=== PATIENT | male | born 1965 | race Caucasian/White ===

== ENCOUNTER 2021-05-12 19:28 | Inpatient (IN) | payer OTHER ==
[~2021-05-12] VITALS: Ht 190.5 cm; Wt 86.4 kg
[2021-05-12 19:54] LABS: BASOPHILS ABSOLUTE AUTO 0.02 K/mm3 (0.00-0.23); BASOPHILS PERCENT AUTO 0 % (0-2); EOSINOPHILS PERCENT AUTO 0 % (0-6); Hemoglobin 15.9 g/dL (13.5-17.5); IMMATURE GRAN ABSOLUTE AUTO 0.08 K/mm3 (0.00-0.10); IMMATURE GRAN PERCENT AUTO 1 % (0-1); LYMPHOCYTES ABSOLUTE AUTO 0.94 K/mm3 (0.84-5.20); LYMPHOCYTES PERCENT AUTO 8 % (21-46); MONOCYTES ABSOLUTE AUTO 1.17 K/mm3 (0.16-1.47); MONOCYTES PERCENT AUTO 10 % (4-13); Mean Corpuscular HGB 31.4 pg (26.0-34.0); Mean Corpuscular HGB Conc 33.1 g/dL (31.5-36.5); Mean Corpuscular Volume 95 fL (80-100); Mean Platelet Volume 9.7 fL (9.1-12.4); NEUTROPHILS ABSOLUTE AUTO 9.91 K/mm3 (1.96-9.15); NEUTROPHILS PERCENT AUTO 82 % (41-73); Platelet Count 359 K/mm3 (150-400); RDW Coefficient Variation 13.6 % (11.7-14.2); RDW Standard Deviation 47.3 fL (35.1-46.3); Red Blood Cell Count 5.06 M/mm3 (4.30-5.90); White Blood Cell Count 12.12 K/mm3 (4.00-11.30)
[2021-05-12 20:26] LABS: Troponin I 0.264 ng/mL (0.000-0.040)
[2021-05-12 21:18] LABS: Albumin, Blood 3.2 g/dL (3.4-5.0); Albumin/Globulin Ratio 0.7 (0.8-1.8); Bilirubin, Total 3.7 mg/dL (0.1-1.0); Bun/Creatinine Ratio 24.8 (12.0-20.0); Calcium, Blood 8.9 mg/dL (8.5-10.1); Creatinine, Blood 1.65 mg/dL (0.60-1.20); Globulin, Blood 4.3 g/dL (2.2-4.0); Potassium, Blood 4.9 mmol/L (3.5-5.5); Total Protein, Blood 7.5 g/dL (6.4-8.2)
[2021-05-13 04:50] LABS: Influenza A, PCR NEGATIVE (NEGATIVE); Influenza B, PCR NEGATIVE (NEGATIVE); Resp Syncytial Virus, PCR NEGATIVE (NEGATIVE); SARS-Cov-2 (COVID-19) PCR, MMC NEGATIVE (NEGATIVE)
[2021-05-13 04:57] LABS: Troponin I 0.228 ng/mL (0.000-0.040)
[2021-05-13 05:04] LABS: Albumin, Blood 3.2 g/dL (3.4-5.0); Albumin/Globulin Ratio 0.8 (0.8-1.8); Bilirubin, Total 3.3 mg/dL (0.1-1.0); Bun/Creatinine Ratio 27.7 (12.0-20.0); Calcium, Blood 9.1 mg/dL (8.5-10.1); Creatinine, Blood 1.55 mg/dL (0.60-1.20); Globulin, Blood 4.1 g/dL (2.2-4.0); Total Protein, Blood 7.3 g/dL (6.4-8.2)
[2021-05-13 05:18] LABS: Creatine Kinase MB 6.5 ng/mL (0.0-3.6); Creatine Kinase MB Index 1.6 (0.0-4.0)
[2021-05-13 05:39] LABS: BASOPHILS ABSOLUTE AUTO 0.02 K/mm3 (0.00-0.23); BASOPHILS PERCENT AUTO 0 % (0-2); EOSINOPHILS PERCENT AUTO 0 % (0-6); Hemoglobin 15.7 g/dL (13.5-17.5); IMMATURE GRAN ABSOLUTE AUTO 0.08 K/mm3 (0.00-0.10); IMMATURE GRAN PERCENT AUTO 1 % (0-1); LYMPHOCYTES ABSOLUTE AUTO 0.91 K/mm3 (0.84-5.20); LYMPHOCYTES PERCENT AUTO 7 % (21-46); MONOCYTES ABSOLUTE AUTO 0.87 K/mm3 (0.16-1.47); MONOCYTES PERCENT AUTO 7 % (4-13); Mean Corpuscular HGB 31.3 pg (26.0-34.0); Mean Corpuscular HGB Conc 34.1 g/dL (31.5-36.5); Mean Corpuscular Volume 92 fL (80-100); Mean Platelet Volume 9.8 fL (9.1-12.4); NEUTROPHILS ABSOLUTE AUTO 11.13 K/mm3 (1.96-9.15); NEUTROPHILS PERCENT AUTO 86 % (41-73); NRBC ABSOLUTE 0.02 K/mm3 (0.00-0.02); NRBC Auto 0.2 /100 WBC (0.0-0.2); Platelet Count 366 K/mm3 (150-400); RDW Coefficient Variation 13.4 % (11.7-14.2); RDW Standard Deviation 44.7 fL (35.1-46.3); Red Blood Cell Count 5.02 M/mm3 (4.30-5.90); White Blood Cell Count 13.01 K/mm3 (4.00-11.30)
[2021-05-13 11:29] LABS: Troponin I 0.219 ng/mL (0.000-0.040)
--- NOTE | 2021-05-13 11:31 | NUR ---
Echocardiogram completed.
[2021-05-13 11:44] LABS: Creatine Kinase MB 6.2 ng/mL (0.0-3.6); Creatine Kinase MB Index 1.9 (0.0-4.0)
[2021-05-13 12:08] LABS: U Amphetamine Screen DETECTED; U Barbituate Screen Not Detected; U Benzodiazapine Screen Not Detected; U Buprenorphine Screen Not Detected; U Cannabinoids Screen Not Detected; U Cocaine Screen Not Detected; U Methadone Screen Not Detected; U Methamphetamine Screen DETECTED; U Opiates Screen Not Detected; U Oxycodone Screen Not Detected; U Phencyclidine Screen Not Detected; U Propoxyphene Screen Not Detected
--- NOTE | 2021-05-13 18:48 | NUR ---
ADMIT NOTE RECEIVED REPORT FROM DIANA SCHAFER IN ED. PT TO ROOM AT 1444 VIA GURNEY, 1 PERSON ASSIST TRANSFERED TO BED. PT ORIENTED TO ROOM AND CALL LIGHT. EDCUATED ON FALL RISK AND BED ALARM. PT ALERT, BUT FALLS ASLEEP QUICKLY; ORIENTED x4; CALM AND COOPERATIVE WITH CARE. PT DENIES RECREATIONAL DRUG USE IN THE LAST 12 MONTHS. PT DENIES PAIN, CHEST PAIN, SOB, NAUSEA AND DIZZINESS AT THIS TIME. PT STATES PRIOR TO BEING ADMITTED HIS SOB HAS BEEN WORSENING OVER THE LAST 2-3 WEEKS. PT RECEIVING IV LASIX AND STARTED ON METOPROLOL. PT ON HEPARIN GTT. DR GUTIERRES AT BEDSIDE THIS EVENING TO SEE PATIENT. VSS. NO OTHER ACUTE CHANGES NOTED. WILL CONTINUE TO MONITOR UNITL REPORT GIVEN TO ONCOMING RN.
[2021-05-14 03:58] LABS: BASOPHILS ABSOLUTE AUTO 0.02 K/mm3 (0.00-0.23); BASOPHILS PERCENT AUTO 0 % (0-2); EOSINOPHILS ABSOLUTE AUTO 0.02 K/mm3 (0.00-0.68); EOSINOPHILS PERCENT AUTO 0 % (0-6); Hemoglobin 15.2 g/dL (13.5-17.5); IMMATURE GRAN ABSOLUTE AUTO 0.08 K/mm3 (0.00-0.10); IMMATURE GRAN PERCENT AUTO 1 % (0-1); LYMPHOCYTES ABSOLUTE AUTO 1.26 K/mm3 (0.84-5.20); LYMPHOCYTES PERCENT AUTO 9 % (21-46); MONOCYTES ABSOLUTE AUTO 0.88 K/mm3 (0.16-1.47); MONOCYTES PERCENT AUTO 6 % (4-13); Mean Corpuscular HGB 31.7 pg (26.0-34.0); Mean Corpuscular HGB Conc 34.5 g/dL (31.5-36.5); Mean Corpuscular Volume 92 fL (80-100); Mean Platelet Volume 10.3 fL (9.1-12.4); NEUTROPHILS ABSOLUTE AUTO 11.63 K/mm3 (1.96-9.15); NEUTROPHILS PERCENT AUTO 84 % (41-73); NRBC ABSOLUTE 0.06 K/mm3 (0.00-0.02); NRBC Auto 0.4 /100 WBC (0.0-0.2); Platelet Count 341 K/mm3 (150-400); RDW Coefficient Variation 13.6 % (11.7-14.2); Red Blood Cell Count 4.79 M/mm3 (4.30-5.90); White Blood Cell Count 13.89 K/mm3 (4.00-11.30)
[2021-05-14 04:20] LABS: Albumin, Blood 2.8 g/dL (3.4-5.0); Anion Gap 11 mmol/L (6-16); Blood Urea Nitrogen 39 mg/dL (8-24); Bun/Creatinine Ratio 27.7 (12.0-20.0); CO2, Blood 27 mmol/L (21-32); Calcium, Blood 8.5 mg/dL (8.5-10.1); Chloride, Blood 95 mmol/L (98-108); Creatinine, Blood 1.41 mg/dL (0.60-1.20); Glomerular Filtration Rate 52 (60-); Glucose, Blood 128 mg/dL (70-99); Magnesium, Blood 1.9 mg/dL (1.6-2.4); Phosphorus, Blood 3.1 mg/dL (2.5-4.9); Potassium, Blood 3.5 mmol/L (3.5-5.5); Sodium, Blood 133 mmol/L (136-145)
--- NOTE | 2021-05-14 05:20 | NUR ---
SHIFT SUMMARY PT A&OX4, PLEASANT AND COOPERATIVE. SP02>92% ON 2L NC. PT DENIES SOB. TELEMETYR READS SINUS TACH, 100'S. DENIED CP/PRESSURE. PT USED URINAL TO VOID DARK YELLOW URINE. NO BM THIS SHIFT. HEPARIN INFUSED THIS SHIFT. PT SLEPT MOST OF NIGHT. PT HAS BEEN NPO SINCE MIDNIGHT FOR POSSIBLE PROCEDURE. CALL LIGHT IN REACH. WILL GIVE REPORT TO ONCOMING NURSE.
--- NOTE | 2021-05-14 17:26 | NUR ---
SHIFT SUMMARY PT A&Ox4; CALM AND COOPERATIVE WITH CARE. PT RESTING IN BED DURING SHIFT. PT DENIES PAIN, CHEST PAIN, SOB, NASUEA AND DIZZINESS T/O SHIFT. PT RECEIVING IV LASIX. ELEVATED BP THIS AM, INCREASED DOSE OF METORPOLOL PER ORDERS, BP TRENDING DOWN. OTHER VSS. PLANS FOR NPO AT ND FOR POSSIBLE ANGIO TOMORROW. NO OTHER ACUTE CHANGES NOTED. WILL CONTINUE TO MONITOR UNTIL REPORT GIVEN TO ONCOMING RN.
--- NOTE | 2021-05-14 19:20 | NUR ---
ASSUMPTION OF CARE NOTE PT ALERT AND ORIENTED X 4. SPO2 97% VIA 2L NC. HEPARIN DRIP INFUSING IN RIGHT AC AT 18/UNITS/KG/HR. NO PAIN REPORTED. VITAL SIGNS STABLE, WILL CONTINUE TO MONITOR. CALL LIGHT IN REACH.
--- NOTE | 2021-05-14 20:27 | NUR ---
LEFT AC IV INFUSING HEPARIN PER ORDERS AT 18UNITS/KG/HR, 33.8ML/HR. PER REPORT HEPARIN DOSE HAS NOT CHANGED SINCE ADMITTANCE.
--- NOTE | 2021-05-15 02:45 | NUR ---
CARE NOTE PT WAS REPORTING FEELING OF DISTENTION IN ABD AND STATED THAT "STOMACH FELT UPSET," PT ALSO REPORTED FEELINGS OF NAUSEA. VSS, MEDICATED PER EMAR FOR NAUSEA. PT NOW APPEARS TO BE SLEEPING. WILL CONTINUE TO MONITOR.
[2021-05-15 03:49] LABS: BASOPHILS ABSOLUTE AUTO 0.01 K/mm3 (0.00-0.23); BASOPHILS PERCENT AUTO 0 % (0-2); EOSINOPHILS ABSOLUTE AUTO 0.04 K/mm3 (0.00-0.68); EOSINOPHILS PERCENT AUTO 0 % (0-6); Hematocrit 45.8 % (37.0-53.0); Hemoglobin 15.7 g/dL (13.5-17.5); IMMATURE GRAN ABSOLUTE AUTO 0.05 K/mm3 (0.00-0.10); IMMATURE GRAN PERCENT AUTO 0 % (0-1); LYMPHOCYTES ABSOLUTE AUTO 1.35 K/mm3 (0.84-5.20); LYMPHOCYTES PERCENT AUTO 11 % (21-46); MONOCYTES ABSOLUTE AUTO 0.98 K/mm3 (0.16-1.47); MONOCYTES PERCENT AUTO 8 % (4-13); Mean Corpuscular HGB 31.7 pg (26.0-34.0); Mean Corpuscular HGB Conc 34.3 g/dL (31.5-36.5); Mean Corpuscular Volume 92 fL (80-100); Mean Platelet Volume 10.4 fL (9.1-12.4); NEUTROPHILS ABSOLUTE AUTO 9.64 K/mm3 (1.96-9.15); NEUTROPHILS PERCENT AUTO 80 % (41-73); NRBC ABSOLUTE 0.02 K/mm3 (0.00-0.02); NRBC Auto 0.2 /100 WBC (0.0-0.2); Platelet Count 321 K/mm3 (150-400); RDW Coefficient Variation 13.7 % (11.7-14.2); RDW Standard Deviation 45.1 fL (35.1-46.3); Red Blood Cell Count 4.96 M/mm3 (4.30-5.90); White Blood Cell Count 12.07 K/mm3 (4.00-11.30)
[2021-05-15 04:25] LABS: Albumin, Blood 2.6 g/dL (3.4-5.0); Anion Gap 11 mmol/L (6-16); Blood Urea Nitrogen 33 mg/dL (8-24); Bun/Creatinine Ratio 25.6 (12.0-20.0); CO2, Blood 30 mmol/L (21-32); Calcium, Blood 8.1 mg/dL (8.5-10.1); Chloride, Blood 92 mmol/L (98-108); Creatinine, Blood 1.29 mg/dL (0.60-1.20); Glomerular Filtration Rate 57 (60-); Glucose, Blood 139 mg/dL (70-99); Magnesium, Blood 1.7 mg/dL (1.6-2.4); Phosphorus, Blood 2.3 mg/dL (2.5-4.9); Potassium, Blood 3.3 mmol/L (3.5-5.5); Sodium, Blood 133 mmol/L (136-145)
--- NOTE | 2021-05-15 06:03 | NUR ---
SHIFT SUMMARY PT ALERT AND ORIENTED X 4. HEPARIN INFUSING AT 18UNITS/KG/HR PER ORDERS. SPO2 REMAINS IN 90'S VIA 1LNC, VITAL SIGNS STABLE. PT DENIED CHEST PAIN/PRESSURE DURING SHIFT BUT REPORTED ABD PAIN AND NAUSEA. NAUSEA WAS RESOLVED AFTER ZOFRAN ADMINISTRATION PER EMAR AND PT REPORTS BELIEVING ABD PAIN IS DUE TO CONSTIPATION, WILL REPORT THIS TO ONCOMING NURSE FOR REQUEST FOR BOWEL CARE ORDERS. PT HAS BEEN NPO SINCE MIDNIGHT AND CONTINUES TO UTILIZE BEDSIDE URINAL. CALL LIGHT IN REACH, WILL CONTINUE TO MONITOR.
--- NOTE | 2021-05-15 18:01 | NUR ---
PT REMAINS A&OX4. AM BP ELEVATED- SCHEDULED BP MEDS ADMINISTERED, REMAINED WNL SINCE ADMINISTRATION. AFEBRILE. NO C/O PAIN. AUO. NO BM- C/O CONSTIPATION, ENCOURAGED FREQUENT AMBULATION. TOLERATING CURRENT DIET. HEPARIN GTT DC'D, TRANSITION TO [place] TONIGHT- NO S/S OF BLEEDING NOTED AT THIS TIME. ANGIO HELD PER CARDIO- NO RESCHEDULE DATE PROVIDED. BLE VENOUS DUPLEX COMPLETED- SEE RESULTS. FREQUENT ROUNDS TO ENSURE PT SAFETY. PT IN NO APPARENT DISTRESS AT THIS TIME. WILL CONTINUE TO MONITOR UNTIL TRANSFER OF CARE TO ONCOMING RN.
[2021-05-16 04:49] LABS: Albumin, Blood 2.7 g/dL (3.4-5.0); Anion Gap 10 mmol/L (6-16); Blood Urea Nitrogen 29 mg/dL (8-24); Bun/Creatinine Ratio 20.4 (12.0-20.0); CO2, Blood 32 mmol/L (21-32); Calcium, Blood 8.4 mg/dL (8.5-10.1); Chloride, Blood 90 mmol/L (98-108); Creatinine, Blood 1.42 mg/dL (0.60-1.20); Glomerular Filtration Rate 51 (60-); Glucose, Blood 133 mg/dL (70-99); Magnesium, Blood 1.9 mg/dL (1.6-2.4); Phosphorus, Blood 2.9 mg/dL (2.5-4.9); Potassium, Blood 3.1 mmol/L (3.5-5.5); Sodium, Blood 132 mmol/L (136-145)
--- NOTE | 2021-05-16 05:21 | NUR ---
PT HAS BEEN SLEEPING THROUGHOUT SHIFT. BP SLIGHTLY ELEVATED BUT NOT WITHIN PARAMETERS FOR PRN HYDRALAZINE. DIURESING. DENIES SOB OR CHEST PAIN. EDUCATED PATIENT ON DIAGNOSIS AND TREATMENT PLAN. CONTINUE EDUCATION DISEASE PROCESSES ARE NEW TO PATIENT.
[2021-05-16 08:09] LABS: HBSAG SCREEN Negative (Negative); HEP B CORE AB, TOT Negative (Negative); HEP C VIRUS AB <0.1 (0.0-0.9)
--- NOTE | 2021-05-16 15:56 | NUR ---
PT REMAINS A&OX4. AM BP ELEVATED- SCHEDULED BP MEDS ADMINISTERED, BP REMAINED WNL SINCE ADMINISTRATION. AUO. NO BM- C/O CONSTIPATION, FREQUENT AMBULATION AND ORAL INTAKE ENCOURAGE. TOLERATING CURRENT DIET. TENTATIVE ANGIO SCHEDULED TOMORROW (05/17), WILL NEED TO BE NPO AT 00:00 PER CARDIO. K REPLACED. FREQUENT ROUNDS TO ENSURE PT SAFETY. PT IN NO APPARENT DISTRESS AT THIS TIME. WILL CONTINUE TO MONITOR UNTIL TRANSFER OF CARE TO ONCOMING RN.
--- NOTE | 2021-05-16 22:08 | NUR ---
EVENT NOTE PT REQUESTED RN TO ROOM WITH COMPLAINT OF ITCHING AND TINGLING TO RIGHT HAND. IV SITE IS PATENT AND RUNNING LEVAQUIN AND LR TO R HAND. NO SWELLING OR REDNESS BUT PT IS VISIBLY SCRATCHING AND WIGGLING FINGERS. PLACED LEVAQUIN ON STAND-BY SINCE THIS IS A NEW MEDICATION AND NOTIFIED PRIMARY RN YFN OF NEED TO NOTIFY MD. ADVISED PT TO CALL AGAIN IF FURTHER CONCERNS OR CHANGES.
[2021-05-17 04:51] LABS: Albumin, Blood 2.6 g/dL (3.4-5.0); Anion Gap 10 mmol/L (6-16); Blood Urea Nitrogen 28 mg/dL (8-24); Bun/Creatinine Ratio 19.3 (12.0-20.0); CO2, Blood 32 mmol/L (21-32); Calcium, Blood 8.8 mg/dL (8.5-10.1); Chloride, Blood 88 mmol/L (98-108); Creatinine, Blood 1.45 mg/dL (0.60-1.20); Glomerular Filtration Rate 50 (60-); Glucose, Blood 139 mg/dL (70-99); Magnesium, Blood 1.9 mg/dL (1.6-2.4); Phosphorus, Blood 2.8 mg/dL (2.5-4.9); Potassium, Blood 3.6 mmol/L (3.5-5.5); Sodium, Blood 130 mmol/L (136-145)
--- NOTE | 2021-05-17 06:33 | NUR ---
PT REPORTING CONSITPATION AT STRT OF SHIFT. ADMINISERED STOOL SOFTNER, PT TAKES AHOWER AND IS ABLE TO HAVE BM. CONTINUE BOWEL REGIMEN.
--- NOTE | 2021-05-17 16:54 | NUR ---
PT A&OX4. VSS. NO C/O PAIN. AUO. TOLERATING CURRENT DIET. ANGIO COMPLETE- PENDING PROVIDENCE EVAL PER CARDIO. IVF STARTED. FREQUENT ROUNDS TO ENSURE PT SAFETY. PT IN NO APPARENT DISTRESS AT THIS TIME. WILL CONTINUE TO MONITOR UNTIL TRANSFER OF CARE TO ONCOMING RN.
--- NOTE | 2021-05-18 04:08 | NUR ---
NO SIGNIFICANT EVENTS THIS SHIFT. PT RECIEVED 1L NS, URINE IS RENITA COLORED. VSS, NO ABNORMAL CARDIAC RHYTHMS THIS SHIFT. PLACED RIGHT WRIST IN SPLINT PATIENT WAS OVER USING IT RESULTING IN SLIGHT OOZING FROM RADIAL SITE. STABALIZED WITH SPLINT PLACEMENT.
[2021-05-18 09:39] LABS: Alanine Aminotransfer (ALT/SGP 270 U/L (12-78); Albumin, Blood 2.4 g/dL (3.4-5.0); Albumin/Globulin Ratio 0.7 (0.8-1.8); Alk Phos 123 U/L (50-136); Anion Gap 9 mmol/L (6-16); Aspartate Aminotrans (AST/SGOT 95 U/L (12-37); Bilirubin, Total 1.3 mg/dL (0.1-1.0); Blood Urea Nitrogen 49 mg/dL (8-24); Bun/Creatinine Ratio 40.8 (12.0-20.0); CO2, Blood 26 mmol/L (21-32); Calcium, Blood 8.2 mg/dL (8.5-10.1); Chloride, Blood 97 mmol/L (98-108); Globulin, Blood 3.6 g/dL (2.2-4.0); Glomerular Filtration Rate >60 (60-); Glucose, Blood 115 mg/dL (70-99); Sodium, Blood 132 mmol/L (136-145)
--- NOTE | 2021-05-18 19:12 | NUR ---
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 PATIENT HAS BEEN ALERT AND ORIENTED, RESTING MOST OF THE DAY. I HELD HIS 1400 HYDRALAZINE, DUE TO LOWER BLOOD PRESSURE OF 90'S OVER 60'S AFTER TYPICALLTY BEING IN THE 120'S. NO PRN HYDRALAZINE USED THIS SHIFT, PATIENT DENIES CHEST PAIN, RESTING MOST OF THE DAY. AWAITING [place] FOR BED PLACEMENT.
[2021-05-19 04:36] LABS: Alanine Aminotransfer (ALT/SGP 196 U/L (12-78); Albumin, Blood 2.3 g/dL (3.4-5.0); Albumin/Globulin Ratio 0.6 (0.8-1.8); Alk Phos 107 U/L (50-136); Anion Gap 9 mmol/L (6-16); Aspartate Aminotrans (AST/SGOT 60 U/L (12-37); Bilirubin, Total 1.1 mg/dL (0.1-1.0); Blood Urea Nitrogen 59 mg/dL (8-24); CO2, Blood 25 mmol/L (21-32); Calcium, Blood 8.1 mg/dL (8.5-10.1); Chloride, Blood 97 mmol/L (98-108); Creatinine, Blood 1.18 mg/dL (0.60-1.20); Globulin, Blood 3.8 g/dL (2.2-4.0); Glomerular Filtration Rate >60 (60-); Glucose, Blood 130 mg/dL (70-99); Potassium, Blood 4.5 mmol/L (3.5-5.5); Sodium, Blood 131 mmol/L (136-145); Total Protein, Blood 6.1 g/dL (6.4-8.2)
--- NOTE | 2021-05-19 05:09 | NUR ---
KNOCKER OUT SUMMARY PT IS AXO X4. PT DENIED ANY CP OR PRESSURE THIS SHIFT. PT MAINTAINED O2 SATS >92% ON EM AIR THIS SHIFT. BP WNL AND STABLE THIS SHIFT. PT SLEPT COMFORTABLY IN BED FOR MOST OF THE SHIFT. PT NPO SINCE 2330 PER ORDER. WILL REPORT TO ONCOMING RN.
--- NOTE | 2021-05-19 11:09 | NUR ---
REPORT TO [facility] CHARGE NURSE FOR COBRA TRANSFER.
[2021-05-19 11:18] LABS: Influenza A, PCR NEGATIVE (NEGATIVE); Influenza B, PCR NEGATIVE (NEGATIVE); Resp Syncytial Virus, PCR NEGATIVE (NEGATIVE); SARS-Cov-2 (COVID-19) PCR, MMC NEGATIVE (NEGATIVE)
== END 2021-05-19 10:50 | disposition short-term general hospital (02) | DRG 280 ==
LOC: ER 19:28 → PCU 23:04 → ERHOLD 23:04 → PCU 05-13 14:35
PROVIDERS: Emergency Medicine; Internal Medicine; ADMIT Internal Medicine
PROC: 4A023N7 Measurement of Cardiac Sampling and Pressure, Left Heart, Percutaneous Approach (ICD-10-PCS; principal; 2021-05-17)
PROC: B2111ZZ Fluoroscopy of Multiple Coronary Arteries using Low Osmolar Contrast (ICD-10-PCS; 2021-05-17)
DX: I13.0 Hypertensive heart and chronic kidney disease with heart failure and stage 1 through stage 4 chronic kidney disease, or unspecified chronic kidney disease (principal); I21.4 Non-ST elevation (NSTEMI) myocardial infarction; J96.01 Acute respiratory failure with hypoxia; I50.21 Acute systolic (congestive) heart failure; R18.8 Other ascites; N17.9 Acute kidney failure, unspecified; I27.82 Chronic pulmonary embolism; Z20.822 Contact with and (suspected) exposure to COVID-19; N18.30 Chronic kidney disease, stage 3 unspecified; R74.01 Elevation of levels of liver transaminase levels; K74.60 Unspecified cirrhosis of liver; I27.20 Pulmonary hypertension, unspecified; E87.6 Hypokalemia; E83.42 Hypomagnesemia; E83.39 Other disorders of phosphorus metabolism; F10.20 Alcohol dependence, uncomplicated; Z28.21 Immunization not carried out because of patient refusal
CPT/HCPCS: 0241U; 36415; 71045; 71260; 76705; 76937; 80053; 80069; 82550; 82553; 83735; 83880; 84484; 85025; 85347; 85379; 85520; 86704; 86708; 86803; 87340; 93005; 93010; 93306; 93458; 93567; 93970; 94760; 96365; 96366; 96375; 96376; 99152; 99153; 99285-25; A9270; C1769; C1894; J0360; J1644; J1650; J1940; J2060; J2250; J2405; J3010; J3475; J7030; J7050; J7060; Q9967

== ENCOUNTER 2021-07-03 03:08 | Inpatient (IN) | payer OTHER ==
[~2021-07-03] VITALS: Ht 190.5 cm; Wt 95.5 kg
[~2021-07-03 03:08] MED LIST: ASPIR 8181 M1 PO; K-Dur20 MEQ PO; Lasix40 MG PO; Prinivil5 MG PO; Protonix40 MG PO; Toprol Xl25 MG PO
[2021-07-03 03:31] LABS: BASOPHILS ABSOLUTE AUTO 0.05 K/mm3 (0.00-0.23); BASOPHILS PERCENT AUTO 1 % (0-2); EOSINOPHILS PERCENT AUTO 1 % (0-6); Hematocrit 36.9 % (37.0-53.0); Hemoglobin 11.4 g/dL (13.5-17.5); IMMATURE GRAN ABSOLUTE AUTO 0.03 K/mm3 (0.00-0.10); IMMATURE GRAN PERCENT AUTO 0 % (0-1); LYMPHOCYTES ABSOLUTE AUTO 1.45 K/mm3 (0.84-5.20); LYMPHOCYTES PERCENT AUTO 15 % (21-46); MONOCYTES ABSOLUTE AUTO 0.88 K/mm3 (0.16-1.47); MONOCYTES PERCENT AUTO 9 % (4-13); Mean Corpuscular HGB 27.4 pg (26.0-34.0); Mean Corpuscular HGB Conc 30.9 g/dL (31.5-36.5); Mean Corpuscular Volume 89 fL (80-100); Mean Platelet Volume 9.1 fL (9.1-12.4); NEUTROPHILS ABSOLUTE AUTO 7.06 K/mm3 (1.96-9.15); NEUTROPHILS PERCENT AUTO 74 % (41-73); Platelet Count 463 K/mm3 (150-400); RDW Coefficient Variation 17.8 % (11.7-14.2); RDW Standard Deviation 58.6 fL (35.1-46.3); Red Blood Cell Count 4.16 M/mm3 (4.30-5.90); White Blood Cell Count 9.57 K/mm3 (4.00-11.30)
[2021-07-03 04:02] LABS: Albumin, Blood 2.8 g/dL (3.4-5.0); Albumin/Globulin Ratio 0.6 (0.8-1.8); Bilirubin, Total 0.7 mg/dL (0.1-1.0); Bun/Creatinine Ratio 17.7 (12.0-20.0); Calcium, Blood 8.3 mg/dL (8.5-10.1); Creatinine, Blood 1.47 mg/dL (0.60-1.20); Globulin, Blood 4.8 g/dL (2.2-4.0); Potassium, Blood 3.5 mmol/L (3.5-5.5); Total Protein, Blood 7.6 g/dL (6.4-8.2)
[2021-07-03 04:09] LABS: Source, Urine Voided
[2021-07-03 04:09] LABS: C-Reactive Protein, High Sens. 60.2 mg/L (0.000-3.000); Troponin I 0.658 ng/mL (0.000-0.040)
[2021-07-03 04:13] LABS: Bilirubin, Urine Neg (Neg); Blood, Urine 1+ (Neg); Glucose Qualitative, Urine Neg (Neg); Ketones, Urine Neg (Neg); Leukocyte Esterase, Urine Neg (Neg); Nitrite, Urine Neg (Neg); Protein, Urine 3+ (Neg); Urobilinogen, Urine 2+ (Normal)
[2021-07-03 04:18] LABS: Influenza A, PCR NEGATIVE (NEGATIVE); Influenza B, PCR NEGATIVE (NEGATIVE); Resp Syncytial Virus, PCR NEGATIVE (NEGATIVE); SARS-Cov-2 (COVID-19) PCR, MMC NEGATIVE (NEGATIVE)
[2021-07-03 04:44] LABS: Appearance, Urine Hazy (Clear); Bacteria Not Seen /hpf; Color, Urine Yellow (P-Yellow); Red Blood Cells, Urine 0-2 /hpf (0-2); Squamous Epithelial Cells Not Seen /hpf (Few); White Blood Cells, Urine Not Seen /hpf (0-5)
[2021-07-03 04:51] LABS: U Amphetamine Screen Not Detected; U Barbituate Screen Not Detected; U Benzodiazapine Screen Not Detected; U Buprenorphine Screen Not Detected; U Cannabinoids Screen DETECTED; U Cocaine Screen Not Detected; U Methadone Screen Not Detected; U Methamphetamine Screen DETECTED; U Opiates Screen Not Detected; U Oxycodone Screen Not Detected; U Phencyclidine Screen Not Detected; U Propoxyphene Screen Not Detected
[2021-07-03 05:47] LABS: Bun/Creatinine Ratio 17.1 (12.0-20.0); Calcium, Blood 8.2 mg/dL (8.5-10.1); Creatinine, Blood 1.52 mg/dL (0.60-1.20); Potassium, Blood 3.5 mmol/L (3.5-5.5)
--- NOTE | 2021-07-03 06:58 | NUR ---
PT ARRIVAL PT ARRIVED TO UNIT AT 0610. PT IS A/OX4. TELE SHOWS SINUS TACH @ 140. LABORED BREATHING BUT DENIES SOB. VITAL SIGNS STABLE. AWAITING TO GIVE REPORT TO JACKELYN ORTIZ. CALL LIGHT IN REACH, BED IN LOWEST POSITION.
--- NOTE | 2021-07-03 13:11 | NUR ---
Patient is stting up in bed and alert. Pt tells me about his medical issues, his concerns, his family unit and his [employer] shelby. Patient explains that he has been a part of the evangelical most of his life and is still active in the evangelical currently. Pt says that his shelby is a source of strength for him. He also shares about how he is the caregiver for his mother and so he needs to be well soon. I normalize his experience and provide therapeutic listening and prayer. Patient responds well and shows signs of being encouraged in his shelby. I will continue to remain available to patient and family.
--- NOTE | 2021-07-03 18:48 | NUR ---
SHIFT SUMMARY PT A&O X4. VSS. SPO2 > 92% ON RA. MONITOR SHOWING AFIB/AFLUTTER, HR 120's-140's W/ CARDIZEM GTT INFUSING UNTIL MD ISTRATE W/ NEW ORDER TO TRANSITION TO PO CARDIZEM ONCE PT HR SUCCESSFULLY SUSTAINING HR 90's-110. PT RECIEVED PO CARIDIZEM X1 & CARDIZEM GTT DC'd AFTER PER MD INSTRUCTION. PO CARDIZEM THEN DC'd BY MD PER PHARMACY RECOMMENDATION & TRANSITIONED TO SCHEDULED PO METOPROLOL & PRN IV METOPROLOL FOR HR > 110 BPM. MONITOR NOW SHOWING AFLUTTER, HR 70's-100. PT W/ HARRIS CATH PATENT & DRAINING W/ SIGNIFICANT OUTPUT TODAY, SEE I/O's. NO EVENTS TODAY.
[2021-07-04 00:25] LABS: BASOPHILS ABSOLUTE AUTO 0.05 K/mm3 (0.00-0.23); BASOPHILS PERCENT AUTO 1 % (0-2); EOSINOPHILS ABSOLUTE AUTO 0.16 K/mm3 (0.00-0.68); EOSINOPHILS PERCENT AUTO 2 % (0-6); Hematocrit 35.4 % (37.0-53.0); Hemoglobin 11.1 g/dL (13.5-17.5); IMMATURE GRAN ABSOLUTE AUTO 0.03 K/mm3 (0.00-0.10); IMMATURE GRAN PERCENT AUTO 0 % (0-1); LYMPHOCYTES ABSOLUTE AUTO 1.31 K/mm3 (0.84-5.20); LYMPHOCYTES PERCENT AUTO 14 % (21-46); MONOCYTES ABSOLUTE AUTO 0.75 K/mm3 (0.16-1.47); MONOCYTES PERCENT AUTO 8 % (4-13); Mean Corpuscular HGB 27.5 pg (26.0-34.0); Mean Corpuscular HGB Conc 31.4 g/dL (31.5-36.5); Mean Corpuscular Volume 88 fL (80-100); Mean Platelet Volume 9.1 fL (9.1-12.4); NEUTROPHILS ABSOLUTE AUTO 6.84 K/mm3 (1.96-9.15); NEUTROPHILS PERCENT AUTO 75 % (41-73); Platelet Count 483 K/mm3 (150-400); RDW Coefficient Variation 17.7 % (11.7-14.2); RDW Standard Deviation 57.8 fL (35.1-46.3); Red Blood Cell Count 4.03 M/mm3 (4.30-5.90); White Blood Cell Count 9.14 K/mm3 (4.00-11.30)
[2021-07-04 00:57] LABS: Albumin, Blood 2.5 g/dL (3.4-5.0); Albumin/Globulin Ratio 0.6 (0.8-1.8); Bilirubin, Total 0.6 mg/dL (0.1-1.0); Bun/Creatinine Ratio 16.9 (12.0-20.0); Creatinine, Blood 1.6 mg/dL (0.60-1.20); Magnesium, Blood 1.7 mg/dL (1.6-2.4); Potassium, Blood 3.6 mmol/L (3.5-5.5); Thyroid Stimulating Hormone 2.12 uIU/mL (0.360-4.800); Total Protein, Blood 6.5 g/dL (6.4-8.2)
--- NOTE | 2021-07-04 04:21 | NUR ---
CARDIAC EVENTS PT HAD A 12 RUN OF VTACH AT 0321, ASYMTOMATIC AND VITAL SIGNS STABLE. AT 0400 PT HAD ANOTHER 11 RUN OF TACH AND RAN REMAINED IN THE 140'S. PT GIVEN MEDICATIONS PER EMAR WITH SUCESS, RATE NOW IN THE 100'S. AWATING TO CALL HOSPITALIST FOR FURTHER INSTRUCTIONS.
--- NOTE | 2021-07-04 06:02 | NUR ---
SHIFT SUMMARY ASSUMED CARE OF PT AT 1900. PT IS A/OX4. HEART SOUNDS REGULAR, LUNG SOUNDS DIMINISHED ON THE L AND HAS CRACKLES ON THE R. SEE PREVIOUS NOTE FOR CARDIAC EVENTS. PT WAS CONTIENT. HARRIS DRAINING CLEAR YELLOW URINE. PT HAD NO NEW COMPLAINTS. PT SISTER IN LAW CALLED ABOUT PT FOR AN UPDATE. PT CONSENTED FOR THIS NURSE TO TALK WITH SISTER. SISTER CONCERNED THAT PT WILL NOT TAKE CARE OF HIMSELF ONCE HE LEAVES HOSPITAL. SISTER, AMARILYS, IS WORRIED PT WILL NOT GO GET MEDICATION AGAIN AND END UP IN THE HOSPITAL. WHEN ASKED IF SHE KNEW ABOUT PT DRUG HISTORY AMARILYS DENIED KNOWNING. SISTER DENIES KNOWING MUCH ABOUT PT MEDICAL HISTORY BUT IS CONCERNED AND WONDERING IF PT IS GOING TO SOON.
--- NOTE | 2021-07-04 18:29 | NUR ---
SHIFT SUMMARY PT A&O X4. VSS. SPO2 > 92% ON RA. MONITOR SHOWING AFLUTTER, HR 100's-140's. PRN IV LOPRESSOR GIVEN X4 THIS SHIFT FOR HR >110 PER ORDERS. MD MEI W/ NEW ORDER FOR PO DIGOXEN X2 GIVEN TODAY. PT DIURESING PER ORDERS, HARRIS CATH PATENT & DRAINING SIGNIFICANT AMOUNT OF OUTPUT, SEE I/O's.
--- NOTE | 2021-07-05 01:12 | NUR ---
INCREASED HEARTRATE PT HEART RATE WAS INCREASED IN THE 140'S AT THE START OF SHIFT, DESPITE DAYSHIFT GVING PRN LOPRESSOR. HOSPITALIST PRIMO CALLED AFTER THIS NURSE ALSO GAVE PRN MEDICATIONS WITH NO RESULTS. SAID TO TRY GIVING MORE METOPROLO ORALLY TO SEE IF RATE DECRASED, NO EFFECTS. PT GIVEN ANOTHER LOPRESSOR PUSH WITH NO EFFECT. HOSPITALIST PEPE CONSULTED AND REVEIWED CHART AND SAID TO TRY CARDIZEM PUSH. PT RESPONDED INSTANTLY AND RATE IS NOW IN THE 100'S. WILL CONTINUE TO MONITOR. VITAL SIGNS STABLE T/O EVENTS. NO COMPLAINTS FROM PT.
[2021-07-05 04:14] LABS: BASOPHILS ABSOLUTE AUTO 0.07 K/mm3 (0.00-0.23); BASOPHILS PERCENT AUTO 1 % (0-2); EOSINOPHILS ABSOLUTE AUTO 0.13 K/mm3 (0.00-0.68); EOSINOPHILS PERCENT AUTO 1 % (0-6); Hematocrit 38.2 % (37.0-53.0); Hemoglobin 11.9 g/dL (13.5-17.5); IMMATURE GRAN ABSOLUTE AUTO 0.04 K/mm3 (0.00-0.10); IMMATURE GRAN PERCENT AUTO 0 % (0-1); LYMPHOCYTES PERCENT AUTO 11 % (21-46); MONOCYTES ABSOLUTE AUTO 0.76 K/mm3 (0.16-1.47); MONOCYTES PERCENT AUTO 8 % (4-13); Mean Corpuscular HGB 26.8 pg (26.0-34.0); Mean Corpuscular HGB Conc 31.2 g/dL (31.5-36.5); Mean Corpuscular Volume 86 fL (80-100); Mean Platelet Volume 9.2 fL (9.1-12.4); NEUTROPHILS ABSOLUTE AUTO 7.79 K/mm3 (1.96-9.15); NEUTROPHILS PERCENT AUTO 79 % (41-73); Platelet Count 602 K/mm3 (150-400); RDW Coefficient Variation 17.6 % (11.7-14.2); RDW Standard Deviation 55.3 fL (35.1-46.3); Red Blood Cell Count 4.44 M/mm3 (4.30-5.90); White Blood Cell Count 9.89 K/mm3 (4.00-11.30)
[2021-07-05 04:37] LABS: Albumin, Blood 2.5 g/dL (3.4-5.0); Albumin/Globulin Ratio 0.5 (0.8-1.8); Bilirubin, Total 0.8 mg/dL (0.1-1.0); Bun/Creatinine Ratio 21.3 (12.0-20.0); Calcium, Blood 8.5 mg/dL (8.5-10.1); Creatinine, Blood 1.5 mg/dL (0.60-1.20); Globulin, Blood 4.8 g/dL (2.2-4.0); Magnesium, Blood 1.8 mg/dL (1.6-2.4); Total Protein, Blood 7.3 g/dL (6.4-8.2); Troponin I 0.456 ng/mL (0.000-0.040)
--- NOTE | 2021-07-05 06:15 | NUR ---
SHIFT SUMMARY ASSUMED CARE OF PT AT 1900. PT IS A/OX4. HEART SOUNDS TACHY. PT RESPONDED WELL TO CARDIZEM PUSH BUT NEEDED TO BE STARTED ON DRIP DUE TO INCREASING HR 1HR AFTER PUSH. AT AROUND 0400 PT RATE IS CONTROLED IN THE 90'S AT 5MG/HR. PT WAS A SBA TO BATHROOM. HARRIS DRAINING CLEAR YELLOW URINE. PT IS UPSET ABOUT BEING HERE AND WANTS TO GO HOME. CALL LIGHT IN REACH, BED IN LOWEST POSITION.
--- NOTE | 2021-07-05 18:38 | NUR ---
SHIFT SUMMARY PT A&O X4. VSS. SPO2 > 92% ON RA. MONITOR SHOWING AFLUTTER, HR 90's-130's W/ CARDIZEM GTT INFUSING @ 5 MG/HR MAJORITY OF DAY. PT THEN SUSTAINING HR 70's-90's W/ MD ISTRATE W/ NEW ORDER FOR PO METOPROLOL TARTATE X1 GIVEN, THEN TO CONTINUE W/ ALREADY SCHEDULED METOPROLOL PER EMAR & LEAVE CARDIZEM GTT ON HOLD IF PT HR TOLERATING. PT HR CURRENTLY AFLUTTER, 80's-90's. PT DIURESING PER ORDERS, HARRIS CATH PATENT & DRAINING. NO OTHER EVENTS.
[2021-07-06 04:08] LABS: BASOPHILS ABSOLUTE AUTO 0.07 K/mm3 (0.00-0.23); BASOPHILS PERCENT AUTO 1 % (0-2); EOSINOPHILS ABSOLUTE AUTO 0.18 K/mm3 (0.00-0.68); EOSINOPHILS PERCENT AUTO 2 % (0-6); Hematocrit 38.7 % (37.0-53.0); Hemoglobin 12.1 g/dL (13.5-17.5); IMMATURE GRAN PERCENT AUTO 2 % (0-1); LYMPHOCYTES ABSOLUTE AUTO 1.13 K/mm3 (0.84-5.20); LYMPHOCYTES PERCENT AUTO 9 % (21-46); MONOCYTES ABSOLUTE AUTO 0.82 K/mm3 (0.16-1.47); MONOCYTES PERCENT AUTO 7 % (4-13); Mean Corpuscular HGB 27.2 pg (26.0-34.0); Mean Corpuscular HGB Conc 31.3 g/dL (31.5-36.5); Mean Corpuscular Volume 87 fL (80-100); Mean Platelet Volume 8.9 fL (9.1-12.4); NEUTROPHILS PERCENT AUTO 80 % (41-73); Platelet Count 650 K/mm3 (150-400); RDW Coefficient Variation 17.5 % (11.7-14.2); RDW Standard Deviation 56.4 fL (35.1-46.3); Red Blood Cell Count 4.45 M/mm3 (4.30-5.90)
[2021-07-06 04:41] LABS: Albumin, Blood 2.6 g/dL (3.4-5.0); Albumin/Globulin Ratio 0.5 (0.8-1.8); Bilirubin, Total 0.8 mg/dL (0.1-1.0); Bun/Creatinine Ratio 21.2 (12.0-20.0); Calcium, Blood 8.5 mg/dL (8.5-10.1); Creatinine, Blood 1.51 mg/dL (0.60-1.20); Globulin, Blood 4.9 g/dL (2.2-4.0); Magnesium, Blood 1.8 mg/dL (1.6-2.4); Phosphorus, Blood 2.8 mg/dL (2.5-4.9); Potassium, Blood 4.1 mmol/L (3.5-5.5); Thyroid Stimulating Hormone 4.08 uIU/mL (0.360-4.800); Total Protein, Blood 7.5 g/dL (6.4-8.2)
--- NOTE | 2021-07-06 06:06 | NUR ---
SHIFT SUMMARY ASSUMED CARE OF PT AT 1900. PT IS A/OX4. PT HAD BEEN IRRITATED T/O THE SHIFT. PT WAS UPSET ABOUT NOT TAKING A SHOWER AND BEING IN THE HOSPITAL FOR TOO LONG. WHEN OFFERED TO GIVE PT SHOWER, PT DECLINED STATING " ILL BEING GOING HOME IN THE MORNING. THIS AM AT 0500 PT REQUESTED TO USE THE BATHROOM TO POOP AND THEN TAKE A SHOWER BUT PT IS NOT ON A DRIP AND HR IS ELEVATED IN THE 130S. THIS UPSET THE PT AND HE TOLD THE CARD READER THAT HE WILL JUST LEAVE TODAY AND SHOWER AT HOME. WHEN THIS NURSE WENT TO TALK ABOUT THIS EVENT, HE SAID THAT HE WAS JUST READY TO GO HOME AND SNACKS WOULD MAKE HIM FEEL BETTER. PT HAD SNACKS T/O THE NIGHT. PT RATE INCREASED TO THE 140S GRADUALLY FROM THE START OF SHIFT. HOSPITALIST MILES WAS CONSULTED ABOUT 0000 ABOUT OTHER OPTIONS BECAUSE LOPRESSOR PUSHES ARE NOT WORKING. HOSPITALIST REVEIWED CHART AND THOUGHT STARTING AN AMIODERONE DTT WAS THE BEST OPTION SO PT COULD STILL GO HOME TODAY WITH ORAL AMIO IF IT HELPED. PT RATE REMAINED BETWEEN 120-130 T/O THE NIGHT. CALL LIGHT IN REACH, BED IN LOWEST POSITION.
[2021-07-06 12:01] LABS: Anti-Xa UFH, PHA Monitoring <0.10 IU/mL; International Normalized Ratio 1.26
--- NOTE | 2021-07-06 17:46 | NUR ---
SHIFT SUMMARY: PT A&Ox4, MAINTAINING O2 SATS >93% ON RA, DENIES SOB OR CHEST PAIN/PRESSURE. TELEMETRY CONTINUES TO SHOW AFLUTTER W/HR 120-130s, AMIODARONE INFUSING PER ORDERS, PT MEDICATED PER ORDERS INCLUDING ONE TIME DOSE METOPROLOL TARTRATE ORDERED BY DR MEI, NEW INFUSION OF HEPARIN INITIATED PER ORDERS. PER DR MEI, PT TO BE CLOSELY MONITORED FOR S/S OF GI BLEED GIVEN HIS HX, PT INFORMED OF PLAN AND V/U. DIURESIS CONTINUES PER ORDER, HARRIS CATHETER PATENT AND DRAINING TO GRAVITY, SBA TO RESTROOM. AT THIS TIME, PT RESTING QUIETLY IN ROOM WITH TV ON AND CALL LIGHT W/IN REACH. WILL CONTINUE TO MONITOR AND TREAT ACCORDINGLY UNTIL CHANGE OF SHIFT.
--- NOTE | 2021-07-06 19:30 | NUR ---
IV INFILTRATION W/AMIO GTT DURING ASSESSMENT, PT HAVING REDNESS AND TENDERNESS AROUND L IV SITE. IV HAD AMIO GTT RUNNING. IV REMOVED, PHARMACY NOTIFIED. ORDERED TO APPLY ICE. IF PT CONT TO HAVE IRRITATION INSTRUCTED TO OBTAIN ORDER FOR HYDROCORTISONE CREAM. ICE APPLIED. WILL CONT TO MONITOR.
--- NOTE | 2021-07-06 23:16 | NUR ---
UPDATE PHYSICIAN UPDATED REGARDING PT'S COMPLAINT OF COUGH. ORDERS PROVIDED, SEE EMAR.
--- NOTE | 2021-07-07 01:20 | NUR ---
AMIO GTT OFF INFUSION RAN FOR A TOTAL OF 24 HRS PER PHYSICIAN ORDER.
[2021-07-07 03:42] LABS: BASOPHILS ABSOLUTE AUTO 0.07 K/mm3 (0.00-0.23); BASOPHILS PERCENT AUTO 1 % (0-2); EOSINOPHILS ABSOLUTE AUTO 0.11 K/mm3 (0.00-0.68); EOSINOPHILS PERCENT AUTO 1 % (0-6); Hematocrit 37.6 % (37.0-53.0); Hemoglobin 12.2 g/dL (13.5-17.5); IMMATURE GRAN ABSOLUTE AUTO 0.05 K/mm3 (0.00-0.10); IMMATURE GRAN PERCENT AUTO 1 % (0-1); LYMPHOCYTES ABSOLUTE AUTO 1.45 K/mm3 (0.84-5.20); LYMPHOCYTES PERCENT AUTO 14 % (21-46); MONOCYTES ABSOLUTE AUTO 1.07 K/mm3 (0.16-1.47); MONOCYTES PERCENT AUTO 11 % (4-13); Mean Corpuscular HGB 27.4 pg (26.0-34.0); Mean Corpuscular HGB Conc 32.4 g/dL (31.5-36.5); Mean Corpuscular Volume 84 fL (80-100); Mean Platelet Volume 8.6 fL (9.1-12.4); NEUTROPHILS ABSOLUTE AUTO 7.45 K/mm3 (1.96-9.15); NEUTROPHILS PERCENT AUTO 73 % (41-73); Platelet Count 602 K/mm3 (150-400); RDW Coefficient Variation 17.4 % (11.7-14.2); RDW Standard Deviation 53.6 fL (35.1-46.3); Red Blood Cell Count 4.46 M/mm3 (4.30-5.90)
[2021-07-07 03:59] LABS: Albumin, Blood 2.5 g/dL (3.4-5.0); Albumin/Globulin Ratio 0.5 (0.8-1.8); Bilirubin, Total 0.6 mg/dL (0.1-1.0); Bun/Creatinine Ratio 20.9 (12.0-20.0); Calcium, Blood 8.5 mg/dL (8.5-10.1); Creatinine, Blood 1.53 mg/dL (0.60-1.20); Globulin, Blood 4.9 g/dL (2.2-4.0); Magnesium, Blood 1.8 mg/dL (1.6-2.4); Potassium, Blood 4.3 mmol/L (3.5-5.5); Total Protein, Blood 7.4 g/dL (6.4-8.2)
--- NOTE | 2021-07-07 05:49 | NUR ---
SHIFT SUMMARY PT ALERT AND ORIENTED X 4. HR TACHY AT TIMES 120-130. AFLUTTER. BP STABLE. NO CP OR PRESSURE. IV INFILTRATED IN LUE WITH AMIO GTT, PHARMACY CONSULTED. ICE APPLIED. REDNESS ON ARM HAS MINIMIZED. PT STATES IT "DOESNT HURT ANYMORE." AMIO GTT STOPPED DURING SHIFT, SEE EMAR AND NOTES. PT ABLE TO TURN SELF IN BED. NO CP OR PRESSURE REPORTED. OXYGEN SATURATION MAINTAINED ABOVE 92% ON RA. HARRIS TO GRAVITY DRAIN. HEPARIN GTT, SEE EMAR. PHYSICIAN NOTIFIED ABOUT PT'S COUGH, MEDICATED PER PHYSICIAN ORDER. WILL CONT TO MONITOR UNTIL REPORT GIVEN TO DAYSHIFT RN.
--- NOTE | 2021-07-07 18:36 | NUR ---
SHIFT SUMMARY: PT CONTINUES A&Ox4, COOPERATIVE WITH CARE. AFLUTTER WITH RATE IN 120s-130s CONTINUES ON MONITOR. PT REPORTS NO CHEST PAIN AND MINIMAL SOB WHEN TRANSFERING TO/FROM BED/CHAIR. DR MEI UPDATED ON PT STATUS T/OUT DAY, CARDIOLOGY CONSULT PLACED, DR FRANKLIN TO/FROM BEDSIDE FOR EVAL, MEDICATION CHANGES WERE MADE, SEE EMAR. LUE CONTINUES RED, PT REPORTS DISCOMFORT WHEN TOUCHED, ICE APPLIED T/OUT AFTERNOON, PHARMACY CONSULTED AND STATED TO ICE AREA AND TO REQUEST ORDER FOR HYDROCORTISONE CREAM IF PAIN WORSENS, PT TOLERATING WELL AT THIS TIME. PT ABLE TO MAINTAIN O2 SATS >93% ON RA, INDWELLING HARRIS CONTINUES DRAINING TO GRAVITY. AT THIS TIME, PT RESTING IN BED WITH TV ON AND CALL LIGHT WITHIN REACH. WILL CONTINUE TO MONITOR AND TREAT ACCORDINGLY UNTIL CHANGE OF SHIFT.
[2021-07-08 04:27] LABS: BASOPHILS ABSOLUTE AUTO 0.08 K/mm3 (0.00-0.23); BASOPHILS PERCENT AUTO 1 % (0-2); EOSINOPHILS PERCENT AUTO 1 % (0-6); Hematocrit 42.4 % (37.0-53.0); Hemoglobin 13.2 g/dL (13.5-17.5); IMMATURE GRAN ABSOLUTE AUTO 0.08 K/mm3 (0.00-0.10); IMMATURE GRAN PERCENT AUTO 1 % (0-1); LYMPHOCYTES ABSOLUTE AUTO 1.58 K/mm3 (0.84-5.20); LYMPHOCYTES PERCENT AUTO 16 % (21-46); MONOCYTES PERCENT AUTO 12 % (4-13); Mean Corpuscular HGB 26.9 pg (26.0-34.0); Mean Corpuscular HGB Conc 31.1 g/dL (31.5-36.5); Mean Corpuscular Volume 87 fL (80-100); Mean Platelet Volume 9.6 fL (9.1-12.4); NEUTROPHILS ABSOLUTE AUTO 6.84 K/mm3 (1.96-9.15); NEUTROPHILS PERCENT AUTO 69 % (41-73); Platelet Count 594 K/mm3 (150-400); RDW Coefficient Variation 17.9 % (11.7-14.2); RDW Standard Deviation 55.7 fL (35.1-46.3); White Blood Cell Count 9.88 K/mm3 (4.00-11.30)
[2021-07-08 05:04] LABS: Albumin, Blood 2.9 g/dL (3.4-5.0); Albumin/Globulin Ratio 0.6 (0.8-1.8); Bilirubin, Total 0.8 mg/dL (0.1-1.0); Bun/Creatinine Ratio 20.9 (12.0-20.0); Creatinine, Blood 1.72 mg/dL (0.60-1.20); Globulin, Blood 4.7 g/dL (2.2-4.0); Magnesium, Blood 1.9 mg/dL (1.6-2.4); Potassium, Blood 5.4 mmol/L (3.5-5.5); Total Protein, Blood 7.6 g/dL (6.4-8.2)
--- NOTE | 2021-07-08 06:21 | NUR ---
SHIFT SUMMARY PT ALERT AND ORIENTED X 4. HR TACHY, 110'S AT BEGINNING OF SHIFT TO 120'S-130 BY END OF SHIFT. BP STABLE. MAP REMAINED ABOVE 65. OXYGEN SATURATION MAINTAINED ABOVE 92% ON RA. PT ABLE TO TURN SELF IN BED. PT REFUSING TO WEAR SCD'S D/T IRRITATION IN LEGS. NO CP OR PRESSURE. HARRIS TO GRAVITY DRAIN. WILL CONT TO MONITOR UNTIL REPORT GIVEN TO MONROE ORTIZ.
--- NOTE | 2021-07-08 10:32 | NUR ---
Tele: sadie maily 100-110s this AM, but around 1000 pt stated sustaining 120s.
--- NOTE | 2021-07-08 11:49 | NUR ---
Pt reporting that left arm where IV infiltrated amiodarone yesterday is really sore today. I notified MD and Dr. Sanz wanted me to call pharmacy to see if there are any suggested meds for ammio infiltration. They suggested hyaluronidase subcutaneous. I notifed the MD and she will take a look at site in person and then possibly order dose.
--- NOTE | 2021-07-08 12:32 | NUR ---
Notified that pt is not on anticoag. Pt had recent GI bleed and anticoags were d/c. encouraged SCDs, pt had been refusing SCDs. I educated pt on importance of the SCDs and pt agreed to wear them. Placed SCDs on Bilateral lower ext.
--- NOTE | 2021-07-08 13:49 | NUR ---
Mirta d/c @ 1330. Hyaluronidase was given in area of infiltrated amiodarone. Amiodarone infiltrated yesterday and pt expressed more pain and swelling, ordered hyaluronidase. Several subcutaneous injections given in left arm where infiltration occured.
--- NOTE | 2021-07-08 17:47 | NUR ---
Shift note: Pt is A&O, pleasant with cares. VSS on RA, BP on the softer side. PO metoprolol and amio given per orders, digoxin was ordered by cardio this AM, but then notifed nursing staff to not give due to high potassium. Pt complained of increased pain in left arm where the amio had infiltrated yesterday. Ice applied with little help, MD notified. Hyaluronidase subcutaneously given per orders in area of infiltrated amio. Pt has nonproductive cough, prn lozenges and phenergan w/ codiene given. Tele: aflutter 100-120s, mainly 110-120s throughout day. Encouraged SCDs, pt tolerated for maybe an hour. Insintive spirameter given to pt and tought how to use, encouraged to do 10 reps per hour while awake. Kirby removed today and pt has voided several times since. Spoke with and still no anticoag at this time due to hx of GI bleed recently. said to keep encouraging SCDs, pt only tolerated for 1 hr this evening and then refused to put them back on.
--- NOTE | 2021-07-09 06:17 | NUR ---
SHIFT SUMMARY PT ALERT AND ORIENTED X 4. HR STABLE, 90'S-120'S. BP STABLE. MAP ABOVE 65. OXYGEN SATURATION MAINTAINED ABOVE 92% ON RA. NO CP OR PRESSURE REPORTED. PT ABLE TO TURN SELF IN BED. PT SLEPT DURING SHIFT. WILL CONT TO MONITOR UNTIL REPORT GIVEN TO DAYSHIFT RN.
--- NOTE | 2021-07-09 07:17 | NUR ---
UPDATE AT END OF SHIFT PT REPORTED TO FEEL SHORT OF BREATH. PT'S OXYGEN SATURATION AT 100% ON RA. PT REPORTS TO FEEL THIS WAY WHEN HE NEEDS LASIX AND IT IS NOT A NEW FEELING. DAYSUMER RN NOTIFIED. PT STATES HE FEELS COMFORTABLE AT THIS TIME.
--- NOTE | 2021-07-09 14:13 | NUR ---
Pt reporting SOB at rest, sudden onset. Said this has been happening a few times over the past 24hrs. Will feel SOB and get anxiet/ panic feeling. MD notified and will round on pt. All VSS on RA. Oxygen sat 94-98%.
[2021-07-09 14:46] LABS: BASOPHILS ABSOLUTE AUTO 0.06 K/mm3 (0.00-0.23); BASOPHILS PERCENT AUTO 1 % (0-2); EOSINOPHILS ABSOLUTE AUTO 0.08 K/mm3 (0.00-0.68); EOSINOPHILS PERCENT AUTO 1 % (0-6); Hematocrit 41.4 % (37.0-53.0); Hemoglobin 13.1 g/dL (13.5-17.5); IMMATURE GRAN ABSOLUTE AUTO 0.07 K/mm3 (0.00-0.10); IMMATURE GRAN PERCENT AUTO 1 % (0-1); LYMPHOCYTES ABSOLUTE AUTO 1.53 K/mm3 (0.84-5.20); LYMPHOCYTES PERCENT AUTO 14 % (21-46); MONOCYTES ABSOLUTE AUTO 1.26 K/mm3 (0.16-1.47); MONOCYTES PERCENT AUTO 11 % (4-13); Mean Corpuscular HGB 26.8 pg (26.0-34.0); Mean Corpuscular HGB Conc 31.6 g/dL (31.5-36.5); Mean Corpuscular Volume 85 fL (80-100); Mean Platelet Volume 8.8 fL (9.1-12.4); NEUTROPHILS PERCENT AUTO 73 % (41-73); Platelet Count 635 K/mm3 (150-400); RDW Coefficient Variation 17.5 % (11.7-14.2); RDW Standard Deviation 54.4 fL (35.1-46.3); Red Blood Cell Count 4.88 M/mm3 (4.30-5.90)
[2021-07-09 15:03] LABS: Creatinine, Blood 2.08 mg/dL (0.60-1.20); Potassium, Blood 5.2 mmol/L (3.5-5.5)
--- NOTE | 2021-07-09 15:44 | NUR ---
Pt Ddimer was elevated, Dr. Sanz updated, CTA ordered STAT. VSS on RA, BP on the softer side, but MAP is 80
--- NOTE | 2021-07-09 16:47 | NUR ---
LVM FOR DR. RIVERO REGARDING CTA RESULTS. WORSONING PE SEEN ON STUDY. WAITING FOR A CALL BACK TO SEE IF THERE WILL BE NEW ORDERS.
--- NOTE | 2021-07-09 17:06 | NUR ---
Shift note: Pt is A&O, anxious at times. Tele: aflutter 100-110s mainly. VSS on RA. This afternoon pt complained of sudden onset SOB and felt anxious/panic feeling. Pt denied any chest pain. MD Notified and STAT labs, chest xray and d-dimer ordered. Ddimer was elevated, STAT CTA. CTA showed worsening PE, heparin gtt started.
--- NOTE | 2021-07-09 18:41 | NUR ---
Decreased urine output this evening, bladder scan done, 0-27ml in bladder.
[2021-07-09 22:18] LABS: Hematocrit 39.7 % (37.0-53.0)
--- NOTE | 2021-07-10 05:34 | NUR ---
SHIFT SUMMARY PT RESTED WELL THROUGH THE NIGHT. ALERT AND ORIENTED, ABLE TO MAKE NEEDS KNOWN. COOPERATIVE WITH PLAN OF CARE. SATS >95% ON ROOM AIR. TELE READS SINUS TACH 104. NO C/O CHEST PAIN. REMAINS ON HEP GTT FOR PE'S. VOIDING TO URINAL, MINIMAL UOP. NO BM. VSS. CALL LIGHT WITHIN REACH, BED IN LOWEST POSITION. WILL CONTINUE TO MONITOR.
[2021-07-10 08:09] LABS: BASOPHILS ABSOLUTE AUTO 0.07 K/mm3 (0.00-0.23); BASOPHILS PERCENT AUTO 1 % (0-2); EOSINOPHILS ABSOLUTE AUTO 0.03 K/mm3 (0.00-0.68); EOSINOPHILS PERCENT AUTO 0 % (0-6); Hematocrit 38.8 % (37.0-53.0); Hemoglobin 12.4 g/dL (13.5-17.5); IMMATURE GRAN ABSOLUTE AUTO 0.05 K/mm3 (0.00-0.10); IMMATURE GRAN PERCENT AUTO 1 % (0-1); LYMPHOCYTES ABSOLUTE AUTO 1.91 K/mm3 (0.84-5.20); LYMPHOCYTES PERCENT AUTO 19 % (21-46); MONOCYTES ABSOLUTE AUTO 0.89 K/mm3 (0.16-1.47); MONOCYTES PERCENT AUTO 9 % (4-13); Mean Corpuscular HGB 26.6 pg (26.0-34.0); Mean Corpuscular Volume 83 fL (80-100); Mean Platelet Volume 8.8 fL (9.1-12.4); NEUTROPHILS PERCENT AUTO 70 % (41-73); Platelet Count 587 K/mm3 (150-400); RDW Coefficient Variation 17.2 % (11.7-14.2); RDW Standard Deviation 52.8 fL (35.1-46.3); Red Blood Cell Count 4.66 M/mm3 (4.30-5.90); White Blood Cell Count 9.85 K/mm3 (4.00-11.30)
[2021-07-10 08:38] LABS: Albumin, Blood 2.6 g/dL (3.4-5.0); Albumin/Globulin Ratio 0.5 (0.8-1.8); Bilirubin, Total 0.7 mg/dL (0.1-1.0); Bun/Creatinine Ratio 30.9 (12.0-20.0); Creatinine, Blood 2.04 mg/dL (0.60-1.20); Globulin, Blood 5.4 g/dL (2.2-4.0); Potassium, Blood 4.2 mmol/L (3.5-5.5)
--- NOTE | 2021-07-10 14:34 | NUR ---
Pt is sititng up in bed and alert. 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 He goes on to explain that the on going batlle to manage his heart is an annoyance and inconveient because he is the caregiver for his 92 y/o mother. I provide therapeutic listening, companionship and gentle counseling case manager. Pt responds well and shows signs of an elevated mood. Pt voices appreciation for the visit. I will continue to remain available to patient and family.
--- NOTE | 2021-07-10 17:05 | NUR ---
Shift note: Pt is A&O, pleasant with cares. VSS on RA. Tele: aflutter mainly 100s today, briefly dropped into 90s. Heparin gtt is running at 17units/kg/hr. added additional sleep aid for night time.
[2021-07-11 05:38] LABS: Hematocrit 37.8 % (37.0-53.0); Hemoglobin 12.3 g/dL (13.5-17.5)
[2021-07-11 06:00] LABS: Albumin, Blood 2.7 g/dL (3.4-5.0); Anion Gap 10 mmol/L (6-16); Blood Urea Nitrogen 69 mg/dL (8-24); Bun/Creatinine Ratio 30.5 (12.0-20.0); CO2, Blood 26 mmol/L (21-32); Calcium, Blood 9.3 mg/dL (8.5-10.1); Chloride, Blood 91 mmol/L (98-108); Creatinine, Blood 2.26 mg/dL (0.60-1.20); Glomerular Filtration Rate 30 (60-); Glucose, Blood 162 mg/dL (70-99); Potassium, Blood 4.6 mmol/L (3.5-5.5); Sodium, Blood 127 mmol/L (136-145)
--- NOTE | 2021-07-11 06:21 | NUR ---
SHIFT SUMMARY PT RESTED WELL THROUGH THE NIGHT. ALERT AND ORIENTED, ABLE TO MAKE NEEDS KNWON. COOPERATIVE WITH PLAN OF CARE. SATS >95% ON ROOM AIR. TELE READS AFLUTTER 100'S. VOIDING TO URINAL - MINIMAL OUTPUT DESPITE IV LASIX GIVEN. NO C/O PAIN. VSS. CALL LIGHT WITHIN REACH, BED IN LOWEST POSITION. WILL CONTINUE TO MONITOR.
--- NOTE | 2021-07-11 07:45 | NUR ---
CARE ASSUMPTION PATIENT IS ALERT AND ORIENTATED X4. NEURO IS INTACT, PERRLA, NO NUMBNESS OR TINGLING. VSS. SPO2 >90% ON RA. TELE AFLUTTER 90S. PATIENT REPORTS NO CHEST PAIN/PRESSURE, HEADACHE, OR SHORTNESS OF BREATH. MD GIBBONS IN TO SEE PATIENT THIS AM AND DISCOUNTINED LASIX DUE TO PATIENT LAB VALUES. THIS RN WILL CONTINUE TO MONITOR AND ASSESS PATIENT INPUT AND OUTPUT AND IF NEEDED BLADDER SCAN IF PATIENT HAS MINIMAL OUTPUT. LUNG SOUNDS CLEAR/DIM. THIS RN FOUND LEFT PEDAL PULSE VIA DOPPLER, AND BOTH PEDAL PULSES ARE FAINT. STRONG RADIAL PULSES. SEE SHIFT ASSESSMENT FOR FULL DETAILS. HEPERAIN INFUSING AT 16U/KG/HR, AND VERFIED NEW DOSE WITH KAT ORTIZ. PATIENT HAS NO QUESTIONS OR CONCERNS AT THIS TIME AND IS AWARE OF THE PLAN OF CARE. CALL LIGHT WITHIN REACH AND WILL CONTINUE TO MONITOR AND PROVIDE CARE.
--- NOTE | 2021-07-11 15:40 | NUR ---
REPORT TO MEDICAL FLOOR RN THIS RN GAVE REPORT TO RN. ALL PATIENT BELONGINGS GATHERED AND TAKEN UP WITH PATIENT. PATIENT VSS. NO ACUTE CHANGES DURING MY TIME WITH THE PATIENT. PATIENT BROUGHT TO NEW ROOM BY PATIENT BOX OFFICE CLERK VIA WHEEL CHAIR WITH HEPARIN DRIP INFUSING AT 16U/KG/HR.
--- NOTE | 2021-07-11 16:18 | NUR ---
SHIFT SUMMARY PATIENT TRANSFERRED FROM PCU AT 1555. PATIENT SETTLED INTO ROOM. PATIENT DENIES PAIN, NAUSEA, SHORTNESS OF BREATH. PATIENT IS INDEPENDENT IN ROOM. PATIENT IS ON A HEPARIN DRIP AT 16 U/KG/HR. 2 RN NAEL. NEW BAG HUNG. PATIENT IS EATING AND DRINKING WELL. TELE CURRENTLY SR AT 97. PATIENT A&O X4. PATIENT IS PLEASANT AND COOPERATIVE WITH CARE.
--- NOTE | 2021-07-12 04:19 | NUR ---
SHIFT SUMMARY A/O, ABLE TO MAKE NEEDS KNOWN. COOPERATIVE WITH CARE. CALLS AND ANSWERS QUESTIONS APPROPRIATELY. AMBULATES INDEPENDENTLY IN ROOM; REQUIRES ASSISTANCE /c IV POLE. NO ACUTE CHANGES NOTED OVERNIGHT. APPEARED TO REST MUCH OF THE NIGHT. BED REMAINED IN LOWEST POSITION. CALL LIGHT AND BELONGINGS WITHIN REACH. REPORT TO ONCOMING RN.
[2021-07-12 04:48] LABS: BASOPHILS ABSOLUTE AUTO 0.05 K/mm3 (0.00-0.23); BASOPHILS PERCENT AUTO 1 % (0-2); EOSINOPHILS ABSOLUTE AUTO 0.02 K/mm3 (0.00-0.68); EOSINOPHILS PERCENT AUTO 0 % (0-6); Hematocrit 38.8 % (37.0-53.0); Hemoglobin 12.2 g/dL (13.5-17.5); IMMATURE GRAN ABSOLUTE AUTO 0.05 K/mm3 (0.00-0.10); IMMATURE GRAN PERCENT AUTO 1 % (0-1); LYMPHOCYTES ABSOLUTE AUTO 1.64 K/mm3 (0.84-5.20); LYMPHOCYTES PERCENT AUTO 17 % (21-46); MONOCYTES ABSOLUTE AUTO 0.86 K/mm3 (0.16-1.47); MONOCYTES PERCENT AUTO 9 % (4-13); Mean Corpuscular HGB 26.3 pg (26.0-34.0); Mean Corpuscular HGB Conc 31.4 g/dL (31.5-36.5); Mean Corpuscular Volume 84 fL (80-100); Mean Platelet Volume 9.4 fL (9.1-12.4); NEUTROPHILS ABSOLUTE AUTO 7.13 K/mm3 (1.96-9.15); NEUTROPHILS PERCENT AUTO 73 % (41-73); Platelet Count 574 K/mm3 (150-400); RDW Coefficient Variation 17.5 % (11.7-14.2); RDW Standard Deviation 53.5 fL (35.1-46.3); Red Blood Cell Count 4.64 M/mm3 (4.30-5.90); White Blood Cell Count 9.75 K/mm3 (4.00-11.30)
[2021-07-12 05:16] LABS: Albumin, Blood 2.8 g/dL (3.4-5.0); Anion Gap 10 mmol/L (6-16); Blood Urea Nitrogen 69 mg/dL (8-24); Bun/Creatinine Ratio 34.2 (12.0-20.0); CO2, Blood 26 mmol/L (21-32); Calcium, Blood 9.2 mg/dL (8.5-10.1); Chloride, Blood 92 mmol/L (98-108); Creatinine, Blood 2.02 mg/dL (0.60-1.20); Glomerular Filtration Rate 34 (60-); Glucose, Blood 142 mg/dL (70-99); Phosphorus, Blood 4.1 mg/dL (2.5-4.9); Potassium, Blood 5.3 mmol/L (3.5-5.5); Sodium, Blood 128 mmol/L (136-145)
--- NOTE | 2021-07-12 16:59 | NUR ---
SHIFT SUMMARY PT IS A&O, PLEASANT AND CO-OP. SLEEPING MOST OF THE DAY, OFF AND ON, UNTIL THIS AFTERNOON. WOKE FOR CARE NEEDED. HEPARIN DRIP INFUSING PER PHARMACY REMAINING UNCHANGED TO PRESENT PER LAST ORDERS. IVF BOLUS GIVEN AND COMPLETE. AM METOPROLOL HELD PER DR CHOWDARY FOR AM VS; SEE CHART. PT IS INDEPENDENT IN , MOSTLY USING URINAL AT BS D/T IV LINES. EATING AND DRINKING WELL. NO C/O. CALL LT IN REACH.
[2021-07-13 04:48] LABS: Hematocrit 41.4 % (37.0-53.0); Hemoglobin 13.1 g/dL (13.5-17.5); Mean Corpuscular HGB 26.7 pg (26.0-34.0); Mean Corpuscular HGB Conc 31.6 g/dL (31.5-36.5); Mean Corpuscular Volume 85 fL (80-100); Mean Platelet Volume 9.8 fL (9.1-12.4); Platelet Count 418 K/mm3 (150-400); RDW Coefficient Variation 18.4 % (11.7-14.2); RDW Standard Deviation 54.4 fL (35.1-46.3); White Blood Cell Count 9.45 K/mm3 (4.00-11.30)
--- NOTE | 2021-07-13 04:52 | NUR ---
SHIFT SUMMARY A/O, ABLE TO MAKE NEEDS KNOWN. COOPERATIVE WITH CARE. CALLS AND ANSWERS QUESTIONS APPROPRIATELY. NO C/O PAIN/DISCOMFORT. MEDICATED PER PATIENT REQUEST FOR SLEEP. NO ACUTE CHANGES NOTED OVERNIGHT. APPEARED TO REST OFF AND ON. BED REMAINS IN LOWEST POSITION. CALL LIGHT AND BELONGINGS WITHIN REACH. REPORT TO ONCOMING RN.
[2021-07-13 07:12] LABS: Albumin, Blood 2.4 g/dL (3.4-5.0); Anion Gap 11 mmol/L (6-16); Blood Urea Nitrogen 59 mg/dL (8-24); Bun/Creatinine Ratio 35.3 (12.0-20.0); CO2, Blood 22 mmol/L (21-32); Calcium, Blood 8.7 mg/dL (8.5-10.1); Chloride, Blood 99 mmol/L (98-108); Creatinine, Blood 1.67 mg/dL (0.60-1.20); Glomerular Filtration Rate 43 (60-); Glucose, Blood 189 mg/dL (70-99); Phosphorus, Blood 3.3 mg/dL (2.5-4.9); Potassium, Blood 4.5 mmol/L (3.5-5.5); Sodium, Blood 132 mmol/L (136-145)
[2021-07-13] MEDS ORDERED: PANT40 PO (13:20)
[2021-07-13] MEDS ORDERED: METO50ER PO (13:23)
[2021-07-13] MEDS ORDERED: PACERONE100 M1 PO (13:23)
[2021-07-13] MEDS ORDERED: MAGNESIUM OXID400 M2 PO (13:24)
[2021-07-13] MEDS ORDERED: ELIQUIS5 M2 PO (13:25)
--- NOTE | 2021-07-13 13:54 | NUR ---
PT MORE AWAKE THIS AM AT START OF SHIFT THAN YESTERDAY. HEPARIN STILL INFUSING PER PHARMACY. PT UP INDEPENDENTLY IN , WANTING TO GO HOME. DR TILLMAN IN TO SEE PT AND DISCUSSED PLAN OF CARE. PT TO D/C TO HOME AND START TAKING ELIQUIS TONIGHT. MEDS FAXED TO [facility] PER PT REQUEST. PT D/C'D HIS OWN IV'S; BRYAN AND RFA, LEAVING HEPARIN INFUSING ON BED. PT WANTING TO GO BEFORE D/C COMPLETE. PER [facility] RN, PT WANTING TO GO USE METH. PT ENCOURAGED TO NOT USE METH ANYMORE. D/C INSTRUCTIONS REVIEWED WITH PT, PT THEN TAKEN DOWN TO WAITING FAMILY FOR RIDE HOME. PT BELONGINGS TAKEN BY PT.
== END 2021-07-13 13:52 | disposition home or self-care (01) | DRG 291 ==
LOC: ER 03:08 → PCU 04:55 → MEDS 07-11 15:50
PROVIDERS: Emergency Medicine; Family Medicine; Internal Medicine; ADMIT Internal Medicine
DX: I13.0 Hypertensive heart and chronic kidney disease with heart failure and stage 1 through stage 4 chronic kidney disease, or unspecified chronic kidney disease (principal); I50.23 Acute on chronic systolic (congestive) heart failure; J96.21 Acute and chronic respiratory failure with hypoxia; N17.9 Acute kidney failure, unspecified; E87.1 Hypo-osmolality and hyponatremia; I48.92 Unspecified atrial flutter; I48.19 Other persistent atrial fibrillation; I42.7 Cardiomyopathy due to drug and external agent; N18.30 Chronic kidney disease, stage 3 unspecified; Z20.822 Contact with and (suspected) exposure to COVID-19; F15.10 Other stimulant abuse, uncomplicated; Z91.14 Patient's other noncompliance with medication regimen; I25.2 Old myocardial infarction; K74.60 Unspecified cirrhosis of liver; Z87.891 Personal history of nicotine dependence; Z79.899 Other long term (current) drug therapy; G47.00 Insomnia, unspecified; Z86.711 Personal history of pulmonary embolism
CPT/HCPCS: 0241U; 36415; 51702; 71045; 71046; 71260; 72193; 76870; 80048; 80053; 80069; 81001; 82947; 83605; 83735; 83880; 84100; 84145; 84443; 84484; 85014; 85018; 85025; 85027; 85379; 85520; 85610; 85651; 86141; 87040; 90686; 93005; 93010; 93308; 96365-59; 96375-59; 96376-59; 99285-25; A9270; G0008; G0480; J0282; J1160; J1644; J1940; J3470; J3475; J7040; J7050; J7060; Q9967

== ENCOUNTER 2021-08-13 22:02 | Inpatient (IN) | payer OTHER ==
[~2021-08-13] VITALS: Ht 190.5 cm; Wt 84.8 kg
[~2021-08-13 22:02] MED LIST changes: +ELIQUIS5 M2 PO; +MAGNESIUM OXID400 M2 PO; +METO50ER PO; +PACERONE100 M1 PO; +PANT40 PO
[2021-08-13 23:15] LABS: BASOPHILS ABSOLUTE AUTO 0.04 K/mm3 (0.00-0.23); BASOPHILS PERCENT AUTO 0 % (0-2); EOSINOPHILS ABSOLUTE AUTO 0.03 K/mm3 (0.00-0.68); EOSINOPHILS PERCENT AUTO 0 % (0-6); Hematocrit 42.1 % (37.0-53.0); Hemoglobin 12.8 g/dL (13.5-17.5); IMMATURE GRAN ABSOLUTE AUTO 0.05 K/mm3 (0.00-0.10); IMMATURE GRAN PERCENT AUTO 1 % (0-1); LYMPHOCYTES ABSOLUTE AUTO 1.64 K/mm3 (0.84-5.20); LYMPHOCYTES PERCENT AUTO 17 % (21-46); MONOCYTES ABSOLUTE AUTO 0.93 K/mm3 (0.16-1.47); MONOCYTES PERCENT AUTO 10 % (4-13); Mean Corpuscular HGB 24.9 pg (26.0-34.0); Mean Corpuscular HGB Conc 30.4 g/dL (31.5-36.5); Mean Corpuscular Volume 82 fL (80-100); NEUTROPHILS ABSOLUTE AUTO 7.15 K/mm3 (1.96-9.15); NEUTROPHILS PERCENT AUTO 73 % (41-73); NRBC ABSOLUTE 0.02 K/mm3 (0.00-0.02); NRBC Auto 0.2 /100 WBC (0.0-0.2); Platelet Count 323 K/mm3 (150-400); RDW Coefficient Variation 19.7 % (11.7-14.2); RDW Standard Deviation 57.1 fL (35.1-46.3); Red Blood Cell Count 5.15 M/mm3 (4.30-5.90); White Blood Cell Count 9.84 K/mm3 (4.00-11.30)
[2021-08-13 23:32] LABS: Bun/Creatinine Ratio 17.2 (12.0-20.0); Calcium, Blood 8.9 mg/dL (8.5-10.1); Creatinine, Blood 1.8 mg/dL (0.60-1.20); Potassium, Blood 3.9 mmol/L (3.5-5.5)
[2021-08-14 00:56] LABS: U Amphetamine Screen Not Detected; U Barbituate Screen Not Detected; U Benzodiazapine Screen Not Detected; U Buprenorphine Screen Not Detected; U Cannabinoids Screen DETECTED; U Cocaine Screen Not Detected; U Methadone Screen Not Detected; U Methamphetamine Screen Not Detected; U Opiates Screen Not Detected; U Oxycodone Screen Not Detected; U Phencyclidine Screen Not Detected; U Propoxyphene Screen Not Detected
[2021-08-14 05:28] LABS: BASOPHILS ABSOLUTE AUTO 0.04 K/mm3 (0.00-0.23); BASOPHILS PERCENT AUTO 0 % (0-2); EOSINOPHILS ABSOLUTE AUTO 0.03 K/mm3 (0.00-0.68); EOSINOPHILS PERCENT AUTO 0 % (0-6); Hematocrit 39.8 % (37.0-53.0); Hemoglobin 12.5 g/dL (13.5-17.5); IMMATURE GRAN ABSOLUTE AUTO 0.03 K/mm3 (0.00-0.10); IMMATURE GRAN PERCENT AUTO 0 % (0-1); LYMPHOCYTES ABSOLUTE AUTO 1.71 K/mm3 (0.84-5.20); LYMPHOCYTES PERCENT AUTO 18 % (21-46); MONOCYTES ABSOLUTE AUTO 0.84 K/mm3 (0.16-1.47); MONOCYTES PERCENT AUTO 9 % (4-13); Mean Corpuscular HGB 25.3 pg (26.0-34.0); Mean Corpuscular HGB Conc 31.4 g/dL (31.5-36.5); Mean Corpuscular Volume 80 fL (80-100); Mean Platelet Volume 10.1 fL (9.1-12.4); NEUTROPHILS ABSOLUTE AUTO 7.02 K/mm3 (1.96-9.15); NEUTROPHILS PERCENT AUTO 73 % (41-73); Platelet Count 275 K/mm3 (150-400); RDW Coefficient Variation 19.5 % (11.7-14.2); RDW Standard Deviation 55.9 fL (35.1-46.3); Red Blood Cell Count 4.95 M/mm3 (4.30-5.90); White Blood Cell Count 9.67 K/mm3 (4.00-11.30)
[2021-08-14 05:55] LABS: Albumin, Blood 2.9 g/dL (3.4-5.0); Albumin/Globulin Ratio 0.7 (0.8-1.8); Bilirubin, Total 1.9 mg/dL (0.1-1.0); Calcium, Blood 8.5 mg/dL (8.5-10.1); Creatinine, Blood 1.71 mg/dL (0.60-1.20); Globulin, Blood 4.2 g/dL (2.2-4.0); Potassium, Blood 3.9 mmol/L (3.5-5.5); Total Protein, Blood 7.1 g/dL (6.4-8.2)
--- NOTE | 2021-08-14 07:27 | NUR ---
SHIFT SUMMARY ASSUMED CARE OF PT AT 0425. BP STABLE. AFEBRILE. ON 2L SATS OVER 97%. HR AFLUTTER 120'S. NO C/O PAIN OR DISCOMFORT. VOIDS INDEPENDENTLY WITH URINAL. SBA FOR TRANSFERS- GAIT UNSTEADY ON WAY TO BED. HEP GTT INFUSING IN R FOREARM. IN BED SLEEPING WITH CALL ALARM AT SIDE. WILL CONTINUE TO MONITOR UNTIL REPORT GIVEN
--- NOTE | 2021-08-14 08:44 | NUR ---
AM NOTE PT ALERT AND ORIENTED X 4. IN REPORT THIS NURSE WAS TOLD THAT PT APPEARED UNSTEADY ON FEET, BED ALARM ON. HEPARIN DRIP GOING PER EMAR ORDERS AT 18UNITS/KG/HR. WILL CONTINUE TO MONITOR
--- NOTE | 2021-08-14 11:58 | NUR ---
CARE NOTE HEPARIN DISOCONTINUED PER ORDERS AT 1155, PHARMACY NOTIFIED
--- NOTE | 2021-08-14 17:48 | NUR ---
SHIFT SUMMARY PT REMAINED ALERT TO SELF, PLACE, AND SITUATION BUT DID NOT KNOW THE DAY/TIME. HE REPORTED THAT HE "HADN'T SLEPT IN WEEKS AND LAST NIGHT WAS THE FIRST GOOD NIGHT SLEEP HE'D HAD." HE WAS LETHARGIC FOR MAJORITY OF SHIFT BUT WOULD WAKE EASILY TO VERBAL STIMULI. SPO2 MAINTAINED 98-100% VIA 1L O2, AT APPROX 1700 O2 WAS REMOVED AND PATIENT SPO2 MAINTAINED AT 96% VIA ROOM AIR. HE DENIED CHEST PAIN/PRESSURE T/O SHIFT BUT REPORTED FEELING SHORT OF BREATH WITH EXERTION AND ALSO REPORTED EPISODES OF ANXIETY THAT WOULD "COME AND GO." DR. REINOSO MADE AWARE AND ORDERS FOR BUSPIRONE GIVEN, SEE EMAR. DEEP BREATHING TECHNIQUE ALSO DISCUSSED WITH PATIENT AND REINFORCED DURING SHIFT. AFTER AM DOSE OF LASIX, PATIENT HAD ONLY VOIDED 50ML WITH NO URGE TO VOID. PATIENT DENIED FEELINGS OF BLADDER PRESSURE OR IRRITATION BUT THIS NURSE PERFORMED A BLADDER SCAN WHICH SHOWED RETENTION OF 440ML. DR REINOSO MADE AWARE AT 1452, NO NEW ORDERS GIVEN. AT 1621 PT VOIDED 200ML URINE. BLADDER SCAN PERFORMED AGAIN AND ONLY SHOWED 77ML OF URINE IN BLADDER. 1800 DOSE OF LASIX GIVEN. WILL PASS ON TO REPORT CONCERNS REGARDING RETENTION. TELE MONITORING IS IN PLACE AND SHOWS PATIENT IS IN AFLUTTER 110'S. IV IN RIGHT FOREARM IS SALINE LOCKED. HE CONTINUED TO UTILIZE BEDSIDE URINAL TO VOID. NO ACUTE CHANGES NOTED. WILL CONTINUE TO MONITOR UNTIL REPORT GIVEN.
[2021-08-15 04:37] LABS: BASOPHILS ABSOLUTE AUTO 0.03 K/mm3 (0.00-0.23); BASOPHILS PERCENT AUTO 0 % (0-2); EOSINOPHILS ABSOLUTE AUTO 0.01 K/mm3 (0.00-0.68); EOSINOPHILS PERCENT AUTO 0 % (0-6); Hematocrit 46.8 % (37.0-53.0); Hemoglobin 13.8 g/dL (13.5-17.5); IMMATURE GRAN PERCENT AUTO 1 % (0-1); LYMPHOCYTES ABSOLUTE AUTO 1.91 K/mm3 (0.84-5.20); LYMPHOCYTES PERCENT AUTO 15 % (21-46); MONOCYTES ABSOLUTE AUTO 0.81 K/mm3 (0.16-1.47); MONOCYTES PERCENT AUTO 6 % (4-13); Mean Corpuscular HGB 24.6 pg (26.0-34.0); Mean Corpuscular HGB Conc 29.5 g/dL (31.5-36.5); Mean Corpuscular Volume 84 fL (80-100); Mean Platelet Volume 10.1 fL (9.1-12.4); NEUTROPHILS ABSOLUTE AUTO 10.15 K/mm3 (1.96-9.15); NEUTROPHILS PERCENT AUTO 78 % (41-73); NRBC ABSOLUTE 0.08 K/mm3 (0.00-0.02); NRBC Auto 0.6 /100 WBC (0.0-0.2); Platelet Count 333 K/mm3 (150-400); RDW Standard Deviation 58.3 fL (35.1-46.3); White Blood Cell Count 13.01 K/mm3 (4.00-11.30)
[2021-08-15 05:11] LABS: Bun/Creatinine Ratio 16.1 (12.0-20.0); Creatinine, Blood 2.49 mg/dL (0.60-1.20); Free Thyroxine 1.38 ng/dL (0.70-1.60); Thyroid Stimulating Hormone 12.6 uIU/mL (0.360-4.800)
--- NOTE | 2021-08-15 05:30 | NUR ---
SHIFT SUMMARY PT ALERT AND ORIENTED X3. DISORIENTED TO DATE. HR AFLUTTER 80-120'S. ON 0-2L NC SATS OVER 97%. LUNG SOUNDS CLEAR. AFEBRILE. BP STABLE. X2 ANXIETY ATTACKS THROUGHOUT NIGHT. PT FEELS SOB AND IS DIAPHORETIC. RELIEVED WITH RN IN ROOM. PT STATES THE ANXIETY ATTACKS HAPPEN AFTER HE MOVES AROUND. VITAL SIGNS REMAIN STABLE DURING THESE ANXIETY EPISODES. PT IN BED SLEEPING WITH CALL ALARM AT SIDE. WILL CONTINUE TO MONITOR UNTIL REPORT GIVEN TO DAYSHIFT RN
--- NOTE | 2021-08-15 07:59 | NUR ---
CARE ASSUMPTION PATIENT IS ALERT AND ORIENTED X3. PATIENT THOUGHT TODAY WAS WEDNESDAY INSTEAD OF WEDNESDAY. PERRLA. NEURO IS INTACT OTHERWISE. VSS. TELE AFLUTTER 103. PATIENT REPORTS NO CHEST PAIN/PRESSURE, OR PAIN. PATIENT DOES BECOME SHORT OF BREATH WITH EXERTION. LUNG SOUNDS CLEAR/DIM. PATIENT HAS STRONG RADIAL AND FAINT PEDIS PULSE. SEE SHIFT ASSESSMENT FOR FULL DETAILS. THIS RN PROVIDED THERAPEUTIC COMMUNICATION AND ACTIVE LISTENING WHILE PATIENT EXPLAINED WHY HE WAS IN THE HOSPITAL. THIS RN STRESSED THE IMPORTANCE OF MEDICATION COMPLIANCE, WHICH PATIENT STATED HE NOTICED HIS WORSING OF SHORTNESS OF BREATH AFTER HE STOPPED TAKING HIS MEDICATIONS DUE TO INSOMNIA. CALL LIGHT IS WITHIN REACH AND BED IN LOWEST POSITION. WILL CONTINUE TO MONITOR AND PROVIDE CARE.
--- NOTE | 2021-08-15 12:38 | NUR ---
CRITICAL VALUE THIS RN RECEIVED A CALL FROM [facility] AT 1230 WITH CRITICAL LACTIC AT 8.9. THIS RN INFOMRED DIGESTER, KAT, AT 1230. THIS RN INFORMED MD REINOSO AT 1233 OF CRITICAL VALUE. THERE IS NO CHANGE IN PATIENT CONDITION. WILL CONTINUE TO MONITOR AND PROVIDE CARE.
[2021-08-15 15:37] LABS: PCO2 Arterial 19.8 mmHg (35-45); PO2 Arterial 480 mmHg (80-100); pH Blood Arterial 7.31 (7.35-7.45)
--- NOTE | 2021-08-15 16:04 | NUR ---
RAPID CALLED THIS RN HEARD PATIENT GRUNTING FROM ROOM AND WENT IN TO FIND PATIENT LAYING ON HIS STOMACH WITH HIS RIGHT LEG HANGING OUT OF BED. AT THE SAME TIME, THE PERSON WHO CAME TO DO AN ECHO INFORMED THE SENIOR PASTOR THAT THE PATIENT DIDN'T LOOK LIKE HE FELT WELL. SENIOR PASTORKAT CAME IN RIGHT BEHIND ME, AND SO DID EPHRAIM ORTIZ. PATIENT WAS IN RESPIRATORY DISTRESS AND NON RESPNSIVE, WHEN TURNED BACK ONTO HIS BACKSIDE HIS FACE WAS BLUE AND NOT BREATHING, HIS EXTREMITIES WERE BLUE, WELL HIS EARS. SEE VITAL SIGNS SECTION TO SEE VITAL SIGNS TREND. IT WAS DIFFICULT TO GET A GOOD OXYGEN READING, THE BEST PLACE WE COULD WAS THE EAR LOBE. A RAPID WAS CALLED AT 1455. THIS RN, KAYLIE RN, AND KAT ORTIZ TRIED TO GET THE PATIENT TO RESPOND, AND HE WAS UNRESPONSIVE, A STERUM RUB WAS DONE, AND OXYGEN INCREASED. PATIENT STARTED TO BREATH AND MOAN AND GROAN. RESPIRATOY THERAPY INTO ROOM AND HAD A NON REBREATHER BROUGHT INTO THE ROOM AND APPLIED TO THE PATIENT, SO PATIENT ON 15L NC AND 15L NRB. PATIENT STARTED TO TURN LESS BLUE, BUT STILL HAD THE DUSKY APPERANCE AND WAS RESPONSIVE NOW AND ASKED WHAT HAPPENED. ICU CHARGE NURSE ALYSSA INTO ROOM AND ASSITING WITH CARE. TRE, NURSING LOOM WINDER TENDER CALLED FAMILY AND CALLED MD REINOSO. THIS RN STEPPED OUT AND INFORMED MD REINOSO OF THE SITUATION, AND A STAT CHEST X RAY AND EKG WAS PUT IN AND DONE. ALYSSA ORTIZ AND KAT ORTIZ APPLIED THE EKG. RESPIRATORY THERAPY SWITCHED PATIENT TO THE BIPAP. PATIENT BECAME MORE RESPONSIVE AND ASKED WHAT HAPPENED. PATIENT EXTREMITIES STILL DUSKY/PURPLE IN [place]CE AND COOL TO TOUCH. PLANT ATTENDANT OR ASSISTANT OPERATOR DID CHEST XRAY. PATIENT WAS TRANSFERD TO ICU AT 1510, WITH THIS RN, KAT ORTIZ, ALYSSA RN, AND RESPIRATORY THERAPY. PATIENT ON PORTABLE VITAL MACHINE MONITOR. PATIENT ARRIVED TO ICU AND WAS TRANSFERED VIA SLIDER SHEET TO ICU BED. VITAL SIGNS WERE TAKEN, SEE VITAL SIGNS TO SEE TRENDS. REPORT WAS GIVEN TO ICU NURSE AT BEDSIDE. PATIENT WAS RESPONSIVE, BUT FAINT RADIAL PULSES AND STILL PURPLE DISCOLORATION TO EXTREMITIES AND EAR LOBES. THIS RN CALLED MD REINOSO CALLED INFORMED OF MOVING TO ICU, MD REINOSO WAS ON HIS WAY UP AND ARRIVED THIS RN WAS LEAVING.
[2021-08-15 17:34] LABS: Source, Urine Foley catheter
[2021-08-15 17:46] LABS: Appearance, Urine Cloudy (Clear); Blood, Urine 1+ (Neg); Color, Urine Yellow (P-Yellow); Glucose Qualitative, Urine Neg (Neg); Ketones, Urine 1+ (Neg); Leukocyte Esterase, Urine 1+ (Neg); Nitrite, Urine Pos (Neg); Protein, Urine 4+ (Neg); Urobilinogen, Urine 3+ (Normal)
[2021-08-15 18:05] LABS: Bilirubin, Urine 1+ (Neg)
[2021-08-15 18:08] LABS: Amorphous Light (0-Heavy); Bacteria Many /hpf; Granular Casts Rare /lpf (0); Red Blood Cells, Urine 0-2 /hpf (0-2); Squamous Epithelial Cells Not Seen /hpf (Few)
--- NOTE | 2021-08-15 18:36 | NUR ---
PT TRANSFERRED FROM PCU AROUND 1515. PT ARRIVES ON BIPAP, WITH GENERALIZED MOTTLING. UNABLE TO GET AN ACCURATE O2 SAT READING DUE TO POOR PERFUSION. EARS PURPLE, FEET AND TOES DARK PURPLE, MOTTLED TO MID [place]. HANDS MOTTLED. PT DROWSY BUT ROUSES TO VOICE AND IS ORIENTED TO PERSON, PLACE AND TIME. BEAR HUGGER PLACED DUE TO HYPOTHERMIA. BIPAP SETTINGS NOW 16/8 90%. BP STABLE, SEE VITALS. A FLUTTER RATE 70S-90S. HARRIS PLACED. UA SENT.
--- NOTE | 2021-08-15 19:33 | NUR ---
ASSUMED PT CARE AT 1915 PT RESTING IN BED ON BIPAP 20/01; FIO2 90%. OXYGEN SATURATION READING 30%; HOWEVER, PT IS VERY CYANOTIC TO ALL EXTREMITIES, EARS, AND LIPS; VERY POOR PERFUSION. PT IS IN AN AFLUTTER; 3:1 CONDUCTION WITH OCCASIONAL 2:1 CONDUCTION. RATE 70'S. BP'S LOW, BUT STABLE WITH MAP'S >65 MMHG. PT IS ALERT AND ORIENTED AND ABLE TO MAKE NEEDS KNOWN. STATES HE DID NOT KNOW HE HAD HEART FAILURE. STATES HE LIVES ALONE, BUT TAKES CARE OF HIS 90 YEAR OLD MOM WHO IS CURRENTLY AT [facility] D/T A BROKEN HIP. PT GAVE ME PERMISSION TO CALL AND GIVE HER AN UPDATE REGARDING HIS CONDITION, WELL TO CHECK IN ON HOW SHE IS DOING. URINE OUTPUT HAS BEEN MINIMAL PER REPORT; HARRIS CATHETER IS PATENT AND DRAINING DARK, YELLOW URINE TO GRAVITY. TEMP IS 96; MELIDA HUGGER IN PLACE. PT ON BED SHELTON X2; STATES HE HAS BEEN HAVING DIARRHEA THE LAST COUPLE OF DAYS. HOWEVER, PT HAS NOT PRODUCED ANY STOOL, JUST GAS. DOES NOT TOLERATE LYING FLAT WHEN PLACING ON BED SHELTON. BECOMES VERY SOB WITH HEAD BECOMING MORE CYANOTIC THAN BEFORE; THEREFORE, PT ONLY LOWERED TO 30 DEGREES SECOND TIME HE WAS PLACED ON BED SHELTON. CARDIOLOGY CONSULTED, BUT HAS NOT SEEN PT YET. ORDERS FOR HEPARIN GTT TO START AT 1999. WILL CONTINUE TO KEEP AN EYE OUT FOR CARDIOLOGY TO STOP BY AND SEE PT. CALL LIGHT WITHIN REACH; SEE SHIFT SUMMARY FOR FURTHER DETAILS.
--- NOTE | 2021-08-15 22:18 | NUR ---
CALL MADE TO DR. LACY BP'S HAVE BEEN LABILE WITH MOST RECENT BP'S SHOWING SBP 60-70'S WITH MAP'S 50'S. PT STILL AROUSABLE AND ALERT, BUT MUCH MORE LETHARGIC COMPARED TO EARLIER. PT STILL REMAINS CYANOTIC; THEREFORE, UNSURE IF BP'S ARE ACCURATE. ATTEMPTED MANUAL, BUT UNABLE TO HEAR BRACHIAL PULSE. THEREFORE, WAS ABLE TO OBTAIN A DOPPLER BP OF 82/D. NEW ORDERS FOR LEVOPHED AND DOBUTAMINE, WELL AN ART LINE PLACEMENT IF THERE WAS A PHYSICIAN AVAILABLE TO INITIATE ONE. CALL MADE TO DR. JORDAN.
--- NOTE | 2021-08-15 23:00 | NUR ---
DR. JORDAN AT BEDSIDE ART LINE PLACEMENT TO RIGHT FEMORAL SITE. PT TOLERATED WELL. ART LINE ZERO'D AT PHLEBOSTATIC AXIS. ART BP'S CORRELATING WITH NON-INVASIVE BP'S. MAP'S ARE AT 65 MMHG; THEREFORE, LEVOPHED AND DOBUTAMINE NOT STARTED AT THIS TIME. WILL CONTINUE TO REASSESS BP'S THE SHIFT CONTINUES.
[2021-08-16 04:50] LABS: BASOPHILS ABSOLUTE AUTO 0.03 K/mm3 (0.00-0.23); BASOPHILS PERCENT AUTO 0 % (0-2); EOSINOPHILS ABSOLUTE AUTO 0.01 K/mm3 (0.00-0.68); EOSINOPHILS PERCENT AUTO 0 % (0-6); Hematocrit 41.4 % (37.0-53.0); Hemoglobin 12.6 g/dL (13.5-17.5); IMMATURE GRAN ABSOLUTE AUTO 0.13 K/mm3 (0.00-0.10); IMMATURE GRAN PERCENT AUTO 1 % (0-1); LYMPHOCYTES ABSOLUTE AUTO 2.22 K/mm3 (0.84-5.20); LYMPHOCYTES PERCENT AUTO 13 % (21-46); MONOCYTES ABSOLUTE AUTO 1.19 K/mm3 (0.16-1.47); MONOCYTES PERCENT AUTO 7 % (4-13); Mean Corpuscular HGB 24.7 pg (26.0-34.0); Mean Corpuscular HGB Conc 30.4 g/dL (31.5-36.5); Mean Corpuscular Volume 81 fL (80-100); Mean Platelet Volume 10.1 fL (9.1-12.4); NEUTROPHILS ABSOLUTE AUTO 13.25 K/mm3 (1.96-9.15); NEUTROPHILS PERCENT AUTO 79 % (41-73); NRBC ABSOLUTE 0.08 K/mm3 (0.00-0.02); NRBC Auto 0.5 /100 WBC (0.0-0.2); Platelet Count 310 K/mm3 (150-400); RDW Coefficient Variation 19.3 % (11.7-14.2); Red Blood Cell Count 5.11 M/mm3 (4.30-5.90); White Blood Cell Count 16.83 K/mm3 (4.00-11.30)
[2021-08-16 05:09] LABS: PCO2 Arterial 22.5 mmHg (35-45); PO2 Arterial 316 mmHg (80-100); pH Blood Arterial 7.33 (7.35-7.45)
--- NOTE | 2021-08-16 05:12 | NUR ---
END OF SHIFT SUMMARY PT REMAINED OFF PRESSORS/INOTROPES THIS SHIFT. ONCE ART LINE WAS IN PLACE MAP'S REMAINED AT 65MMHG. PT STILL BECOMES SOB AT TIMES AND WILL REQUIRE BIPAP; 16/8; FIO2 65%, RR 20'S. LUNG SOUNDS REMAIN CLEAR. PT HAS BEEN NOTED TO BE IN AND OUT OF AFLUTTER TO SINUS TACH; RATE CURRENTLY AT 105. HEPARIN REMAINS AT 15 UNITS/KG/HR. PERIPHERAL EXTREMITIES, EARS, AND LIPS REMAIN CYANOTIC. PULSES OBTAINED VIA DOPPLER. PT HAS HAD MULTIPLE LOOSE BM'S THIS SHIFT. MINIMAL URINE OUTPUT 30CC THIS SHIFT; DR. LACY INFORMED. FLUSHED CATHETER PT STATED HE FELT THE URGE TO PEE AND COULDN'T; HOWEVER, THIS WAS UNEFFECTIVE. BLADDER SCANNED WITH MINIMAL TO NO URINE IN BLADDER. PT VERY THIRSTY THIS SHIFT AND CONTINUALLY ASKED FOR SPRITE. LIMITED FLUID INTAKE D/T HEART FAILURE AND PT AGREED TO ICE CHIPS. PT ABLE TO MAKE NEEDS KNOWN; CALL LIGHT IS WITHIN REACH. WILL CONTINUE TO MONITOR UNTIL REPORT IS HANDED OFF TO ONCOMING RN.
[2021-08-16 05:46] LABS: Albumin/Globulin Ratio 0.7 (0.8-1.8); Bilirubin, Total 3.9 mg/dL (0.1-1.0); Bun/Creatinine Ratio 16.1 (12.0-20.0); Calcium, Blood 8.3 mg/dL (8.5-10.1); Creatinine, Blood 3.84 mg/dL (0.60-1.20); Globulin, Blood 4.3 g/dL (2.2-4.0); Potassium, Blood 5.6 mmol/L (3.5-5.5); Total Protein, Blood 7.3 g/dL (6.4-8.2)
[2021-08-16 08:40] LABS: PCO2 Arterial 22.2 mmHg (35-45); PO2 Arterial 485 mmHg (80-100); pH Blood Arterial 7.35 (7.35-7.45)
--- NOTE | 2021-08-16 09:25 | NUR ---
PT'S SPO2 MONITOR HAS BEEN READING IN THE 50S-70S WITH A GOOD PLETH. PT'S COLOR REMAINS GOOD, HE IS ALERT AND ORIENTED. MULTIPLE SITES ATTEMPTED FOR BETTER READINGS, BUT ALL READ LOW. SPOKE WITH DR. REINOSO WHO AGREED TO ABG TO CONFIRM THAT PT IS STILL OXYGENATING WELL DESPITE SPO2 NOT READING AND OXYGENATION IS GOOD PER ABG RESULTS. ALRM FOR SPO2 MONITOR EVNTUALLY TURNED OFF AFTER NO SUCCESS GETTING IT TO READ CORRECTLY BECAUSE OF CONCERN FOR ALARM FATIGUE MONITOR CONSTANTLY ALARMING. READING IS STILL VISIBLE ON MONITOR. DR. MITCEHLL CAME BY AND SAW PT. CONSULTED DR. RODRIGUEZ WHOM HE SPOKE TO. DR. RODRIGUEZ CALLED AND GAVE ORDER FOR LOKELMA, CHEM 8 AND FLUID RESTRICTION.
--- NOTE | 2021-08-16 13:04 | NUR ---
REASSESSMENT PT HAS BEEN RESTING IN BED THROUGHOUT THE MORNING. HE HAD A 30 MIN BREAK OFF THE BIPAP THIS MORNING BEFORE HE GOT DYSPNEIC AND NEEDED IT BACK ON. LATER THIS MORNING WHEN HE TOOK HIS PILLS HE ONLY TOLERATED 5 MINUTES OFF THE BIPAP. DR. PICKENS CAME BY AND GAVE INSTRUCTIONS TO START THE LEVOPHED AND DOBUTAMINE DESPITE MAP BEING 65. PT'S LUNGS HAVE A FEW CRACKLES AT THE BASES. SR WITH PAC AND PVC. 1+ PITTING EDEMA IN THE LEGS. SKIN COLOR IS STILL DUSKY IN THE EXTREMITIES. HARRIS WITH ONLY 30ML OF DARK CLOUDY URINE OUT THIS AM. PT'S BROTHER VISITED AND WAS UPDATED BY TRAY SERVER. CONTINUING TO MONITOR.
--- NOTE | 2021-08-16 13:37 | NUR ---
THE BRIDGE OF PT'S NOSE IS STARTING TO LOOK PINK, BLANCHABLE. TRIED PLACING GEL CUSHION UNDERNEATH BIPAP BUT PT DID NOT LIKE IT IT CREATED A SMALL AIR LEAK BY HIS EYE THAT WE COULDN'T FIX DESPITE READJUSTING MASK. PT REQUESTED NOT TO USE THE GEL CUSHION. MASK PUT BACK ON, ATTEMPTED TO AVOID THE PINK AREA BEST POSSIBLE AND GIVING PT BREAKS FROM MASK ABLE TO PROTECT SKIN.
--- NOTE | 2021-08-16 15:04 | NUR ---
DR. PICKENS CALLED AND UPDATED ON PT'S INCREASING NEED FOR PRESSORS WELL CONVERSION INTO AFLUTTER, RATE IN THE 70S AND 80S. CURRENTLY PT IS RECEIVING 2MCG/KG/MIN AND LEVOPHED AT 18 MCG/MIN. DR. PICKENS ADVISED LEAVING ATHE DOBUTAMINE AT 2, INCREASE THE LEVOPHED TO 20 WITH HOPES THAT MAP WILL STAY BETWEEN 60 AND 65. CONTINUE TO MONITOR AT THIS POINT.
--- NOTE | 2021-08-16 16:24 | NUR ---
SHIFT SUMMARY PT CONTINUES TO BE ALERT AND ORIENTED, REQUIRING BIPAP FOR DYSPNEA AND OVERALL REMAINS DUSKY IN COLOR. LEVOPHED AND DOBUTAMINE INFUSING, MAP CURRENTLY 67. AFLUTTER. LUNGS HAVE CRACKLES IN THE BASES. PT TOTALED 30 MINUTES AT MOST OFF THE BIPAP TODAY BEFORE GETTING DYSPNEIC. HE WAS ABLE TO EAT A FEW SMALL SNACKS DURING THOSE BREAKS. PT GOT ON THE BIPAP SEVERAL TIMES SAYING HE FELT LIKE HE NEEDED TO HAVE A BM, BUT ONLY HAD MUCOUSY SMEARS. HARRIS WITH SCANT OUTPUT. CONTINUING TO MONITOR.
[2021-08-16 16:47] LABS: Bun/Creatinine Ratio 15.3 (12.0-20.0); Calcium, Blood 7.3 mg/dL (8.5-10.1); Creatinine, Blood 4.37 mg/dL (0.60-1.20); Potassium, Blood 5.9 mmol/L (3.5-5.5)
--- NOTE | 2021-08-16 19:15 | NUR ---
ASSUMED PT CARE AT 1915 FROM [facility] BR[facility] PT RESTING IN BED WITH CPAP IN PLACE; IPAP 12, FIO2 50%, VT 900, RATE 20'S. PT REMAINS AFLUTTER WITH RATE 70-80'S; BP'S STABLE WITH DOBUTAMINE AT 2MCG/KG/MIN, LEVOPHED AT 20MCG/MIN. HEPARIN GTT ON STANDBY D/T DIALYSIS CATHETER PLACEMENT NEEDING TO BE PERFORMED THIS SHIFT. BICARB GTT AT 100ML/HR. PT REMAINS ALERT AND ORIENTED AND ABLE TO MAKE HIS NEEDS KNOWN. PT REMAINS CYANOTIC TO PERIPHERAL EXTREMITIES WITH INACCURATE SPO2 READING D/T POOR PERFUSION; HOWEVER, PER ABG RESULTS PO2 IS ADEQUATE. TEMP HARRIS CATHETER IS PATENT AND DRAINING MINIMAL TO NO URINE OUTPUT. GOAL IS FOR DIALYSIS TREATMENT TONGHT. CALL LIGHT IS WITHIN REACH; PT IS ABLE TO MAKE NEEDS KNOWN.
--- NOTE | 2021-08-16 20:49 | NUR ---
DR. GRAVES AT BEDSIDE PLACING DIALYSIS CATHETER TO RIGHT IJ
[2021-08-17 03:43] LABS: Hematocrit 36.3 % (37.0-53.0); Hemoglobin 11.5 g/dL (13.5-17.5)
[2021-08-17 03:58] LABS: Magnesium, Blood 2.1 mg/dL (1.6-2.4)
[2021-08-17 04:05] LABS: Albumin, Blood 2.5 g/dL (3.4-5.0); Anion Gap 16 mmol/L (6-16); Blood Urea Nitrogen 51 mg/dL (8-24); Bun/Creatinine Ratio 14.4 (12.0-20.0); CO2, Blood 22 mmol/L (21-32); Chloride, Blood 92 mmol/L (98-108); Creatinine, Blood 3.55 mg/dL (0.60-1.20); Glomerular Filtration Rate 18 (60-); Glucose, Blood 228 mg/dL (70-99); Phosphorus, Blood 6.9 mg/dL (2.5-4.9); Sodium, Blood 130 mmol/L (136-145)
[2021-08-17 04:18] LABS: Potassium, Blood 3.9 mmol/L (3.5-5.5)
--- NOTE | 2021-08-17 05:28 | NUR ---
END OF SHIFT SUMMARY PT HAS BEEN SLEEPING MOST OF SHIFT WITH CPAP IN PLACE; IPAP 12; FIO2 35%. RR 20'S; SPO2 100% WHEN ABLE TO GET A READING. PT REMAINS DUSKY AND CYANOTIC WITH VERY FAINT PULSES OBTAINED VIA DOPPLER. LUNG SOUNDS REMAIN CLEAR WITH OCCASIONAL RHONCHI. PT NOTED TO BE AFLUTTER MOST OF NIGHT, BUT ALSO NOTED TO BE IN SINUS TACHYCARDIA WITH RATE 90-110'S. ART LINE REMAINS TO RIGHT FEMORAL ARTERY. DOBUTAMINE REMAINS AT 2MCG/KG/MIN AND LEVOPHED AT 6MCG/MIN. HEPARIN AT 5 UNITS/KG/HR, AND BICARB AT 100ML/HR. PICC TO BRYAN. TRIALYSIS CATH TO RIGHT IJ; PT WAS DIALYZED WITH 2L REMOVED THIS SHIFT. ABDOMEN REMAINS DISTENDED, FIRM, AND TENDER UPON PALPATION; NO BM'S THIS SHIFT. PT REQUIRES SIGNIFICANT EDUCATION REGARDING DISEASE PROCESS. HE HAS BEEN ENCOURAGED TO REPOSITION, WELL PARTICIPATE IN ORAL CARE; HOWEVER, HE CAN BE RESISTANT AT TIMES. WILL CONTINUE TO MONITOR UNTIL REPORT IS HANDED OFF TO ONCOMING RN.
--- NOTE | 2021-08-17 09:38 | NUR ---
LEVOPHED INCREASED FOR ANTICIPATION OF DIALYSIS AND THEN ONCE DIALYSIS STARTED GOING BP DROPPED AGAIN SO LEVOPHED INCREASED MORE. AT THAT DR. GRAVES CAME IN TO SEE PT ON MORNING ROUND AND PT ABRUPTLY STIFFENED, TURNED PURPLE, PUPILS DILATED TO ABOUT 7MM, UNRESPONSIVE, BREATHING BUT IRREGULAR. DR. GRAVES ORDERED 2MG ATIVAN STAT. ATIVAN GIVEN, RT AND SUPERVISOR PROCESS TESTING TO BEDSIDE. AFTER ABOUT 1MINUTE PT STARTED TO RECOVER. REMAINS UNRESPONSIVE, BUT COLOR IMPROVED, PUPILS BACK TO NORMAL, PT PLACED ON BIPAP AND BREATHING REGULARLY WITH THAT, BP IMPROVED WITH INCREASE IN LEVOPHED. DR. GRAVES ORDERED FOR HEAD CT, NO CONTRAST AND EEG WEDNESDAY. DR. TILLMAN CAME TO THE BEDSIDE AND UPDATED ON EVENTS OF THE MORNING. ROBBIN RESUMED DIALYSIS AND PT CURRENTLY TOLERATING, SLEEPING ON THE BIPAP.
--- NOTE | 2021-08-17 12:49 | NUR ---
REASSESSMENT PT HAS CONTINUED ON THE BIPAP SINCE HIS EPISODE THIS MORNING. HE OPENS EYES TO PAINFUL SITMULI. WHEN HE OPENS HIS EYES HE SAYS "YES" REPEATEDLY, BUT WON'T ANSWER QUESTIONS AND WON'T FOLLOW COMMANDS. HIS LUNGS ARE CLEAR BUT VERY DIM. SINUS TACH WITH RATE IN TEENS. BP WITH MAP IN THE 80S, TITRATING LEVOPHED DOWN ABLE, DOBUTAMINE STILL INFUSING. BICARB GTT STOPPED PER DR. RODRIGUEZ. HARRIS WITH 700ML OF CLOUDY URINE OUT.
--- NOTE | 2021-08-17 16:57 | NUR ---
SHIFT SUMMARY PT HAS BEEN LETHARGIC SINCE HIS SEIZURE LIKE EPISODE THIS MORNING, BUT HIS RESPONSIVENESS HAS BEEN SLOWLY INCREASING THROUGHOUT THE AFTERNOON. HE NOW WILL OPEN HIS EYES TO VOICE AND FOLLOW SIMPLE COMMANDS. HE IS NOT MAKING ANY VERBAL RESPONSES YET. HIS LUNGS ARE CLEAR, BUT DIM. HE WORE BIPAP MOST OF THE DAY, BUT IS CURRENTLY ON A BREAK ON 4L/NC AND DOING WELL. HE REMAINS ON LEVOPHED AND DOBUTAMINE. AT ONE POINT TODAY LEVOPHED WAS ACTUALLY OFF, BUT PT'S BP DIDN'T HOLD AND IT HAD TO BE RESTARTED. HEPARIN INFUSING PER PHARMACY. PT TOLERATED DIALYSIS. HE HAD GOOD URINE OUTPUT THIS SHIFT, SEE I/O. PASSING GAS, BUT NO BM THIS SHIFT. CONTINUING TO MONITOR.
--- NOTE | 2021-08-17 21:05 | NUR ---
ASSUMED PT CARE FROM [facility] BRIC[facility] AT 1915 PT SLEEPING IN BED. AROUSABLE TO VERBAL STIMULI. VERY LETHARGIC AND DROWSY. WILL ATTEMPT TO ANSWER QUESTIONS, BUT GENERALLY FALLS ASLEEP AFTER 1-2 WORD RESPONSES. PER REPORT, PT HAD WHAT APPEARED TO BE SEIZURE LIKE ACTIVITY EARLIER TODAY AND HAS BEEN POST-ICTAL SINCE. DOBUTAMINE REMAINS AT 2MCG/KG/MIN AND LEVOPHED AT 14MCG/MIN WITH STABLE BP'S, SEE FLOWSHEET. HEPARIN GTT REMAINS AT 5.5 UNITS/KG/HR. PT NOTED TO BE SINUS TACHYCARDIA WITH A RATE OF 120. ART LINE REMAINS IN PLACE TO RIGHT GROIN; LINE ZERO'D AT START OF SHIFT WITH DICROTIC NOTCH, AND GOOD PLETH NOTED TO WAVEFORM. PT CURRENTLY ON 4L NC. LUNG SOUNDS CLEAR/DIMINISHED TO BASES. EXTREMITIES REMAIN DUSKY, BUT PULSES ARE MORE PALPABLE THAN YESTERDAY. CAP REFILL REMAINS >3SEC. +1 PITTING TO BLE'S, DEPENDENT SACRAL, SCROTAL, AND BUE'S EDEMA. PER REPORT, PT RECEIVED DIALYSIS EARLIER TODAY WITH 2.5L REMOVED. TEMP HARRIS REMAINS PATENT AND DRAINING A GOOD AMOUNT OF DARK, YELLOR URINE TO GRAVITY. HELD EVENING MEDS D/T ASPIRATION RISK. SEE SHIFT SUMMARY FOR FURTHER DETAILS.
--- NOTE | 2021-08-18 01:00 | NUR ---
PT PULLED OUT TRIALYSIS CATHETER HEPARIN PLACED ON STANDBY FOR THE TIME BEING D/T HALF DOLLAR SIZE HEMATOMA FORMING, WELL SITE CONTINUING TO OOZE. ORDERS TO RESTART ONCE OOZING CEASES. PT ALERT AND ORIENTED; PT SLEEPING WITH HAND UP NEAR HEAD AND MUST HAVE ACCIDENTLY PULLED OUT THE CATHETER. DR. GRAVES TO SPEAK WITH DR. RODRIGUEZ IN THE MORNING REGARDING THE PLACEMENT OF ANOTHER CATHETER.
--- NOTE | 2021-08-18 01:04 | NUR ---
THIS RN ENTERED PT'S ROOM TO ASSESS PT HE WAS BECOMING HYPOTENSIVE W/ MAPS DOWN TO 57. UPON ENTERING ROOM, I FOUND THE PATIENT SATURATED WITH BLOOD AND HIS TRIALYSIS CATHETER LAYING ON HIS CHEST. PRESSURE HELD ON SITE UNTIL HEMOSTASIS ACHIEVED, THEN DRESSING APPLIED. HEMATOMA VISIBLE. PT STATED HE HAD PULLED OUT HIS TRIALYSIS CATHETER IN HIS SLEEP. NOREPI TEMPORARILY INCREASED TO 14 TO RECOVER BP. PT CLEANED & REPOSITIONED, NOREPI TURNED BACK TO 12. TRIALYSIS SITE W/ SCANT OOZING VISIBLE ON DRESSING. PT'S RN & NECKTIE TURNER NOTIFIED.
--- NOTE | 2021-08-18 01:11 | NUR ---
HEPARIN RESTARTED AT SAME RATE
[2021-08-18 02:43] LABS: Hematocrit 38.3 % (37.0-53.0); Hemoglobin 12.5 g/dL (13.5-17.5)
[2021-08-18 03:03] LABS: Albumin, Blood 2.2 g/dL (3.4-5.0); Anion Gap 9 mmol/L (6-16); Blood Urea Nitrogen 42 mg/dL (8-24); Bun/Creatinine Ratio 15.3 (12.0-20.0); CO2, Blood 33 mmol/L (21-32); Calcium, Blood 7.7 mg/dL (8.5-10.1); Chloride, Blood 94 mmol/L (98-108); Creatinine, Blood 2.75 mg/dL (0.60-1.20); Glomerular Filtration Rate 24 (60-); Glucose, Blood 187 mg/dL (70-99); Magnesium, Blood 1.9 mg/dL (1.6-2.4); Potassium, Blood 3.1 mmol/L (3.5-5.5); Sodium, Blood 136 mmol/L (136-145)
[2021-08-18 03:06] LABS: Phosphorus, Blood 2.9 mg/dL (2.5-4.9)
--- NOTE | 2021-08-18 05:52 | NUR ---
END OF SHIFT SUMMARY PT HAS REMAINED VERY DROWSY AND SLEEPING MOST OF SHIFT. ABLE TO WAKE UP AND IS AOX4; HOWEVER, FALLS BACK TO SLEEP QUICKLY. HELD ALL PO MEDS D/T ASPIRATION RISK. RIGHT TRIALYSIS CATHETER SITE REMAINS STABLE WITH NO FURTHER OOZING. PRESSURE GAUZE AND TRANSPARENT DRESSING REMAIN INTACT; HEMATOMA HAS MOSTLY RESOLVED. PT HAD COPIOUS AMOUNTS OF URINE OUTPUT THIS SHIFT; 4450CC. DOBUTAMINE CONTINUES AT 2MCG/KG/MIN AND LEVOPHED IS NOW AT 8MCG/MIN WITH MAP'S >65 MMHG. HEPARIN CONTINUES AT 5.5 UNITS/KG/HR. ART LINE TO RIGHT GROIN SITE REMAINS UNCHANGED. PICC TO RIGHT UPPER ARM. PT HAS BEEN ON ROOM AIR MOST OF NIGHT WITH OXYGEN SATURATIONS REMAINING >90% WHEN ABLE TO OBTAIN SATURATION READING. PT REMAINS AFLUTTER WITH RATE 120'S; 2:1 CONDUCTION AND OCCASIONAL 3:1 CONDUCTION. WILL CONTINUE TO MONITOR UNTIL REPORT IS HANDED OFF TO ONCOMING RN.
--- NOTE | 2021-08-18 06:53 | NUR ---
DR. RODRIGUEZ AT BEDSIDE INFORMED OF PT PULLING OUT TRIALYSIS CATHETER WITH URINE OUTPUT >4000. NEW ORDERS FOR NO NEW CATHETER PLACEMENT AND HE WILL CONTINUE MONITORING KIDNEY FUNCTION AND URINE OUTPUT
--- NOTE | 2021-08-18 07:19 | NUR ---
ASSUMPTION OF CARE RECEIVED REPORT FROM HOOD ORTIZ. ASSUMED CARE OF PATIENT. PATIENT IN BED, EYES CLOSED, RESPONDED TO VERBAL STIMULI, A/O. VITALS STABLE WITH 02 SATS AT 95% ON RA, MAP ABOVE 65 WITH DOBUTAMINE AT 2MCG/KG/MIN AND LEVOPHED AT 8 MCG/MIN. HEPARIN INFUSING AT 5.5UNITS/HR, POTASSIUM BEING REPLACED IV. PICC LINE TO RUE DRESSING CDI. ART LINE TO RIGHT GROIN, DRESSING CDI. HARRIS CATHETER PATENT AND DRAINING CLEAR, YELLOW URINE. WILL REVIEW ORDERS AND TREAT PRESCRIBED.
[2021-08-18 10:08] LABS: HBSAG SCREEN Negative (Negative); HEP A AB, IGM Negative (Negative); HEP B CORE AB, IGM Negative (Negative); HEP C VIRUS AB 0.1 (0.0-0.9)
--- NOTE | 2021-08-18 12:12 | NUR ---
EEG EEG PERFORMED FROM 1020 TO 1145. UNABLE TO MONITOR 02 SATS DURING THIS TIME. PATIENT REMAINED STABLE WITH NO ACUTE CHANGES. SPO2 PER FOREHEAD READING IS 94% ON ROOM AIR.
--- NOTE | 2021-08-18 15:13 | NUR ---
HEART RATE AT 1330 DR. PICKENS ROUNDED ON PATIENT, COMMUNICATED HEART RATE GOAL TO BE BELOW 100 PREFERABLY 90'S. LEVOPHED DECREASED TO MAINTAIN A MAP OF 60. AT 1500 PATIENT'S HEART RATE STILL 110-120'S. RECEIVED ORDERS TO INCREASE METOPROLOL PO. WILL TREAT PRESCRIBED.
--- NOTE | 2021-08-18 18:08 | NUR ---
SHIFT SUMMARY PATIENT A/O THROUGH OUT SHIFT. INDEPENDENTLY FEEDS AND TURNS SELF WITH VERBAL PROMPTING. ON RA WITH O2 SATS ABOVE 95%, PLACED 2L O2 VIA NC AFTER DINNER ONCE PATIENT ONCE SLEEPING FOR 02 85%. FOREHEAD PROBE UTILIZED DUE TO POOR PERFUSION TO EXTREMITIES. EEG PERFORMED, AWAITING RESULTS. POTASSIUM RECHECKED PER ECTOPY AND INCREASED URINE OUTPUT NOTED, REPLACEMENT GIVEN ORDERED BY DR. RODRIGUEZ. REVIEWED HEART RATE AND BLOOD PRESSURE WITH AUTOMATION CONTROLS SPECIALIST DR. PICKENS. INCREASED METOPROLOL DOSE AND DECREASED LEVOPHED KEEPING MAPS ABOVE 60. HEPARIN INCREASED ONE TIME PER PHARMACY WITH A PTT RECHECK ORDERED. WILL CONTINUE TO MONITOR AND REPORT TO ONCOMING RN.
--- NOTE | 2021-08-18 21:13 | NUR ---
ASSUMED CARE: AT CHANGE OF SHIFT, PT A/O X 4, WAITE, NAD, NO COMPLAINTS OF PAIN. AFLUTTER, NOREPI @ 4, DOBUTAMINE @ 1, HEPARIN GTT @ 6.5. FAINT BUT PALPABLE PULSES THROUGHOUT. POOR CAP REFILL. ART LINE R FEMORAL CDI. LUNGS CLEAR, 2L O2 NC. ABD SOFT, NONTENDER. HARRIS DRAINING CLEAR YELLOW URINE. HEMATOMA TO R NECK AT PREVIOUS TUNNELED CATH SITE W/ SCANT DRAINAGE TO DRESSING. BRYAN PICC CDI, INFUSING.
--- NOTE | 2021-08-19 06:25 | NUR ---
SHIFT SUMMARY: PT A/O, DROWSY, SLEPT WELL OVERNIGHT. NOREPI OFF AT 0035. MAPS >60. HR 90-110. DOBUTAMINE @ 2. HEPARIN INCREASED TO 7. PT REFUSED BIPAP OVERNIGHT. 2L O2 NC W/ SLEEP. OCCASIONAL LATHA W/ DESATS TO LOW 80S. POLYURIA OVERNIGHT. HARRIS DRAINING WELL.
[2021-08-19 08:05] LABS: Anion Gap 5 mmol/L (6-16); Blood Urea Nitrogen 41 mg/dL (8-24); Bun/Creatinine Ratio 18.6 (12.0-20.0); CO2, Blood 43 mmol/L (21-32); Calcium, Blood 7.4 mg/dL (8.5-10.1); Chloride, Blood 86 mmol/L (98-108); Creatinine, Blood 2.21 mg/dL (0.60-1.20); Glomerular Filtration Rate 31 (60-); Glucose, Blood 137 mg/dL (70-99); Magnesium, Blood 1.3 mg/dL (1.6-2.4); Phosphorus, Blood 2.5 mg/dL (2.5-4.9); Potassium, Blood 2.5 mmol/L (3.5-5.5); Sodium, Blood 134 mmol/L (136-145)
--- NOTE | 2021-08-19 09:03 | NUR ---
ASSUMED CARE REPORT FROM KEDAR AT 0700. PT RESTING IN BED. WAKES c VERBAL STIMULI. DENIES CHEST PAIN, SOB OR OTHER COMPLAINTS. SPEAKING IN FULL SENTANCES. LUNGS CLEAR. 2L VIA NC. O2 SATS >95%. NON PRODUCTIVE COUGH OCCASIONALLY. DOBUTAMINE AT SET RATE OF 2 MCG/KG/MIN, LEVO ON STANDBY. MAP >60. AFLUTTER, RATE 100'S. GOAL >90, METOPROLOL GIVEN. PERIPHERAL PULSES FAINT BY PALPABLE, DELAYED CAP REFILL. EXT DUSKY. ART LINE TO RIGHT GROIN, DRESSING C/D/I. FLUSHED AND ZERO'D. ABD ROUND, SOFT, NON TENDER. BT X 4. TOLERATED BREAKFAST WELL. 1L FLUID RESTRICTION. HARRIS PATENT, DRAINING TO GRAVITY. LABS DRAWN THIS AM, K, MG AND PHOS BEING REPLACED, PLAN FOR REPEAT LABS AT 1700. PALLIATIVE CARE CONSULTED. WILL CONTINUE TO MONITOR.
--- NOTE | 2021-08-19 09:21 | NUR ---
Brief supportive visit this AM. Pt resting in bed with his eyes closed. Pt wakes to moderate verbal stimuli. Pt denies pain and dyspnea at this time. Assessed Pt's understanding of current health. Pt states "something to do with my breathing or heart". Brief gentle education given and discussed the importance of routine conversations with MDs and specialist. Pt states "I hope I can function again". Pt states he is weak and unable to ambulate very far before needing to rest. Continued therapeutic listening. Ended visit to allow Pt to rest. Spoke with Primary RN Leni and discussed case. Palliative Care will remain available.
--- NOTE | 2021-08-19 10:59 | NUR ---
DR MIRAMONTES ROUNDS DOBUTAMINE TITRATED TO 1 MCG/KG/MIN, PLAN TO PLACE ON STANDBY IN 1 HOUR. ART LINE TO REMAIN IN TODAY, REASSESS NEED TOMORROW DAYSHIFT.
--- NOTE | 2021-08-19 17:31 | NUR ---
SHIFT SUMMARY NO ACUTE CHANGES THIS SHIFT. DOBUTAMINE AND LEVO REMAIN ON STANDBY. MAP>65. HR 100-120, AFLUTTER. REMAINED ON 2L VIA NC. LUNGS CLEAR. ART LINE IN PLACE, NO CHANGES. ANTICIPATE D/C OF LINE IF PRESSURES REMAIN STABLE OVERNIGHT. PT CONTINUES TO DENY COMPLAINTS. PICC TO RUE, DRESSING C/D/I. WILL CONTINUE TO MONITOR UNTIL REPORT TO ONCOMING NURSE.
[2021-08-19 17:39] LABS: Magnesium, Blood 1.7 mg/dL (1.6-2.4); Phosphorus, Blood 3.3 mg/dL (2.5-4.9); Potassium, Blood 2.8 mmol/L (3.5-5.5)
--- NOTE | 2021-08-19 21:13 | NUR ---
ASSUMED CARE: PT A/O, NAD, WAITE. RESTING COMFORTABLY. NO C/O PAIN. AFLUTTER W/ HR 110S-120S. BP WNL. R FEMORAL ART LINE CDI. PALPABLE PULSES THROUGHOUT. AFEBRILE 2L O2 NC. CLEAR LUNGS. HARRIS IN PLACE W/ GOOD URINE RETURN. NO SKIN ISSUES. NO CONSTIPATION. GOOD PO INTAKE- 1L FR ALREADY MET FOR THE DAY SO WILL NEED TO GO SLIGHTLY OVER FOR PM & EARLY AM MEDS.
[2021-08-20 05:30] LABS: BASOPHILS ABSOLUTE AUTO 0.02 K/mm3 (0.00-0.23); BASOPHILS PERCENT AUTO 0 % (0-2); EOSINOPHILS ABSOLUTE AUTO 0.09 K/mm3 (0.00-0.68); EOSINOPHILS PERCENT AUTO 1 % (0-6); Hematocrit 34.6 % (37.0-53.0); Hemoglobin 11.5 g/dL (13.5-17.5); IMMATURE GRAN ABSOLUTE AUTO 0.06 K/mm3 (0.00-0.10); IMMATURE GRAN PERCENT AUTO 1 % (0-1); LYMPHOCYTES ABSOLUTE AUTO 1.16 K/mm3 (0.84-5.20); LYMPHOCYTES PERCENT AUTO 11 % (21-46); MONOCYTES ABSOLUTE AUTO 1.06 K/mm3 (0.16-1.47); MONOCYTES PERCENT AUTO 10 % (4-13); Mean Corpuscular HGB 24.7 pg (26.0-34.0); Mean Corpuscular HGB Conc 33.2 g/dL (31.5-36.5); Mean Corpuscular Volume 74 fL (80-100); NEUTROPHILS ABSOLUTE AUTO 8.06 K/mm3 (1.96-9.15); NEUTROPHILS PERCENT AUTO 77 % (41-73); Platelet Count 135 K/mm3 (150-400); RDW Coefficient Variation 19.6 % (11.7-14.2); RDW Standard Deviation 52.2 fL (35.1-46.3); Red Blood Cell Count 4.65 M/mm3 (4.30-5.90); White Blood Cell Count 10.45 K/mm3 (4.00-11.30)
[2021-08-20 05:36] LABS: Mean Platelet Volume 10.8 fL (9.1-12.4)
[2021-08-20 05:56] LABS: Anion Gap 7 mmol/L (6-16); Blood Urea Nitrogen 52 mg/dL (8-24); Bun/Creatinine Ratio 26.4 (12.0-20.0); CO2, Blood 41 mmol/L (21-32); Calcium, Blood 7.2 mg/dL (8.5-10.1); Chloride, Blood 85 mmol/L (98-108); Creatinine, Blood 1.97 mg/dL (0.60-1.20); Glomerular Filtration Rate 35 (60-); Glucose, Blood 138 mg/dL (70-99); Magnesium, Blood 1.6 mg/dL (1.6-2.4); Phosphorus, Blood 2.7 mg/dL (2.5-4.9); Potassium, Blood 2.9 mmol/L (3.5-5.5); Sodium, Blood 133 mmol/L (136-145)
--- NOTE | 2021-08-20 06:33 | NUR ---
SHIFT SUMMARY: HEPARIN INCREASED TO 9 OVERNIGHT POTASSIUM= 2.9, MG= 1.6. KCL 40 MEQ IV X1, KCL 20 MEQ PO QD, MAG SULFATE 500 MG IV X 1 ORDERED PER MD RODRIGUEZ. NO OTHER CHANGES TO PT'S PRESENTATION.
--- NOTE | 2021-08-20 08:00 | NUR ---
ASSUMED CARE REPORT FROM KEDAR ORTIZ AT 0700. PT RESTING IN BED. WAKES c VERBAL STIMULI. A&OX 3. DENIES COMPLAINTS, REPORTS GOOD SLEEP LAST NOC. AFLUTTER ON MONITOR, RATE 110-120. BP STABLE. ART LINE TO RIGHT GROIN, DRESSING C/D/I. GOOD WAVEFORM. LINE FLUSHED AND ZERO'D. EXT DISCOLORED, DUSKY, DELAYED CAP REFILL. ABD ROUND, SOFT, NON TENDER. BT X 4. GOOD APPETITE. 1L FLUID RESTRICTION. HARRIS PATENT, DRAINING CLEAR RENITA URINE TO GRAVITY. PICC TO [facility], DRESSING TO BE CHANGED THIS SHIFT. HEPARIN GTT CONTINUES AT 9 UNITS/KG/HR. WILL CONTINUE TO MONITOR.
--- NOTE | 2021-08-20 15:42 | NUR ---
TRANSFER TO PCU/REPORT TO BERNARDO RN ART LINE REMOVED THIS SHIFT, MANUAL PRESSURE HELD, NO SWELLING, BRUISING OR HEMATOMA NOTED. TOLERATED WELL. HARRIS REMOVED, 1500ML RENITA URINE OUT THIS SHIFT. CURRENTLY WORKING c PT. BP STABLE, HR 100-120'S, AFLUTTER. NO OTHER ACUTE CHANGES THIS SHIFT. PT TO BE TRANSFERRED AFTER PT EVALUATION. ALL BELONGINGS TO BE SENT c PT.
--- NOTE | 2021-08-20 17:07 | NUR ---
PT TRANSFERRED FROM ICU 1 REPORT RECEIVED FROM RANDOLPH ORTIZ. PT ALERT AND ORIENTED X3, CALLS APPROPRIATELY SBA FOR TRANSFERS. DENIES ANY KIND OF PAIN UPON ARRIVAL. ON 1L FLUID RESTRICTION, PT COMPLIANT. CALM AND COOPERATIVE. BP SYSTOLIC REMAINS SOFT 80-90'S MAP KEPT ABOVE 60'S. NO COMPLAINTS AT THIS TIME, WILL MONITOR TIL THE END OF SHIFT
--- NOTE | 2021-08-21 04:19 | NUR ---
UPDATE PHYSICIAN NOTIFIED OF NO AM LABS AND K+ OF 2.9 AM OF 08/20. ORDERS PROVIDED, SEE EHR.
[2021-08-21 05:41] LABS: Hemoglobin 10.4 g/dL (13.5-17.5)
[2021-08-21 06:01] LABS: Anion Gap 4 mmol/L (6-16); Blood Urea Nitrogen 57 mg/dL (8-24); CO2, Blood 42 mmol/L (21-32); Calcium, Blood 7.5 mg/dL (8.5-10.1); Chloride, Blood 88 mmol/L (98-108); Creatinine, Blood 1.84 mg/dL (0.60-1.20); Glomerular Filtration Rate 38 (60-); Glucose, Blood 212 mg/dL (70-99); Magnesium, Blood 1.6 mg/dL (1.6-2.4); Phosphorus, Blood 2.3 mg/dL (2.5-4.9); Potassium, Blood 3.4 mmol/L (3.5-5.5); Sodium, Blood 134 mmol/L (136-145)
--- NOTE | 2021-08-21 06:11 | NUR ---
SHIFT SUMMARY PT ALERT AND ORIENTED X 4. HR A FIB 110'-120. BP STABLE, MAP ABOVE 65. OXYGEN SATURAITON MAINTAINED ABOVE 92% ON 2 L VIA NC WHILE SLEEPING. PT ABLE TO TURN SELF IN BED. USES URINAL AT BEDSIDE. NO CP OR PRESSURE. CALL LIGHT WITHIN REACH. WILL CONT TO MONITOR UNTIL REPORT GIVEN TO DAYSHIFT RN.
[2021-08-21 07:55] LABS: Albumin/Globulin Ratio 0.5 (0.8-1.8); Bilirubin, Direct 2.8 mg/dL (0.0-0.3); Bilirubin, Indirect 0.7 mg/dL (0.1-0.7); Bilirubin, Total 3.5 mg/dL (0.1-1.0)
--- NOTE | 2021-08-21 19:20 | NUR ---
PT SUMMARY: MO ACUTE CHANGE FOR THE SHIFT. LETTUCE CUTTER REMAINS SOFT SYSTOLIC 90-110'S, METOPROLOL SWITCHED TO XL 100MG, HRR 115-120'S, SATS KEPT ABOVE 92% ON RA, DESATS TO 87% WHEN SLEEPING 2L OF O2 PRN AT BEDSIDE. DENIES ANY PAIN/DISCOMFORT FOR THE SHIFT. RECEIVED A BED BATH TODAY. COMPLIANT WITH FLUID RESTRICTION, USES URINAL FOR VOIDING. PT WORKED WITH PT TODAY WAS ABLE TO WALK AROUND THE ROOM. NO ISSUES WITH APPETITE. PT ABLE TO MAKE NEEDS KNOWN, CALLS APPROPRIATELY WILL REPORT TO ONCOMING SHIFT
--- NOTE | 2021-08-22 05:45 | NUR ---
SHIFT SUMMARY PT ALERT AND ORIENTED X4. BP STABLE. ON RA SATS OVER 95%. HR AFLUTTER 120'S. AFEBRILE. NO C/O DISCOMFORT OR PAIN. R GROIN SITE C/D/I. 1L FLUID RESTRICTION. VOIDS INDEPENDENTLY WITH BEDSIDE URINAL. IN BED SLEEPING WITH CALL ALARM AT SIDE. WILL CONTINUE TO MONITOR UNTIL REPORT GIVEN TO KODY ORTIZ.
[2021-08-22 06:56] LABS: Bun/Creatinine Ratio 31.9 (12.0-20.0); Calcium, Blood 7.9 mg/dL (8.5-10.1); Creatinine, Blood 1.6 mg/dL (0.60-1.20); Potassium, Blood 3.9 mmol/L (3.5-5.5)
--- NOTE | 2021-08-22 18:14 | NUR ---
SHIFT SUMMARY PT HAS BEEN RESTING IN BED FOR MOST OF THE DAY. PT WORKED WITH PHYSICAL THERAPY AND TOLERATED THE ACTIVITY WELL. PT HAS BEEN ABLE TO SIT SELF UP TO BEDSIDE TO DANGLE LEGS AD ABHISHEK. PT HAS DENIED C/O PAIN OR DISCOMFORT AND HAS CALLED APPROPRIATELY FOR ASSISTANCE. PT EXPERIENCED NO EVENTS OF OXYGEN SATURATION DECLINE AND HAS REMAINED ON ROOM AIR FOR THE DAY, SPO2 >92%. SBP HAS REMAINED >100 AND HEART HAS CONSISTENTLY BEEN AROUND 120 DESPITE PO MEDICATION PER EMAR. THERE HAVE BEEN NO OTHER CHANGES IN PT CONDITION.
[2021-08-23 03:40] LABS: Hematocrit 33.2 % (37.0-53.0); Hemoglobin 10.8 g/dL (13.5-17.5)
[2021-08-23 03:57] LABS: Anion Gap 4 mmol/L (6-16); Blood Urea Nitrogen 43 mg/dL (8-24); Bun/Creatinine Ratio 27.9 (12.0-20.0); CO2, Blood 38 mmol/L (21-32); Calcium, Blood 7.6 mg/dL (8.5-10.1); Chloride, Blood 92 mmol/L (98-108); Creatinine, Blood 1.54 mg/dL (0.60-1.20); Glomerular Filtration Rate 47 (60-); Glucose, Blood 225 mg/dL (70-99); Magnesium, Blood 1.4 mg/dL (1.6-2.4); Phosphorus, Blood 1.9 mg/dL (2.5-4.9); Potassium, Blood 3.7 mmol/L (3.5-5.5); Sodium, Blood 134 mmol/L (136-145)
--- NOTE | 2021-08-23 06:14 | NUR ---
SHIFT SUMMARY PT ALERT AND ORIENTED X4. AFEBRILE. BP STABLE. ON RA SATS OVER 95%. NO C/O PAIN OR DISCOMFORT. INDEPENDENT FOR ADL'S. 1L FLUID RESTRICTION. IN BED RESTING WITH CALL ALARM AT SIDE. WILL CONTINUE TO MONITOR UNTIL REPORT GIVEN TO DAYSHIFT RN
--- NOTE | 2021-08-23 17:58 | NUR ---
SHIFT SUMMARY PT HAS BEEN RESTING IN ROOM, PT WILL AMBULATE TO THE RESTROOM WHEN THEY NEED TO RELIEVE THEMSELF AND HAS NOT CONSISTENTLY CALLED FOR ASSISTANCE. PT HAS GIVEN VERY LITTLE VERBAL RESPONSE AND APPEARS WITHDRAWN. PT SLEPT FOR A FEW HOURS AROUND MIDDAY. PT HAS DENIED C/O PAIN OR DISCOMFORT. SBP RANGED 105-113, HEART RATE HAS MAINTAINED A CONSISTENT 120'S ATRIAL FLUTTER DESPITE PO MEDS. THERE HAVE BEEN NO ACUTE CHANGES TO PT CONDITION.
[2021-08-24 04:31] LABS: Hematocrit 35.7 % (37.0-53.0); Hemoglobin 11.2 g/dL (13.5-17.5)
--- NOTE | 2021-08-24 04:48 | NUR ---
SHIFT SUMMARY PT ALERT AND ORIENTED X4. AFEBRILE. HR AFLUTTER 110-120'S. BP STABLE. ON RA SATS OVER 95%. INDEPENDENT FOR ADLS, ABLE TO AMBULATE TO BATHROOM AND BACK. CALLS APPRORIATELY. IN BED SLEEPING WITH CALL ALARM AT SIDE. WILL CONTINUE TO MONITOR UNTIL REPORT GIVEN TO DAYSHIFT RN
[2021-08-24 05:07] LABS: Anion Gap 4 mmol/L (6-16); Blood Urea Nitrogen 39 mg/dL (8-24); Bun/Creatinine Ratio 29.5 (12.0-20.0); CO2, Blood 34 mmol/L (21-32); Chloride, Blood 95 mmol/L (98-108); Creatinine, Blood 1.32 mg/dL (0.60-1.20); Digoxin (Lanoxin) 0.93 ug/mL (0.80-2.00); Glomerular Filtration Rate 56 (60-); Glucose, Blood 172 mg/dL (70-99); Magnesium, Blood 1.6 mg/dL (1.6-2.4); Phosphorus, Blood 2.5 mg/dL (2.5-4.9); Potassium, Blood 4.2 mmol/L (3.5-5.5); Sodium, Blood 133 mmol/L (136-145)
--- NOTE | 2021-08-24 17:54 | NUR ---
SHIFT SUMMARY PT HAS BEEN RESTING IN ROOM, PT WILL GET UP AND AMBULATE SELF TO RESTROOM. PT HAS HAD NO COMPLAINTS OF PAIN OR DISCOMFORT. PT APPEARS WITHDRAWN AND STATES THAT THEY ARE "JUST READY TO GET OUT OF HERE." HEART RHYTHM AND RATE HAS MAINTAINED ATRIAL FLUTTER AT 120 BPM, THIS AM RATE WAS 110 FOR A SHORT TIME. ALL OTHER VITAL SIGNS STABLE, NO CHANGES TO CURRENT CONDITION.
[2021-08-25 05:20] LABS: Hematocrit 37.2 % (37.0-53.0); Hemoglobin 11.7 g/dL (13.5-17.5)
--- NOTE | 2021-08-25 05:32 | NUR ---
SHIFT SUMMMARY ALERT AND ORIENTED X4. AFEBRILE. ON RA SATS OVER 97%. HR AFLUTTER 110-120'S. BP STABLE. NO C/O DISCOMFORT, PAIN, OR SOB. REMAINS ON FLUID RESTRICTION. PICC LINE DDRAWS. INDEPENDENT FOR ADLS. FREQUENTLY HUNGRY. IN BED RESTING WITH CALL ALARM AT SIDE. WILL CONTINUE TO MONITOR UNTIL REPORT GIVEN TO KODY ORTIZ.
[2021-08-25 05:50] LABS: Albumin, Blood 2.1 g/dL (3.4-5.0); Anion Gap 5 mmol/L (6-16); Blood Urea Nitrogen 38 mg/dL (8-24); Bun/Creatinine Ratio 29.7 (12.0-20.0); CO2, Blood 32 mmol/L (21-32); Calcium, Blood 8.3 mg/dL (8.5-10.1); Chloride, Blood 97 mmol/L (98-108); Creatinine, Blood 1.28 mg/dL (0.60-1.20); Digoxin (Lanoxin) 1.13 ug/mL (0.80-2.00); Glomerular Filtration Rate 58 (60-); Glucose, Blood 149 mg/dL (70-99); Magnesium, Blood 1.7 mg/dL (1.6-2.4); Phosphorus, Blood 2.5 mg/dL (2.5-4.9); Potassium, Blood 4.5 mmol/L (3.5-5.5); Sodium, Blood 134 mmol/L (136-145)
--- NOTE | 2021-08-25 09:31 | NUR ---
AM NOTE: PATIENT ALERT AND ORIENTED. VERY QUIET AND WITHDRAWN. DENIES NUMBNESS/TINGLING. PERRLA. ABLE TO AMBULATE IND. ON ROOM AIR SATING MID 90'S. DENIES SOB. TELE SHOWING AFLUTTER WITH HR 100-120'S. DENIES CHEST PAIN/PRESSURE. BP STABLE. NO SIGNS OF EDEMA. DENIES ABDOMINAL PAIN/NAUSEA. TOELRATING PO DIET. FLUID RESTRICTION OF 1000ML DAILY. PILLS WHOLE WITH WATER. PICC LINE WNL, SALINE LOCKED. RIGHT IJ SITE WNL, DRESSING C/D/I. DENIES NEEDS AT THIS TIME. BROTHER IN TO VISIT THIS AM. CALL LIGHT IN REACH. RESTING AT THIS TIME. WILL CONTINUE TO MONITOR.
[2021-08-25] MEDS ORDERED: BUME2 PO (12:10)
[2021-08-25] MEDS ORDERED: BUSP5 PO (12:11)
[2021-08-25] MEDS ORDERED: DIGOX125 MC1 PO (12:11)
[2021-08-25] MEDS ORDERED: POTA10T PO (12:12)
--- NOTE | 2021-08-25 13:21 | NUR ---
DISCHARGE: NO ACUTE CHANGES. SEE PREVIOUS AM NOTE FOR UPDATES. VITALS REMAIN STABLE. HR UP TO 124 WHEN UP WALKING AROUND, REMAINS ASYMPTOMATIC. DR. GORDILLO IN TO DISCUSS DISCHARGE WITH PATIENT. DISCHARGE EDUCATION PROVIDED INCLUDING FOLLOW UP APPOINTEMTS, MEDICATIONS, VITAL SIGNS AND PICKING UP MEDICATIONS FROM PHARMACY. DISCUSSED IMPORTANCE OF FOLLOWING UP WITH DR. RODRIGUEZ, CARDIOLOGY AND PCP. PATIENT STATES HE DID NOT HAVE PCP. WORKED WITH [employer] TO CALL INSURANCE AND FIND PCP THROUGH [email or web address]. PATIENT TO CALL AND SCHEDULE APPOINTMENTS. STATES WHEN HE GETS HOME HE WILL CALL AND SCHEDULE ALL THREE. EACH MEDICATION REVIEWED. PATIENT AGREED TO GO TO PHARMACY ON WAY HOME TO MANAGER HOUSE NEW MEDICATIONS. VERBAL WELL WRITTEN EDUCATION PROVIDED ON MEDICATIONS. PICC LINED REMOVED WNL. PATIENT ABLE TO TEACH BACK FOLLOW UP APPOINTMENT, AND MEDICATIONS. LEFT UNIT VIA WHEELCHAIR WITH ALL PERSONAL BELONGINGS.
== END 2021-08-25 13:01 | disposition home or self-care (01) | DRG 280 ==
LOC: ER 22:02 → PCU 08-14 04:03 → ICUE 08-14 04:03 → PCU 08-14 04:15 → ICUE 08-15 15:05 → PCU 08-20 16:06
PROVIDERS: Family Medicine; Internal Medicine; Internal Medicine Interventional Cardiology; Internal Medicine Nephrology; Student in an Organized Health Care Education/Training Program; ADMIT Family Medicine
PROC: 3E033XZ Introduction of Vasopressor into Peripheral Vein, Percutaneous Approach (ICD-10-PCS; principal; 2021-08-15)
PROC: 02HV33Z Insertion of Infusion Device into Superior Vena Cava, Percutaneous Approach (ICD-10-PCS; 2021-08-15)
PROC: 02HV33Z Insertion of Infusion Device into Superior Vena Cava, Percutaneous Approach (ICD-10-PCS; 2021-08-16)
PROC: B548ZZA Ultrasonography of Superior Vena Cava, Guidance (ICD-10-PCS; 2021-08-16)
DX: I50.23 Acute on chronic systolic (congestive) heart failure (principal); K72.00 Acute and subacute hepatic failure without coma; I21.A1 Myocardial infarction type 2; I26.99 Other pulmonary embolism without acute cor pulmonale; J96.01 Acute respiratory failure with hypoxia; R57.0 Cardiogenic shock; I48.92 Unspecified atrial flutter; N17.9 Acute kidney failure, unspecified; E87.2 Acidosis; E87.1 Hypo-osmolality and hyponatremia; Z28.21 Immunization not carried out because of patient refusal; E87.6 Hypokalemia; E83.42 Hypomagnesemia; E83.39 Other disorders of phosphorus metabolism; I25.10 Atherosclerotic heart disease of native coronary artery without angina pectoris; E87.5 Hyperkalemia; I95.9 Hypotension, unspecified; E21.3 Hyperparathyroidism, unspecified; F41.9 Anxiety disorder, unspecified; N18.30 Chronic kidney disease, stage 3 unspecified; D63.1 Anemia in chronic kidney disease; Z91.14 Patient's other noncompliance with medication regimen; Z90.49 Acquired absence of other specified parts of digestive tract; Z72.89 Other problems related to lifestyle; Z87.891 Personal history of nicotine dependence; Z98.890 Other specified postprocedural states; Z79.01 Long term (current) use of anticoagulants; Z79.899 Other long term (current) drug therapy
CPT/HCPCS: 36415; 36556; 36569; 36600; 36620; 51703; 70450; 71045; 76770; 80048; 80053; 80069; 80074; 80076; 80162; 81001; 82330; 82803; 82947; 83036; 83605; 83735; 83880; 84100; 84132; 84439; 84443; 84484; 85014; 85018; 85025; 85520; 85730; 86317; 87086; 93005; 93010; 93308; 93321; 94660; 94762; 95819; 96365; 96366; 96375; 96376; 97110; 97112; 97116; 97140; 97162; 97530; 99285-25; A9270; C1751; C1752; J1250; J1644; J1940; J2060; J2405; J3475; J3480; J7040; J7060; J7070

== ENCOUNTER 2021-09-09 09:25 | Day surgery (SDC) | payer OTHER ==
[~2021-09-09] VITALS: Ht 188 cm; Wt 83.2 kg
[~2021-09-09 09:25] MED LIST changes: +BUME2 PO; +BUSP5 PO; +DIGOX125 MC1 PO; +POTA10T PO
[2021-09-09] MEDS ORDERED: B COMPLEX WITH1 EACH PO (10:13)
[2021-09-09] MEDS ORDERED: FOLIKA-NC TABL1 EACH PO (10:14)
--- NOTE | 2021-09-09 10:40 | NUR ---
0935 PATIENT BROUGHT TO THE PROCEDURE ROOM AND PREPPED FOR THE CARDIOVERSION. HISTORY OBTAINED. EKG PERFROMED. PLACED ON THE MONITOR AND PIV STARTED. PATIENT HAS BEEN NPO. MEDICATION RECONCILIATION PERFROMED. VVS. NO PAIN AT THIS TIME.
--- NOTE | 2021-09-09 10:46 | NUR ---
1029 PROCEDURE STARTED.DCCV PERFROMED AND PATIENT CONVERTED TO SINUS RHYTHM.
--- NOTE | 2021-09-09 11:13 | NUR ---
PATIETN IS AWAKE ADN NO PAIN NOTED FROM THE PATIENT. SINUS NOTED ON MELI MONITOR. PIV DISCONTINUED FROMT HE LEFT AC. CATH TIP INTACT. PRESSURE DRRESSING APPLIED TO THE LEFT AC SITE. NO BLEEDING NOTED.
--- NOTE | 2021-09-09 11:38 | NUR ---
PATIENT UP AND DRESSED AND GIVEN HIS DOSE OF AMIODARONE 200 MG ORAL FOR HIS MISSED DOSE THIS MORNING. REVIEWED HIS DISCHARGE INSTRUCTIONS AND GAVE COPIES OF INSTRUCTIONS. PATIENT WAS WHEELCHAIRED TO THE [place] ENTRANCE TO CATCH THE [facility] SERVICE.
== END 2021-09-09 22:52 | disposition home or self-care (01) ==
LOC: MHTC 09:25
DX: I48.92 Unspecified atrial flutter (principal)
CPT/HCPCS: 92960; 93005; 93010; A9270; J2704; J7030

== ENCOUNTER 2024-12-22 14:28 | Inpatient (IN) | payer OTHER ==
[~2024-12-22] VITALS: Ht 190.5 cm; Wt 86.1 kg
[~2024-12-22 14:28] MED LIST changes: +B COMPLEX WITH1 EACH PO; +FOLIKA-NC TABL1 EACH PO
[2024-12-22] MEDS ORDERED: Diltiazem HCl 5 MG / ML 5ML Vial IV ONE (15:15)
[2024-12-22 15:23] LABS: BASOPHILS ABSOLUTE AUTO 0.03 K/mm3 (0.00-0.23); BASOPHILS PERCENT AUTO 0 % (0-2); EOSINOPHILS ABSOLUTE AUTO 0.01 K/mm3 (0.00-0.68); EOSINOPHILS PERCENT AUTO 0 % (0-6); Hematocrit 47.7 % (37.0-53.0); Hemoglobin 16.9 g/dL (13.5-17.5); IMMATURE GRAN ABSOLUTE AUTO 0.04 K/mm3 (0.00-0.10); IMMATURE GRAN PERCENT AUTO 0 % (0-1); LYMPHOCYTES ABSOLUTE AUTO 1.08 K/mm3 (0.84-5.20); LYMPHOCYTES PERCENT AUTO 12 % (21-46); MONOCYTES ABSOLUTE AUTO 1.02 K/mm3 (0.16-1.47); MONOCYTES PERCENT AUTO 12 % (4-13); Mean Corpuscular HGB Conc 35.4 g/dL (31.5-36.5); Mean Corpuscular Volume 103 fL (80-100); NEUTROPHILS ABSOLUTE AUTO 6.71 K/mm3 (1.96-9.15); NEUTROPHILS PERCENT AUTO 76 % (41-73); NRBC ABSOLUTE 0.02 K/mm3 (0.00-0.02); NRBC Auto 0.2 /100 WBC (0.0-0.2); Platelet Count 231 K/mm3 (150-400); RDW Coefficient Variation 14.7 % (11.7-14.2); RDW Standard Deviation 54.1 fL (35.1-46.3)
[2024-12-22 15:49] LABS: Alanine Aminotransfer (ALT/SGP 99.0 U/L (12-78); Albumin, Blood 3.1 g/dL (3.4-5.0); Albumin/Globulin Ratio 0.7 (0.8-1.8); Anion Gap 20.0 mmol/L (3-11); Aspartate Aminotrans (AST/SGOT 167.0 U/L (12-37); Bilirubin, Total 3.9 mg/dL (0.1-1.0); Blood Urea Nitrogen 63.0 mg/dL (8-24); CO2, Blood 23.0 mmol/L (21-32); Calcium, Blood 8.9 mg/dL (8.5-10.1); Chloride, Blood 89.0 mmol/L (98-108); Creatinine, Blood 3.31 mg/dL (0.60-1.20); Globulin, Blood 4.7 g/dL (2.2-4.0); Glucose, Blood 193.0 mg/dL (70-99); Potassium, Blood 3.5 mmol/L (3.5-5.5); Sodium, Blood 128.0 mmol/L (136-145); Total Protein, Blood 7.8 g/dL (6.4-8.2)
[2024-12-22] MEDS ORDERED: Amiodarone HCl 450 MG in NS 250 ML IV SCH (18:35)
[2024-12-22 21:43] VITALS: BP 108/67
[2024-12-22 22:10] LABS: pH Blood Venous 7.44 (7.34-7.37)
[2024-12-22 23:50] VITALS: BP 106/87
[2024-12-23] VITALS (7 sets, daily range): BP systolic 100–132; BP diastolic 80–103
--- NOTE | 2024-12-23 02:54 | NUR ---
ASSUMPTION OF CARE REPORT RECIEVED FROM ER NURSE. PT TRANSFERED FROM ER TO PCU VIA [facility]. PT STOOD AND TRANSFERED FROM [facility] TO PCU BED. PT A&O X4, HE IS ABLE TO EXPRESS HIS NEEDS. HR IN THE 110'S-130'S, AFLUTTER. PT DENIED ANY CP/PRESSURE, NUMB/TINGLING, SBP SOFT IN THE 100'S, MAP >65. UNABLE TO PALPATE PEDAL PULSES, WAS ABLE TO FIND THEM WITH DOPPLER. PT ON RA SITTING IN THE 90'S. PER REPORT PT WAS HAVING INCREASED SOB, ORDER WAS PLACED FOR BIPAP IF SOB WORSENS. PT CURRENTLY ON BIPAP. HE HAS BILAT +3 PITTING EDEMA, LEFT LEG SLIGHTLY WEEPING. PT ON AMIO GTT, INFUSING PER EMAR. WILL MONITOR PT. CALL LIGHT IN REACH.
[2024-12-23 04:56] LABS: BASOPHILS ABSOLUTE AUTO 0.03 K/mm3 (0.00-0.23); BASOPHILS PERCENT AUTO 0 % (0-2); EOSINOPHILS ABSOLUTE AUTO 0.01 K/mm3 (0.00-0.68); EOSINOPHILS PERCENT AUTO 0 % (0-6); Hematocrit 52.0 % (37.0-53.0); Hemoglobin 17.9 g/dL (13.5-17.5); IMMATURE GRAN ABSOLUTE AUTO 0.07 K/mm3 (0.00-0.10); IMMATURE GRAN PERCENT AUTO 1 % (0-1); LYMPHOCYTES ABSOLUTE AUTO 1.30 K/mm3 (0.84-5.20); LYMPHOCYTES PERCENT AUTO 14 % (21-46); MONOCYTES ABSOLUTE AUTO 1.19 K/mm3 (0.16-1.47); MONOCYTES PERCENT AUTO 12 % (4-13); Mean Corpuscular HGB Conc 34.4 g/dL (31.5-36.5); Mean Corpuscular Volume 104 fL (80-100); NEUTROPHILS ABSOLUTE AUTO 7.03 K/mm3 (1.96-9.15); NEUTROPHILS PERCENT AUTO 73 % (41-73); NRBC ABSOLUTE 0.03 K/mm3 (0.00-0.02); NRBC Auto 0.3 /100 WBC (0.0-0.2); Platelet Count 236 K/mm3 (150-400); RDW Coefficient Variation 14.8 % (11.7-14.2); RDW Standard Deviation 55.5 fL (35.1-46.3)
[2024-12-23 05:41] LABS: Alanine Aminotransfer (ALT/SGP 295.0 U/L (12-78); Albumin, Blood 3.2 g/dL (3.4-5.0); Albumin/Globulin Ratio 0.6 (0.8-1.8); Anion Gap 20.0 mmol/L (3-11); Aspartate Aminotrans (AST/SGOT 889.0 U/L (12-37); Bilirubin, Total 6.8 mg/dL (0.1-1.0); Blood Urea Nitrogen 69.0 mg/dL (8-24); CO2, Blood 22.0 mmol/L (21-32); Calcium, Blood 9.2 mg/dL (8.5-10.1); Chloride, Blood 87.0 mmol/L (98-108); Creatinine, Blood 3.68 mg/dL (0.60-1.20); Globulin, Blood 5.5 g/dL (2.2-4.0); Glucose, Blood 255.0 mg/dL (70-99); Magnesium, Blood 2.2 mg/dL (1.6-2.4); Potassium, Blood 5.5 mmol/L (3.5-5.5); Sodium, Blood 123.0 mmol/L (136-145); Total Protein, Blood 8.7 g/dL (6.4-8.2)
[2024-12-23 06:13] LABS: pH Blood Arterial 7.51 (7.35-7.45)
--- NOTE | 2024-12-23 06:38 | NUR ---
SHIFT SUMMARY PT A&O X4. HE IS ABLE TO EXPRESS HIS NEEDS. CALLS APPROPRIATELY. PTS HR IN THE 120'S, HE DENIES ANY CP/PRESSURE, NUMB/TINGLING, SBP SOFT IN THE 100'S, MAP >65. PT O2 MONITOR SHOWING ANYWHERE FROM 1%-100%, TRIED MULTIPLE O2 MONITOR PROBES BUT NONE OF THEM APPEARED TO BE WORKING RIGHT. RT TO BEDSIDE, PT PLACED ON V60, 14/10, 50% FIO2. PT CYANOTIC IN HIS BLE AND BUE, HE REPORTS INTERMITTENT SOB FOR TH LAST FEW WEEKS, AND NOT FEELING LIKE HE CAN TAKE A FULL BREATH. CALL PLACED TO DR LANDA ASKING IF OKAY TO GET A VBG OR ABG, ABG COMPLETED. PT ALSO HAD OTHER MORNING LABS COME BACK TH [facility]. DR LANDA INFORMED, DR LANDA TO REVIEW. BLADDER SCAN COMPLETED THIS AM WITH ONLY 34ML'S IN THE BLADDER. PT STILL ON AMIO GTT, INFUSNG PER EMAR. PT ON V60 AT THIS TIME, SITTING UP IN BED. WILL MONITOR PT AND REPORT TO ONCOMING RN.
[2024-12-23] MEDS ORDERED: NS 1,000 ML IV SCH (08:00)
--- NOTE | 2024-12-23 08:02 | NUR ---
SPOKE WITH DR. HASTINGS REGARDING PT STATUS, REVIEWED LABS, MEDS, VITALS, ETC. DR. HASTINGS AND MYSELF IN ROOM WITH RT TO DISCUSS W/ PT AND CLARIFY SOME POINTS. PT NOTED HE HAS NOT TAKEN HOME MEDS "FOR A WHILE". DENIED METH USE FOR AT LEAST 1 YEAR. DENIED BEING HOMELESS. DR. HASTINGS TO ENTER APPROPRIATE ORDERS. ORDERED CARDIOLOGY CONSULT WHICH WAS CALLED INTO DR. FRANKLIN. VITALS STABLE AT THIS TIME, DIFFICULT TO OBTAIN GOOD PLETH BUT ABG THIS MORNING REFLECTS GOOD OXYGENATION. MOST RECENT BP 102/90 WITH MAP OF 95. AMIO DRIP CONTINUES TO RUN AT THIS TIME.
[2024-12-23] MEDS ORDERED: Folic Acid 1 MG TAB PO SCH (09:00)
[2024-12-23] MEDS ORDERED: Multivitamins 1 Tab PO SCH (09:00)
[2024-12-23 09:29] LABS: Alanine Aminotransfer (ALT/SGP 475.0 U/L (12-78); Albumin, Blood 3.5 g/dL (3.4-5.0); Albumin/Globulin Ratio 0.7 (0.8-1.8); Anion Gap 24.0 mmol/L (3-11); Aspartate Aminotrans (AST/SGOT 1577.0 U/L (12-37); Bilirubin, Total 7.2 mg/dL (0.1-1.0); Blood Urea Nitrogen 71.0 mg/dL (8-24); CO2, Blood 23.0 mmol/L (21-32); Calcium, Blood 9.8 mg/dL (8.5-10.1); Chloride, Blood 87.0 mmol/L (98-108); Creatinine, Blood 3.92 mg/dL (0.60-1.20); Globulin, Blood 5.2 g/dL (2.2-4.0); Glucose, Blood 190.0 mg/dL (70-99); Potassium, Blood 3.7 mmol/L (3.5-5.5); Sodium, Blood 130.0 mmol/L (136-145); Total Protein, Blood 8.7 g/dL (6.4-8.2)
[2024-12-23] MEDS ORDERED: Polyethylene Glycol 3350 17 gm PO PRN (09:30)
[2024-12-23] MEDS ORDERED: Isosorbide Mononitrate 30 MG TABCR PO SCH (10:00)
--- NOTE | 2024-12-23 10:52 | NUR ---
LATE NOTE. AFTER DISCUSSION WITH DR. HASTINGS, CALLED TO NOTIFY DR. RUSSO OF PLAN. DR. RUSSO REVIEWED CHART AND IN CONJUNCTION WITH DR. FRANKLIN MADE CAHNGES TO MEDICATIONS/PLAN OF CARE. V60 REMAINS IN PLACE FOR TIME BEING. AMIODARONE DRIP CONTINUES TO RUN. MORE RECENTLY, CALLED DR. RUSSO TO NOTIFY DURING FEATHER BONER UNABLE TO FIND R. PEDAL PULSE EVEN W/ DOPPLER. DR. RUSSO NOTIFIED ULTRASOUND WILL BE ORDERED FOR FURTHER EVALUATION.
--- NOTE | 2024-12-23 13:14 | NUR ---
PT HAS YET TO VOID THROUGHOUT SHIFT DESPITE SEVERAL ATTEMPTS AND 80 MG IV LASIX GIVEN THIS MORNING. BLADDER SCAN PERFORMED, 14 mls IN BLADDER. CALLED TO SPEAK W/ DR. RUSSO. DR. RUSSO TO INPUT APPROPRIATE ORDERS. NO DIRECTIONS AT THIS TIME.
[2024-12-23 15:00] LABS: U Amphetamine Screen Not Detected; U Barbituate Screen Not Detected; U Benzodiazapine Screen Not Detected; U Buprenorphine Screen Not Detected; U Cannabinoids Screen Not Detected; U Cocaine Screen Not Detected; U Methadone Screen Not Detected; U Methamphetamine Screen Not Detected; U Opiates Screen Not Detected; U Oxycodone Screen Not Detected; U Phencyclidine Screen Not Detected
--- NOTE | 2024-12-23 16:06 | NUR ---
SPOKE WITH DR. RUSSO. DIRECTED TO GIVE 1800 BUMEX NOW. DIRECTED TO TRY AND KEEP PT OFF OF BIPAP FOR TIME BEING AND STATED THAT IF PT NEEDS O2 SUPPORT OVERNIGHT TO UTILIZE CPAP RATHER THAN BIPAP. BUMEX GIVEN. PT REPORTS FEELING "OKAY" AND DENIES ANY PAIN. VITALS STABLE. CONTINUES TO HAVE NO URINE OUTPUT, HARRIS IN PLACE.
--- NOTE | 2024-12-23 16:58 | NUR ---
SHIFT SUMMARY. SHIFT HAS BEEN SOMEWHAT EVENTFUL WITH MULTIPLE CONVERSATIONS WITH DR. RUSSO, DR. HASTINGS, AND DR. FRANKLIN. SEE PREVIOUS NOTES FOR EXPANDED DETAILS. AWAITING DR. CASTANEDA TO ROUND ON PATIENT. ECHO PLANNED TO BE COMPLETED 12/24 PER BUSINESS ASST. PT HAS DENIED PAIN THROUGHOUT SHIFT, VITALS HAVE REMAINED STABLE. ABLE TO MAINTAIN ADEQUATE SATURATION ON 1 L O2 VIA NC WHILE AWAKE. NOTIFIED RT THAT PER DR. RUSSO IF PT NEEDS O2 SUPPORT WHILE SLEEPING TO USE CPAP OVER BIPAP. HR HAS TRENDED DOWN LATER THIS AFTERNOON TO 110s-120s FROM EARLIER RATE OF 130s-140s. PT STILL HAS YET TO VOID, DR. RUSSO AWARE. HARRIS REMAINS IN PLACE. BED LOCKED IN LOWEST POSITION. CALL LIGHT LEFT WITHIN REACH.
[2024-12-23] MEDS ORDERED: Darbepoetin (Pharmacy Consult) SC SCH (18:50)
[2024-12-24] VITALS (14 sets, daily range): BP systolic 94–133; BP diastolic 65–115
--- NOTE | 2024-12-24 00:03 | NUR ---
ASSUMPTION OF CARE PT A&O X4, HE IS ABLE TO EXPRESS HIS NEEDS. CALLS APPROPRIATELY. HR IN THE 110'S-120'S, AFIB. HE DENIES ANY CP/PRESSURE, NUMB/TINGLING, SBP STABLE. PT ON 1L VIA NC WHILE AWAKE. HE HAS INTERMITTENT SOB, RR IN THE 20'S, SHALLOW. O2 READING IN THE 90'S. HE HAS +3 PITTING EDEMA IN HIS BLE, SLIGHT WEEPING IN THE LLE. HE IS CYANOTIC IN HIS BILAT HANDS (SLIGHT IMPROVEMENT FROM LAST NIGHT) AND BILATERAL FEET, COOL TO TOUCH. DOPPLER USED TO LOCATE PEDAL PULSES. HE DENIES ANY PAIN. HARRIS CATH PLACED DURING DAY SHIFT, PATENT, DRAINING TO GRAVITY. PY HAS HAD 500ML OUT THIS SHIFT, CLOSING WATCHING URINE OUTPUT PATIENT HAS NOT HAD MUCH AND IS RECIEVING DIURETICS. PT UP AT BSC AT THIS TIME. CALL LIGHT IN REACH.
[2024-12-24 04:38] LABS: BASOPHILS ABSOLUTE AUTO 0.02 K/mm3 (0.00-0.23); BASOPHILS PERCENT AUTO 0 % (0-2); EOSINOPHILS ABSOLUTE AUTO 0.02 K/mm3 (0.00-0.68); EOSINOPHILS PERCENT AUTO 0 % (0-6); Hematocrit 48.6 % (37.0-53.0); Hemoglobin 16.8 g/dL (13.5-17.5); IMMATURE GRAN ABSOLUTE AUTO 0.07 K/mm3 (0.00-0.10); IMMATURE GRAN PERCENT AUTO 1 % (0-1); LYMPHOCYTES ABSOLUTE AUTO 1.20 K/mm3 (0.84-5.20); LYMPHOCYTES PERCENT AUTO 11 % (21-46); MONOCYTES ABSOLUTE AUTO 0.65 K/mm3 (0.16-1.47); MONOCYTES PERCENT AUTO 6 % (4-13); Mean Corpuscular HGB Conc 34.6 g/dL (31.5-36.5); Mean Corpuscular Volume 103 fL (80-100); NEUTROPHILS ABSOLUTE AUTO 9.36 K/mm3 (1.96-9.15); NEUTROPHILS PERCENT AUTO 83 % (41-73); NRBC ABSOLUTE 0.02 K/mm3 (0.00-0.02); NRBC Auto 0.2 /100 WBC (0.0-0.2); Platelet Count 239 K/mm3 (150-400); RDW Coefficient Variation 14.6 % (11.7-14.2); RDW Standard Deviation 54.1 fL (35.1-46.3)
[2024-12-24 05:00] LABS: Albumin, Blood 3.3 g/dL (3.4-5.0); Anion Gap 16 mmol/L (3-11); Blood Urea Nitrogen 80 mg/dL (8-24); CO2, Blood 30 mmol/L (21-32); Calcium, Blood 8.9 mg/dL (8.5-10.1); Chloride, Blood 87 mmol/L (98-108); Creatinine, Blood 4.64 mg/dL (0.60-1.20); Glucose, Blood 146 mg/dL (70-99); Magnesium, Blood 2.1 mg/dL (1.6-2.4); Phosphorus, Blood 7.0 mg/dL (2.5-4.9); Potassium, Blood 3.5 mmol/L (3.5-5.5); Sodium, Blood 129 mmol/L (136-145)
--- NOTE | 2024-12-24 06:12 | NUR ---
SHIFT SUMMARY PT A&O X4, CALM, COOPERATIVE TO CARE. HE IS ABLE TO MAKE HIS NEEDS KNOWN. HR IN THE 100'S, INCREASES TO THE 120'S WITH EXERTION. HE DENIES CP/PRESSURE, NUMB/TINGLING, SBP STABLE. O2 >92% ON 2L VIA NC. RR IN THE 20'S T/O NIGHT, SOME SOB AT REST BUT MAINLY WITH EXERTION AND GETTING UP TO BEDSIDE COMMODE. CONTINUES TO HAVE PITTING EDEMA IN BLE'S. PT HAS HARRIS IN PLACE. DRAINING DARK YELLOW URINE. PT HAD 1575MLS OUT T/O NIGHT. NEPHRO AND CARDIOLOGY FOLLOWING CASE. PT RESTING IN BED AT THIS TIME. CALL LIGHT IN REACH. WILL MONITOR PT AND REPORT TO ONCOMING RN.
--- NOTE | 2024-12-24 15:25 | NUR ---
PT HR HAS BEEN STEADILY INCREASING SINCE ABOUT LUNCH TIME. THIS MORNING, PT WAS SUSTAINING IN THE 100s-110s RANGE, NOW MORESO RUNNING IN THE 110s-120s RANGE OCCASIONALLY TOUCHING AND HOLDING IN THE 130s-140s. CALLED DR. FRANKLIN TO DISCUSS, ALSO REVIEWED MOST RECENT VITALS. PER DR. FRANKLIN, NO NEED FOR INTERVENTION AT THIS TIME. LIMITED OPTIONS AVAILABLE D/T LIVER AND RENAL DYSFUNCTION. MILDLY ELEVATED HR MAY BE BENEFICIAL IN REGARDS TO CARDIAC OUTPUT SO LONG PT REMAINS ASYMPTOMATIC. CONTINUING TO MONITOR.
[2024-12-24 16:38] LABS: Albumin, Blood 3.1 g/dL (3.4-5.0); Anion Gap 17 mmol/L (3-11); Blood Urea Nitrogen 88 mg/dL (8-24); CO2, Blood 32 mmol/L (21-32); Calcium, Blood 9.0 mg/dL (8.5-10.1); Chloride, Blood 84 mmol/L (98-108); Creatinine, Blood 4.36 mg/dL (0.60-1.20); Glucose, Blood 177 mg/dL (70-99); Phosphorus, Blood 5.2 mg/dL (2.5-4.9); Potassium, Blood 3.2 mmol/L (3.5-5.5); Sodium, Blood 130 mmol/L (136-145)
--- NOTE | 2024-12-24 16:41 | NUR ---
SHIFT SUMMARY/TRANSFER OF CARE NOTE. PT HAS DONE WELL THROUGHOUT DAY. AOX4, PLEASANT, COOPERATIVE, ABLE TO MAKE NEEDS KNOWN. HAS DENIED PAIN THROUGHOUT SHIFT OUTSIDE OF TENDERNESS IN BLE. LEGS ARE PROGRESSIVELY LESS EDEMATOUS THAN THEY WERE DURING PREVIOUS SHIFT WITH THIS RN. PT HAS HAD CONSISTENT URINE OUTPUT ALL DAY LONG, SEE I+Os FOR DETAILS. HARRIS DRAINING TO GRAVITY WITH NO COMPLAINTS OF PAIN/PRESSURE. VITALS STABLE, MAINTAINING ADEQUATE SATURATION ON ROOM AIR THROUGHOUT SHIFT. HR HAS BEEN SOMEWHAT ELEVATED THIS AFTERNOON, SEE PREVIOUS NOTE FOR DETAILS. 1PA TRANSFER TO [facility]. SHIFT OTHERWISE HAS GONE WELL THUS FAR. BED LOCKD IN LOWEST POSITION. CALL LGIHT LEFT WTIHIN REACH.
[2024-12-24] MEDS ORDERED: Potassium Chloride 10 Meq Tablet SA PO ONE (16:50)
[2024-12-24] MEDS ORDERED: Isosorbide Mononitrate 60 MG TABCR PO SCH ×2 (21:00)
[2024-12-25] VITALS (9 sets, daily range): BP systolic 93–177; BP diastolic 59–138
[2024-12-25 03:56] LABS: BASOPHILS ABSOLUTE AUTO 0.02 K/mm3 (0.00-0.23); BASOPHILS PERCENT AUTO 0 % (0-2); EOSINOPHILS ABSOLUTE AUTO 0.03 K/mm3 (0.00-0.68); EOSINOPHILS PERCENT AUTO 0 % (0-6); Hematocrit 47.5 % (37.0-53.0); Hemoglobin 16.7 g/dL (13.5-17.5); IMMATURE GRAN ABSOLUTE AUTO 0.05 K/mm3 (0.00-0.10); IMMATURE GRAN PERCENT AUTO 1 % (0-1); LYMPHOCYTES ABSOLUTE AUTO 0.79 K/mm3 (0.84-5.20); LYMPHOCYTES PERCENT AUTO 8 % (21-46); MONOCYTES ABSOLUTE AUTO 0.73 K/mm3 (0.16-1.47); MONOCYTES PERCENT AUTO 8 % (4-13); Mean Corpuscular HGB Conc 35.2 g/dL (31.5-36.5); Mean Corpuscular Volume 101 fL (80-100); NEUTROPHILS ABSOLUTE AUTO 8.16 K/mm3 (1.96-9.15); NEUTROPHILS PERCENT AUTO 83 % (41-73); NRBC ABSOLUTE 0.00 K/mm3 (0.00-0.02); NRBC Auto 0.0 /100 WBC (0.0-0.2); Platelet Count 244 K/mm3 (150-400); RDW Coefficient Variation 14.2 % (11.7-14.2); RDW Standard Deviation 51.6 fL (35.1-46.3)
[2024-12-25 04:25] LABS: Albumin, Blood 3.0 g/dL (3.4-5.0); Anion Gap 13 mmol/L (3-11); Blood Urea Nitrogen 87 mg/dL (8-24); CO2, Blood 35 mmol/L (21-32); Calcium, Blood 8.7 mg/dL (8.5-10.1); Chloride, Blood 83 mmol/L (98-108); Creatinine, Blood 3.94 mg/dL (0.60-1.20); Glucose, Blood 243 mg/dL (70-99); Phosphorus, Blood 4.4 mg/dL (2.5-4.9); Potassium, Blood 3.1 mmol/L (3.5-5.5); Sodium, Blood 128 mmol/L (136-145)
--- NOTE | 2024-12-25 05:06 | NUR ---
SHIFT SUMMARY NO ACUTE EVENTS OVERNIGHT. PT CONTINUES TO BE ON TELE IN AFIB 100s-130s. PT ASYMPTOMATIC THROUGHOUT NIGHT. VSS ON RA >92%. PT HAD VERY LARGE AMOUNTS OF URINE OUTPUT, SEE CHART FOR ACCURATE I&Os. PT STATED SEVERAL TIMES THROUGHOUT NIGHT THAT HE HAD SUDDEN URGENCY TO HAVE A BM AND EVERY TIME THE PT WOULD SIT ON THE COMMODE HE WOULD ONLY PRODUCE THE SMALLEST AMOUNT OF CLEAR MUCOUS AND THE URGE WOULD GO AWAY. OTHERWISE NO FURTHER QUESTIONS OR CONCERNS AT THIS TIME. WILL CONTINUE WITH PLAN OF CARE. CALL LIGHT WITHIN REACH.
[2024-12-25] MEDS ORDERED: Potassium Chloride 10 Meq Tablet SA PO SCH ×2 (08:00→21:00)
--- NOTE | 2024-12-25 11:29 | NUR ---
THIS RN PAGED DR. FRANKLIN ABOUT ONGOING HYPERTENSION AND AFIB RVR. METOPROLOL XL CHANGED TO 50MG BID, WITH A 25MG DOSE NOW. NORVASC 5MG BID WAS STARTED WITH FIRST DOSE NOW. SEE NOTES FOR UPDATES.
[2024-12-25] MEDS ORDERED: Insulin Regular 100 UNIT/ML 10ML Vial SC SCH (11:30)
--- NOTE | 2024-12-25 12:24 | NUR ---
MORNING SUMMARY THE PT IS A&OX4, 1P ASSIST FOR TX, AND CONTINUES TO HAVE A BEDALARM IN USE. HE HAS A HARRIS DRAINING TO GRAVITY D/T STRICT I&O'S AND HEAVY DIURESIS. THE PT HAS HAD A SMALL BOWEL MOVMENT THIS MORNING ON THE [facility]. ON TELE HE HAS BEEN AFIB RVR 100'S-140'S. HIS METOPROLOL WAS INCREASED PER DR. FRANKLIN. SEE PREVIOUS NOTE. THE PT HAS HAD ONGOING HYPERTESNION T/O THE SHIFT. THIS RN TRIALED MULTIPLE BP CUFFS AND MULTIPLE SITES ON THE PT. D.T PERSISTANT HYPERTENSION, DR. FRANKLIN STARTED THE PT ON NORVASC. SEE PREVIOUS NOTE. HE DENIES ANY ANGINA OR CHEST PRESSURE. HE HAS BEEN ON RA T/O THE MORNING, EVEN WHILE TAKING NAPS, AND SP02 >93% AND HE DENIES ANY SOB. THE PT HAD BLOOD SUGAR CHECKS ADDED TO HIS PLAN OF CARE. INSULIN GIVEN PER SLIDING SCALE. BED ALARM IN PLACE. SEE NOTES FOR UPDATES.
[2024-12-25 13:38] LABS: Anion Gap 17.0 mmol/L (3-11); Blood Urea Nitrogen 90.0 mg/dL (8-24); CO2, Blood 36.0 mmol/L (21-32); Calcium, Blood 9.4 mg/dL (8.5-10.1); Chloride, Blood 80.0 mmol/L (98-108); Creatinine, Blood 3.7 mg/dL (0.60-1.20); Glucose, Blood 290.0 mg/dL (70-99); Potassium, Blood 3.3 mmol/L (3.5-5.5); Sodium, Blood 130.0 mmol/L (136-145)
[2024-12-25 13:59] LABS: Alanine Aminotransfer (ALT/SGP 1269.0 U/L (12-78); Albumin, Blood 3.1 g/dL (3.4-5.0); Albumin/Globulin Ratio 0.7 (0.8-1.8); Aspartate Aminotrans (AST/SGOT 1736.0 U/L (12-37); Bilirubin, Direct 2.5 mg/dL (0.0-0.3); Bilirubin, Indirect 1.2 mg/dL (0.1-0.7); Bilirubin, Total 3.7 mg/dL (0.1-1.0); Globulin, Blood 4.4 g/dL (2.2-4.0); Total Protein, Blood 7.5 g/dL (6.4-8.2)
[2024-12-25] MEDS ORDERED: Potassium Chloride 10 Meq Tablet SA PO ONE (14:00)
--- NOTE | 2024-12-25 17:00 | NUR ---
THIS RN CALLED DR. FRANKLIN ABOUT PT'S BLOOD PRESSURE DIFFERENCE FROM A MANNUAL AND THE BEDSIDE MACHINE, DESPITE DIFFERENT CUFFS AND TAKING IT ON BOTH ARMS. THIS RN SHARED CONCERNS THAT THIS ADMISSION THE PT'S BLOOD PRESSURE HAS BEEN RECORDERED/ASSESSED WITH THE MACHINE AND IT IS VERY DIFFERENT THEN TAKING IT MANNUALLY. THE NORVASC WAS D/C'D FOR NOW, AND AN ORDER FOR MANNUAL BLOOD PRESSURES ONLY WAS PLACED. THIS WAS DISCUSSED WITH BANKRUPTCY PROCESSOR. SEE NOTES FOR ANY UPDATES.
[2024-12-25] MEDS ORDERED: Isosorbide Mononitrate 60 MG TABCR PO SCH (21:00)
[2024-12-26 03:23] VITALS: BP 98/56
[2024-12-26 03:29] LABS: Hematocrit 48.2 % (37.0-53.0); Hemoglobin 16.6 g/dL (13.5-17.5)
[2024-12-26 03:54] LABS: Alanine Aminotransfer (ALT/SGP 971.0 U/L (12-78); Albumin, Blood 3.0 g/dL (3.4-5.0); Albumin/Globulin Ratio 0.6 (0.8-1.8); Anion Gap 12.0 mmol/L (3-11); Aspartate Aminotrans (AST/SGOT 1064.0 U/L (12-37); Bilirubin, Direct 2.3 mg/dL (0.0-0.3); Bilirubin, Indirect 1.4 mg/dL (0.1-0.7); Bilirubin, Total 3.7 mg/dL (0.1-1.0); Blood Urea Nitrogen 96.0 mg/dL (8-24); CO2, Blood 39.0 mmol/L (21-32); Calcium, Blood 9.0 mg/dL (8.5-10.1); Chloride, Blood 79.0 mmol/L (98-108); Creatinine, Blood 3.55 mg/dL (0.60-1.20); Globulin, Blood 4.9 g/dL (2.2-4.0); Glucose, Blood 282.0 mg/dL (70-99); Magnesium, Blood 1.5 mg/dL (1.6-2.4); Phosphorus, Blood 4.3 mg/dL (2.5-4.9); Potassium, Blood 2.6 mmol/L (3.5-5.5); Sodium, Blood 127.0 mmol/L (136-145); Total Protein, Blood 7.9 g/dL (6.4-8.2)
--- NOTE | 2024-12-26 05:15 | NUR ---
PHYSICIAN COMMUNICATION CONTACTED DR RODRIGUEZ TO INFORM HIM THAT THE PATIENT'S POTASSIUM WAS 2.[address] RODRIGUEZ ORDERED 40 MG IV AND 40 MG PO POTASSIUM AND SAID TO HOLD THE PATIENT'S BUMEX FOR NOW.
[2024-12-26] MEDS ORDERED: Magnesium Sulf 2 GM/Water 50ML 50 ML IV ONE ×2 (06:35→16:35)
--- NOTE | 2024-12-26 06:39 | NUR ---
SHIFT SUMMARY PATIENT ALERT AND ORIENTED X4. HAD NO COMPLAINTS OF PAIN OR SHORTNESS OF BREATH. ON ROOM AIR WITH SPO2 >90%. BLOOD PRESSURE STABLE, CONTINUES IN AFIB RATE CRENTLY CONTROLLED IN THE 90'S. ORDERS INPUT PER DR RODRIGUEZ. WILL CONTINUE TO MONITOR. CALL LIGHT WITHIN REACH.
[2024-12-26] MEDS ORDERED: Mag Sulfate 1 GM/D5% 100ML 100 ML IV ONE (06:45)
[2024-12-26 07:14] LABS: Alanine Aminotransfer (ALT/SGP 986.0 U/L (12-78); Albumin, Blood 3.2 g/dL (3.4-5.0); Albumin/Globulin Ratio 0.6 (0.8-1.8); Anion Gap 12.0 mmol/L (3-11); Aspartate Aminotrans (AST/SGOT 1000.0 U/L (12-37); Bilirubin, Direct 2.4 mg/dL (0.0-0.3); Bilirubin, Indirect 1.3 mg/dL (0.1-0.7); Bilirubin, Total 3.7 mg/dL (0.1-1.0); Blood Urea Nitrogen 93.0 mg/dL (8-24); CO2, Blood 42.0 mmol/L (21-32); Calcium, Blood 8.9 mg/dL (8.5-10.1); Chloride, Blood 77.0 mmol/L (98-108); Creatinine, Blood 3.55 mg/dL (0.60-1.20); Globulin, Blood 5.0 g/dL (2.2-4.0); Glucose, Blood 229.0 mg/dL (70-99); Magnesium, Blood 1.7 mg/dL (1.6-2.4); Potassium, Blood 2.7 mmol/L (3.5-5.5); Sodium, Blood 128.0 mmol/L (136-145); Total Protein, Blood 8.2 g/dL (6.4-8.2)
[2024-12-26] MEDS ORDERED: Insulin Regular 100 UNIT/ML 10ML Vial SC SCH (07:30)
[2024-12-26 08:36] VITALS: BP 122/70
[2024-12-26 11:45] VITALS: BP 130/68
[2024-12-26 15:29] VITALS: BP 132/68
[2024-12-26 15:44] LABS: Albumin, Blood 3.0 g/dL (3.4-5.0); Anion Gap 12 mmol/L (3-11); Blood Urea Nitrogen 95 mg/dL (8-24); CO2, Blood 38 mmol/L (21-32); Calcium, Blood 9.1 mg/dL (8.5-10.1); Chloride, Blood 81 mmol/L (98-108); Creatinine, Blood 3.14 mg/dL (0.60-1.20); Glucose, Blood 226 mg/dL (70-99); Phosphorus, Blood 3.9 mg/dL (2.5-4.9); Potassium, Blood 3.0 mmol/L (3.5-5.5); Sodium, Blood 128 mmol/L (136-145)
[2024-12-26] MEDS ORDERED: Insulin Human Lispro 100 Units/ML 3ML Syringe SC SCH (16:30)
--- NOTE | 2024-12-26 18:13 | NUR ---
PT IS A&Ox4 AND ABLE TO MAKE NEEDS KNOWN. HE IS ON RA W/O2 SATS >90%. HE IS A x1 ASSIST TO THE BSC. HARRIS IN PLACE DRAINING YELLOW URINE TO GRAVITY. MAG AND K+ REPLACED TODAY AND DR. RODRIGUEZ NOTIFIED OF LAB RESULTS AFTER REPLACEMENT. NO NEEDS OR CONCERNS NOTED @ THIS TIME. BED IN LOW POSITION, BED ALARM ON, CALL LIGHT AND PERSONAL BELONGINGS IN REACH.
[2024-12-26 20:43] VITALS: BP 124/68
[2024-12-26 23:39] VITALS: BP 122/64
[2024-12-27] VITALS (7 sets, daily range): BP systolic 98–132; BP diastolic 56–89
[2024-12-27 04:09] LABS: Hematocrit 49.8 % (37.0-53.0); Hemoglobin 17.8 g/dL (13.5-17.5)
[2024-12-27 04:28] LABS: Alanine Aminotransfer (ALT/SGP 730.0 U/L (12-78); Albumin, Blood 2.8 g/dL (3.4-5.0); Albumin/Globulin Ratio 0.5 (0.8-1.8); Anion Gap 13.0 mmol/L (3-11); Aspartate Aminotrans (AST/SGOT 538.0 U/L (12-37); Bilirubin, Direct 1.8 mg/dL (0.0-0.3); Bilirubin, Indirect 2.2 mg/dL (0.1-0.7); Bilirubin, Total 4.0 mg/dL (0.1-1.0); Blood Urea Nitrogen 90.0 mg/dL (8-24); CO2, Blood 32.0 mmol/L (21-32); Calcium, Blood 8.6 mg/dL (8.5-10.1); Chloride, Blood 83.0 mmol/L (98-108); Creatinine, Blood 2.73 mg/dL (0.60-1.20); Globulin, Blood 5.4 g/dL (2.2-4.0); Glucose, Blood 289.0 mg/dL (70-99); Magnesium, Blood 2.3 mg/dL (1.6-2.4); Phosphorus, Blood 4.0 mg/dL (2.5-4.9); Potassium, Blood 3.5 mmol/L (3.5-5.5); Sodium, Blood 124.0 mmol/L (136-145); Total Protein, Blood 8.2 g/dL (6.4-8.2)
--- NOTE | 2024-12-27 06:09 | NUR ---
SHIFT SUMMARY PATIENT ALERT AND ORIENTED X4. HAD NO COMPLAINTS OF PAIN OR SHORTNESS OF BREATH. ON ROOM AIR WITH SPO2 >90%. VITAL SIGNS STABLE. NO ACUTE ISSUES NOTED OVERNIGHT. WILL CONTINUE TO MONITOR. CALL LIGHT WITHIN REACH.
[2024-12-27] MEDS ORDERED: Insulin Human Lispro 100 Units/ML 3ML Syringe SC SCH ×2 (07:30→08:30)
[2024-12-27] MEDS ORDERED: Potassium Chloride 10 Meq Tablet SA PO SCH (09:00)
--- NOTE | 2024-12-27 16:09 | NUR ---
PT IS A&Ox4 AND ABLE TO MAKE NEEDS KNOWN. HE IS ON RA W/O2 SATS > 90%. HE IS A x1 ASSIST W/FWW FOR AMBULATION. USES THE URINAL AND BSC FOR BATHROOM. NO NEEDS OR CONCERNS NOTED @ THIS TIME. BED IN LOW POSITION, BED ALARM ON, CALL LIGHT AND PERSONAL BELONGINGS IN REACH.
[2024-12-27] MEDS ORDERED: Insulin Glargine-Yfgn 100 Unit/mL 3 ML SYR SC SCH (21:00)
[2024-12-28 04:20] VITALS: BP 112/66
[2024-12-28 04:49] LABS: Hematocrit 50.7 % (37.0-53.0); Hemoglobin 18.1 g/dL (13.5-17.5)
[2024-12-28 05:16] LABS: Alanine Aminotransfer (ALT/SGP 511.0 U/L (12-78); Albumin, Blood 2.9 g/dL (3.4-5.0); Albumin/Globulin Ratio 0.6 (0.8-1.8); Anion Gap 13.0 mmol/L (3-11); Aspartate Aminotrans (AST/SGOT 298.0 U/L (12-37); Bilirubin, Direct 2.8 mg/dL (0.0-0.3); Bilirubin, Indirect 1.6 mg/dL (0.1-0.7); Bilirubin, Total 4.4 mg/dL (0.1-1.0); Blood Urea Nitrogen 87.0 mg/dL (8-24); CO2, Blood 38.0 mmol/L (21-32); Calcium, Blood 8.8 mg/dL (8.5-10.1); Chloride, Blood 81.0 mmol/L (98-108); Creatinine, Blood 2.66 mg/dL (0.60-1.20); Globulin, Blood 5.2 g/dL (2.2-4.0); Glucose, Blood 183.0 mg/dL (70-99); Magnesium, Blood 2.0 mg/dL (1.6-2.4); Phosphorus, Blood 4.8 mg/dL (2.5-4.9); Potassium, Blood 2.7 mmol/L (3.5-5.5); Sodium, Blood 129.0 mmol/L (136-145); Total Protein, Blood 8.1 g/dL (6.4-8.2)
[2024-12-28] MEDS ORDERED: Potassium Chloride 10 Meq Tablet SA PO ONE (05:25)
--- NOTE | 2024-12-28 05:32 | NUR ---
SHIFT SUMMARY PATIENT ALERT AND ORIENTED X4. HAD NO COMPLAINTS OF PAIN OR SHORTNESS OF BREATH. ON ROOM AIR WITH SPO2 >90%. AFIB ON TELE WITH RATE BETWEEN 90-110. NOTIFIED DR RODRIGUEZ OF MORNING LAB RESULTS. WILL CONTINUE TO MONITOR. CALL LIGHT WITHIN REACH.
[2024-12-28 08:38] VITALS: BP 98/68
[2024-12-28] MEDS ORDERED: Potassium Chloride 10 Meq Tablet SA PO SCH (09:00)
[2024-12-28 11:29] VITALS: BP 104/54
--- NOTE | 2024-12-28 13:05 | NUR ---
pt set off bed alarm while tranfering himself from bed to bsc. This RN to room to assist. Pt instructed to use call light when needing to get up. Primary RN notified of pt transfering to bsc and output.
[2024-12-28 14:53] VITALS: BP 106/60
--- NOTE | 2024-12-28 17:42 | NUR ---
SHIFT SUMMARY. SHIFT HAS GONE WELL OVERALL. PT AOX3-4, COOPERATIVE, ABLE TO MAKE NEEDS KNOWN. PT CONTINUES TO RUN IN THE 100s-130s RANGE THIS AFTERNOON, GAVE [address] EARLY PER [address] RUSSO, SEE CHARTING FOR DETAILS. BP HAS BEEN SOFT THROUGHOUT SHIFT BUT MAP HAS REMAINED >65. HAS MAINTAINED ADEQUATE SATURATION ON ROOM AIR THOUGHOUT SHIFT. HAS DENIED PAIN. URINE OUPUT HAS BEEN CONSISTENT, CHARTED APPROPRIATELY. HELD [address] RODRIGUEZ[address] SHIFT OTHERWISE UNREMARKABLE. BED LOCKED IN LOWEST POSITION. CALL LIGHT LEFT WITHIN REACH.
--- NOTE | 2024-12-28 18:34 | NUR ---
spoke with dr. neville, pt continues to run hr in the 110s-130s, occasionally touching 140s. no other changes. pt feels asymptomatic. no need for concern unless pt sustains >[address] neville or if he becomes symptomatic. continuing to monitor.
[2024-12-28 20:13] VITALS: BP 113/97
[2024-12-29 00:22] VITALS: BP 106/74
[2024-12-29 03:48] VITALS: BP 96/71
[2024-12-29 04:21] LABS: Alanine Aminotransfer (ALT/SGP 403.0 U/L (12-78); Albumin, Blood 2.8 g/dL (3.4-5.0); Albumin/Globulin Ratio 0.5 (0.8-1.8); Aspartate Aminotrans (AST/SGOT 207.0 U/L (12-37); Bilirubin, Direct 2.6 mg/dL (0.0-0.3); Bilirubin, Indirect 2.2 mg/dL (0.1-0.7); Bilirubin, Total 4.8 mg/dL (0.1-1.0); Globulin, Blood 5.4 g/dL (2.2-4.0); Total Protein, Blood 8.2 g/dL (6.4-8.2)
--- NOTE | 2024-12-29 04:31 | NUR ---
SHIFT SUMMARY: PATIENT IS A&OX4. VITALS ARE STABLE AND IS ON ROOM AIR WITH >90% OXYGEN SATS. TELE SHOWS AFIB WITH HR BETWEEN LOW 100'S - 120'S BPM. HR ELEVATES >120 BPM WHEN PATIENT AMBULATES, BUT ONCE PATIENT IS AT REST HIS HR LOWERS BACK TO ABOVE RANGE. PATIENT IS A SBA TO [facility] [place] - HE IS VOIDING AND HAD X2 SMALL BM'S. HEART HEALTHY DIET WITH 1L FLUID RESTRICTION. STRICT I&O'S PER ORDERS. PATIENT INDEP. REPOSITIONS HIMSELF IN BED. PATIENT CALLS APPROPRIATELY WITH CALL LIGHT IN REACH.
[2024-12-29 06:07] LABS: BASOPHILS ABSOLUTE AUTO 0.03 K/mm3 (0.00-0.23); BASOPHILS PERCENT AUTO 0 % (0-2); EOSINOPHILS ABSOLUTE AUTO 0.11 K/mm3 (0.00-0.68); EOSINOPHILS PERCENT AUTO 1 % (0-6); Hematocrit 52.0 % (37.0-53.0); Hemoglobin 18.2 g/dL (13.5-17.5); IMMATURE GRAN ABSOLUTE AUTO 0.04 K/mm3 (0.00-0.10); IMMATURE GRAN PERCENT AUTO 0 % (0-1); LYMPHOCYTES ABSOLUTE AUTO 1.18 K/mm3 (0.84-5.20); LYMPHOCYTES PERCENT AUTO 11 % (21-46); MONOCYTES ABSOLUTE AUTO 1.24 K/mm3 (0.16-1.47); MONOCYTES PERCENT AUTO 12 % (4-13); Mean Corpuscular HGB Conc 35.0 g/dL (31.5-36.5); Mean Corpuscular Volume 103 fL (80-100); NEUTROPHILS ABSOLUTE AUTO 7.95 K/mm3 (1.96-9.15); NEUTROPHILS PERCENT AUTO 75 % (41-73); NRBC ABSOLUTE 0.00 K/mm3 (0.00-0.02); NRBC Auto 0.0 /100 WBC (0.0-0.2); Platelet Count 254 K/mm3 (150-400); RDW Coefficient Variation 14.5 % (11.7-14.2); RDW Standard Deviation 54.5 fL (35.1-46.3)
[2024-12-29 06:19] LABS: Albumin, Blood 2.9 g/dL (3.4-5.0); Anion Gap 15 mmol/L (3-11); Blood Urea Nitrogen 81 mg/dL (8-24); CO2, Blood 30 mmol/L (21-32); Calcium, Blood 8.5 mg/dL (8.5-10.1); Chloride, Blood 88 mmol/L (98-108); Creatinine, Blood 2.14 mg/dL (0.60-1.20); Glucose, Blood 147 mg/dL (70-99); Phosphorus, Blood 3.7 mg/dL (2.5-4.9); Potassium, Blood 3.3 mmol/L (3.5-5.5); Sodium, Blood 130 mmol/L (136-145)
[2024-12-29 08:11] VITALS: BP 110/87
[2024-12-29 15:47] VITALS: BP 95/78
--- NOTE | 2024-12-29 17:36 | NUR ---
PT SUMMARY; NO ACUTE CHANGE FOR THE SHIFT. PT STILL TACHS UP TO 140'S WITH EXERTION MD MADE AWARE PT WAS RESTARTED BACK ON HOME DOSE OF AMIODARONE. SBP SOFT 90-110'S WIHT MAP >70'S. SATS ABOVE 95% ON RA, AFEBRILE. PT WAS C/O GROIN PAIN THIS SHIFT. PT HAS SOME EXCORIATION/REDNESS ON BOTH GROIN PHOTOS IN CHART. PT WAS OFFERED A SHOWER AND WAS AGREEABLE. BARRIER CREAM PASTE APPLIED AND PT REPORTED RELIEF LATER THIS SHIFT. PT HAS BEEN USING BEDSIDE COMMODE FOR TOILETING, ABLE TO WALK TO THE SHOWER VIA WALKER SBA. PT COMPLIANT WITH FLUID RESTRICTION AND INSULATION MACHINE OPERATOR ABLE TO DISCUSS DIABETIC DIET WITH THE PT, CBG CONTROLLED WITH SLIDING SCALE INSULIN. NO OTHER ISSUES ENCOUNTERED WILL REPORT TO ONCOMNG SHIFT
[2024-12-29 20:00] VITALS: BP 99/73
--- NOTE | 2024-12-29 21:11 | NUR ---
TRANSFER OF CARE: PATIENT IS MED/TELE STATUS AND IS BEING MOVED TO HIS NEW ROOM 302. REPORT WAS GIVEN TO MED/TELE NURSE CHRISTINA. AFTER REPORT WAS GIVEN CHRISTINA ORTIZ HAD NO FURTHER QUESTIONS, COMMENTS, OR CONCERNS AT THIS TIME. PATIENT HAS SUPPLIES IN THE ROOM GATHERED AND IS BEING MOVED VIA WHEELCHAIR TO HIS NEW ROOM.
[2024-12-30 01:00] VITALS: BP 93/64
[2024-12-30 04:09] VITALS: BP 138/120
[2024-12-30 05:22] VITALS: BP 110/58
--- NOTE | 2024-12-30 05:36 | NUR ---
SHIFT SUMMARY PT TRANSFERED FROM PCU AROUND 2129. ORIENTED TO ROOM. NO C/O PAIN. PT UP TO BSC INDEPENDENTLY. CONTINUING 1L FLUID RESTRICTION AND STRICT I&O's. VSS BUT BP SOFT. PT A-FIB LOW 100's BUT PT DID HAVE SEVERAL EPISODES OF RVR WITH THE LONGEST LASTING 12 SECONDS AROUND 0400. THIS RN WAS AT BEDSIDE WITH PT AT THE TIME AND PT WAS ASYMPTOMAIC AND DENIED ANY CHEST PAIN. HR ALSO INCREASES WHEN USING BSC. BED IN LOWEST POSITION AND CALL LIGHT IN REACH.
[2024-12-30 05:53] LABS: BASOPHILS ABSOLUTE AUTO 0.04 K/mm3 (0.00-0.23); BASOPHILS PERCENT AUTO 0 % (0-2); EOSINOPHILS ABSOLUTE AUTO 0.24 K/mm3 (0.00-0.68); EOSINOPHILS PERCENT AUTO 3 % (0-6); Hematocrit 49.9 % (37.0-53.0); Hemoglobin 17.5 g/dL (13.5-17.5); IMMATURE GRAN ABSOLUTE AUTO 0.04 K/mm3 (0.00-0.10); IMMATURE GRAN PERCENT AUTO 0 % (0-1); LYMPHOCYTES ABSOLUTE AUTO 1.35 K/mm3 (0.84-5.20); LYMPHOCYTES PERCENT AUTO 14 % (21-46); MONOCYTES ABSOLUTE AUTO 1.13 K/mm3 (0.16-1.47); MONOCYTES PERCENT AUTO 12 % (4-13); Mean Corpuscular HGB Conc 35.1 g/dL (31.5-36.5); Mean Corpuscular Volume 101 fL (80-100); NEUTROPHILS ABSOLUTE AUTO 6.99 K/mm3 (1.96-9.15); NEUTROPHILS PERCENT AUTO 71 % (41-73); NRBC ABSOLUTE 0.00 K/mm3 (0.00-0.02); NRBC Auto 0.0 /100 WBC (0.0-0.2); Platelet Count 262 K/mm3 (150-400); RDW Coefficient Variation 14.1 % (11.7-14.2); RDW Standard Deviation 52.1 fL (35.1-46.3)
[2024-12-30 06:22] LABS: Alanine Aminotransfer (ALT/SGP 277.0 U/L (12-78); Albumin, Blood 2.7 g/dL (3.4-5.0); Albumin/Globulin Ratio 0.5 (0.8-1.8); Anion Gap 9.0 mmol/L (3-11); Aspartate Aminotrans (AST/SGOT 122.0 U/L (12-37); Bilirubin, Direct 2.3 mg/dL (0.0-0.3); Bilirubin, Indirect 1.5 mg/dL (0.1-0.7); Bilirubin, Total 3.8 mg/dL (0.1-1.0); Blood Urea Nitrogen 78.0 mg/dL (8-24); CO2, Blood 32.0 mmol/L (21-32); Calcium, Blood 8.8 mg/dL (8.5-10.1); Chloride, Blood 91.0 mmol/L (98-108); Creatinine, Blood 2.06 mg/dL (0.60-1.20); Globulin, Blood 5.2 g/dL (2.2-4.0); Glucose, Blood 195.0 mg/dL (70-99); Magnesium, Blood 2.1 mg/dL (1.6-2.4); Phosphorus, Blood 4.2 mg/dL (2.5-4.9); Potassium, Blood 3.0 mmol/L (3.5-5.5); Sodium, Blood 129.0 mmol/L (136-145); Total Protein, Blood 7.9 g/dL (6.4-8.2)
[2024-12-30 07:25] VITALS: BP 110/70
--- NOTE | 2024-12-30 07:37 | NUR ---
NOTIFY. CALL FROM [employer] THAT HR HAS BUMPED UP TO 120S-140S. PT DENIES FEELING ANY PALPITATIONS, NO CHEST PAIN OR SOB. MANUAL BP DONE. DR DOWNEY NOTIFIED AND TELEPHONE ORDER TO GIVE 0900 AMIODARONE, EPIERENONE AND METOPROLOL EARLY (DONE).
[2024-12-30 12:18] VITALS: BP 126/90
[2024-12-30] MEDS ORDERED: AMIODARONE HCL200 M1 PO (12:44)
[2024-12-30] MEDS ORDERED: ELIQUIS5 M2 PO (12:45)
[2024-12-30] MEDS ORDERED: JARDIANCE10 MG PO (12:46)
[2024-12-30] MEDS ORDERED: EPLE25 PO (12:47)
[2024-12-30] MEDS ORDERED: BASAGLAR K100 UNIT/1 SC (12:48)
--- NOTE | 2024-12-30 12:48 | NUR ---
TELE CALLED STATES H/R UP TO 120 AND TOUCHING 140, CONTINUES AFIB. PT STATES ONLY FEELS A BIT LIGHT HEADED, NO OTHER SYMPTOMS. CHECKED WITH TELE AGAIN, NOW HANGING IN LOW 100'S, AFIB. CALLED DR MOYA, NO NEW ORDERS.
[2024-12-30] MEDS ORDERED: HUMALOG KW100 UNIT/1 SC (12:52)
[2024-12-30] MEDS ORDERED: Isosorbide Mono30 MG PO (12:53)
[2024-12-30] MEDS ORDERED: METO50ER PO (12:54)
[2024-12-30] MEDS ORDERED: B-1100 M1 PO (12:54)
--- NOTE | 2024-12-30 14:37 | NUR ---
RN NOTE MR ESCALONA IS ORIENTATED X 4. HE HAS BEEN GETTING UP INDEPENDENTLY TO USE BEDSIDE COMMODE. HE C/O GENERALLY FEELING FATIGUED. HE DENIES FEELING SOB. HE VERBALISED UNDERSTANDING OF VERBAL AND WRITTEN DISCHARGE INSTRUCTIONS. MEDS WERE FAXED TO [facility] AND MR ESCALONA VERBALISED UNDERSTANING OF IMPORTANCE OF TAKING MEDICATIONS AND WHAT THEY ARE FOR. PIV REMOVED INTACT. TELEMETRY REMOVED. HE IS AWAITING RIDE. OF NOTE HR UP TO 140 WHEN PRIMARY RN WAS ON LUNCH BREAK, RELIEF RN JI REPORTED CALLING DR DOWNEY AND THAT IT WAS OK TO DISCHARGE PT. HEART RATE WAS RUNNING 95 TO 105 BEFORE TELEMETRY WAS DC'D.
[2024-12-30 14:43] VITALS: BP 120/75
--- NOTE | 2024-12-30 14:59 | NUR ---
DISCHARGE NOTE ASSISTED VIA WHEELCHAIR TO EXIT TO MEET FRIEND/RIDE AT 1450HRS. NO NEW QUESTIONS OR CONCERNS PRIOR TO DISCHARGE.
[2024-12-30] MEDS ORDERED: Insulin Glargine-Yfgn 100 Unit/mL 3 ML SYR SC SCH (21:00)
== END 2024-12-30 14:50 | disposition home health service (06) | DRG 291 ==
LOC: ER 14:28 → PCU 18:27 → MEDS 12-29 21:22
PROVIDERS: Emergency Medicine; Hospitalist; Internal Medicine Nephrology; Nurse Practitioner Acute Care; Registered Nurse; ADMIT Student in an Organized Health Care Education/Training Program
PROC: 5A09457 Assistance with Respiratory Ventilation, 24-96 Consecutive Hours, Continuous Positive Airway Pressure (ICD-10-PCS; principal; 2024-12-23)
DX: I13.0 Hypertensive heart and chronic kidney disease with heart failure and stage 1 through stage 4 chronic kidney disease, or unspecified chronic kidney disease (principal); I50.23 Acute on chronic systolic (congestive) heart failure; J96.00 Acute respiratory failure, unspecified whether with hypoxia or hypercapnia; E87.1 Hypo-osmolality and hyponatremia; I48.92 Unspecified atrial flutter; N17.9 Acute kidney failure, unspecified; N18.4 Chronic kidney disease, stage 4 (severe); I48.20 Chronic atrial fibrillation, unspecified; Z91.148 Patient's other noncompliance with medication regimen for other reason; I25.10 Atherosclerotic heart disease of native coronary artery without angina pectoris; I25.2 Old myocardial infarction; F10.20 Alcohol dependence, uncomplicated; I42.6 Alcoholic cardiomyopathy; I42.7 Cardiomyopathy due to drug and external agent; K74.60 Unspecified cirrhosis of liver; D63.1 Anemia in chronic kidney disease; R73.9 Hyperglycemia, unspecified; E87.6 Hypokalemia; E83.42 Hypomagnesemia; Z79.01 Long term (current) use of anticoagulants; Z79.899 Other long term (current) drug therapy; Z87.891 Personal history of nicotine dependence; Z86.711 Personal history of pulmonary embolism; Z90.49 Acquired absence of other specified parts of digestive tract
CPT/HCPCS: 36415; 36600; 71046; 76700; 76857; 80048; 80053; 80069; 80076; 82248; 82803; 82947; 83036; 83735; 83880; 84100; 84132; 84484; 85014; 85018; 85025; 93005; 93010; 93306; 93926; 94660; 94760; 94762; 96374; 97110; 97112; 97116; 97161; 99285-25; A9270; J0282; J1160; J1815; J1938; J3475; J3480; J7050

== ENCOUNTER 2025-01-21 19:23 | Emergency (ER) | payer OTHER ==
[~2025-01-21] VITALS: Ht 190.5 cm; Wt 99.3 kg
[~2025-01-21 19:23] MED LIST changes: +AMIODARONE HCL200 M1 PO; +B-1100 M1 PO; +BASAGLAR K100 UNIT/1 SC; +EPLE25 PO; +HUMALOG KW100 UNIT/1 SC; +Isosorbide Mono30 MG PO; +JARDIANCE10 MG PO
[2025-01-21 20:01] LABS: BASOPHILS ABSOLUTE AUTO 0.03 K/mm3 (0.00-0.23); BASOPHILS PERCENT AUTO 0 % (0-2); EOSINOPHILS ABSOLUTE AUTO 0.05 K/mm3 (0.00-0.68); EOSINOPHILS PERCENT AUTO 1 % (0-6); Hematocrit 45.7 % (37.0-53.0); Hemoglobin 15.3 g/dL (13.5-17.5); IMMATURE GRAN ABSOLUTE AUTO 0.02 K/mm3 (0.00-0.10); IMMATURE GRAN PERCENT AUTO 0 % (0-1); LYMPHOCYTES ABSOLUTE AUTO 1.43 K/mm3 (0.84-5.20); LYMPHOCYTES PERCENT AUTO 20 % (21-46); MONOCYTES ABSOLUTE AUTO 0.84 K/mm3 (0.16-1.47); MONOCYTES PERCENT AUTO 12 % (4-13); Mean Corpuscular HGB Conc 33.5 g/dL (31.5-36.5); Mean Corpuscular Volume 105 fL (80-100); NEUTROPHILS ABSOLUTE AUTO 4.69 K/mm3 (1.96-9.15); NEUTROPHILS PERCENT AUTO 66 % (41-73); NRBC ABSOLUTE 0.00 K/mm3 (0.00-0.02); NRBC Auto 0.0 /100 WBC (0.0-0.2); Platelet Count 246 K/mm3 (150-400); RDW Coefficient Variation 14.6 % (11.7-14.2); RDW Standard Deviation 56.7 fL (35.1-46.3)
[2025-01-21 23:01] LABS: Ethanol (Alcohol), Blood, Med 10.0 mg/dL
[2025-01-21 23:14] LABS: U Amphetamine Screen Not Detected; U Barbituate Screen Not Detected; U Benzodiazapine Screen Not Detected; U Buprenorphine Screen Not Detected; U Cannabinoids Screen Not Detected; U Cocaine Screen Not Detected; U Methadone Screen Not Detected; U Methamphetamine Screen Not Detected; U Opiates Screen Not Detected; U Oxycodone Screen Not Detected; U Phencyclidine Screen Not Detected
[2025-01-21 23:17] LABS: Alanine Aminotransfer (ALT/SGP 22.0 U/L (12-78); Albumin, Blood 3.2 g/dL (3.4-5.0); Albumin/Globulin Ratio 0.6 (0.8-1.8); Anion Gap 7.0 mmol/L (3-11); Aspartate Aminotrans (AST/SGOT 32.0 U/L (12-37); Bilirubin, Total 2.0 mg/dL (0.1-1.0); Blood Urea Nitrogen 24.0 mg/dL (8-24); CO2, Blood 27.0 mmol/L (21-32); Calcium, Blood 8.5 mg/dL (8.5-10.1); Chloride, Blood 105.0 mmol/L (98-108); Creatinine, Blood 1.49 mg/dL (0.60-1.20); Globulin, Blood 5.2 g/dL (2.2-4.0); Glucose, Blood 135.0 mg/dL (70-99); Potassium, Blood 4.3 mmol/L (3.5-5.5); Sodium, Blood 135.0 mmol/L (136-145); Total Protein, Blood 8.4 g/dL (6.4-8.2)
[2025-01-21 23:30] VITALS: BP 145/104
[2025-01-21] MEDS ORDERED: FURO20 PO (23:47)
== END 2025-01-21 23:55 | disposition home or self-care (01) ==
LOC: ER 19:23
PROVIDERS: Emergency Medicine
DX: I13.0 Hypertensive heart and chronic kidney disease with heart failure and stage 1 through stage 4 chronic kidney disease, or unspecified chronic kidney disease (principal); I50.20 Unspecified systolic (congestive) heart failure; N18.2 Chronic kidney disease, stage 2 (mild); I25.10 Atherosclerotic heart disease of native coronary artery without angina pectoris; R79.89 Other specified abnormal findings of blood chemistry; Z87.891 Personal history of nicotine dependence; Z79.01 Long term (current) use of anticoagulants; Z79.4 Long term (current) use of insulin; Z79.899 Other long term (current) drug therapy
CPT/HCPCS: 36415; 71046; 80053; 80320; 83690; 83880; 84484; 85025; 93005; 93010; 96374; 99284-25; A9270; J1938